=== PATIENT | male | born 1960 | race Caucasian/White ===

== ENCOUNTER → 2017-01-11 | Outpatient (REF) | payer OTHER ==
[~2017-01-11] MED LIST: ACET500C PO; ALLO10TA PO; DILT120C79 PO; KLOR1TAB77 PO; LASI40TA PO; LISI40TAB PO; MAGN400T2 PO; METO50TA2 PO; NORC10TA2 PO; PRAD150C PO; SIMV20TA2 PO; TORS20TA2 PO; ZICAGEL2 PO
[2017-01-11 17:40] LABS: ALBUMIN 4.1 GM/DL (3.2-5.2); ALBUMIN/GLOBULIN RATIO 1.28 (1.00-1.93); BILIRUBIN,TOTAL 0.9 MG/DL (0.2-1.0); CALCIUM LEVEL 8.8 MG/DL (8.5-10.1); CREATININE FOR GFR 1.61 MG/DL (0.70-1.30); GLOMERULAR FILTRATION RATE 47.5 (>56); TOTAL PROTEIN 7.3 GM/DL (6.4-8.2); URIC ACID 6.9 MG/DL (3.5-7.2)
== END ==
LOC: M SFHCCLAY 12:31
PROVIDERS: ATTEND Nurse Practitioner
DX: I10 Essential (primary) hypertension (principal)

== ENCOUNTER → 2017-06-23 | Outpatient (REF) | payer OTHER ==
[~2017-06-23] MED LIST changes: -METO50TA2 PO; +METO50TA7 PO; -NORC10TA2 PO; +NORC10TA21 PO
[2017-06-23 13:01] LABS: ALBUMIN 4.3 GM/DL (3.2-5.2); ALBUMIN/GLOBULIN RATIO 1.26 (1.00-1.93); BILIRUBIN,TOTAL 0.8 MG/DL (0.2-1.0); CALCIUM LEVEL 9.6 MG/DL (8.5-10.1); CREATININE FOR GFR 1.53 MG/DL (0.70-1.30); GLOMERULAR FILTRATION RATE 50.2 (>56); POTASSIUM SERUM 4.9 MEQ/L (3.5-5.1); TOTAL PROTEIN 7.7 GM/DL (6.4-8.2); URIC ACID 6.8 MG/DL (3.5-7.2)
== END ==
LOC: M SFHCCLAY 09:31
PROVIDERS: ATTEND Nurse Practitioner
DX: I10 Essential (primary) hypertension (principal); M10.9 Gout, unspecified; G47.30 Sleep apnea, unspecified

== ENCOUNTER → 2017-08-09 | Outpatient (REF) | payer OTHER ==
[2017-08-09 20:32] LABS: FOLATE 3.2 NG/ML (>5.4)
== END ==
LOC: M SFHCCLAY 11:46
PROVIDERS: ATTEND Family Medicine
DX: G62.9 Polyneuropathy, unspecified (principal)

== ENCOUNTER → 2017-08-09 | Outpatient (REF) | payer OTHER ==
[2017-08-09 19:40] LABS: VITAMIN B12 LEVEL 410 PG/ML
[2017-08-09 19:41] LABS: FOLATE 3.5 NG/ML
[2017-08-09 19:48] LABS: BASO # 0.1 10^3/uL (0.0-0.2); BASO % 0.8 % (0.0-1.0); EOS # 0.2 10^3/uL (0.0-0.50); EOS % 1.8 % (0.0-3.0); IMMATURE GRANULOCYTE % 0.6 % (0-0); LYMPH # 1.6 10^3/uL (1.5-4.5); MEAN CORPUSCULAR HEMOGLOBIN 34.3 pg (27.0-33.0); MEAN CORPUSCULAR HGB CONC 34.1 g/dl (32.0-36.5); MEAN CORPUSCULAR VOLUME 100.7 fl (80.0-96.0); MONO # 0.9 10^3/uL (0.0-0.8); MONO % 6.7 % (0.0-5.0); NEUTROPHILS # 9.8 10^3/uL (1.8-7.7); NEUTROPHILS % 77.1 % (36.0-66.0); PLATELET COUNT, AUTOMATED 219 10^3/uL (150-450); RED CELL DISTRIBUTION WIDTH 13.3 % (11.5-14.5); WHITE BLOOD COUNT 12.6 10^3/uL (4.0-10.0)
[2017-08-09 19:52] LABS: ALBUMIN/GLOBULIN RATIO 1.25 (1.00-1.93); ALKALINE PHOSPHATASE 59 U/L (45-117); ALT/SGPT 36 U/L (12-78); ANION GAP 8 MEQ/L (8-16); AST/SGOT 21 U/L (7-37); BILIRUBIN,TOTAL 1.3 MG/DL (0.2-1.0); BLOOD UREA NITROGEN 20 MG/DL (7-18); CALCIUM LEVEL 9.2 MG/DL (8.5-10.1); CARBON DIOXIDE LEVEL 30 MEQ/L (21-32); CHLORIDE LEVEL 102 MEQ/L (98-107); CREATININE FOR GFR 1.55 MG/DL (0.70-1.30); GLOMERULAR FILTRATION RATE 49.4 (>56); GLUCOSE, FASTING 159 MG/DL (70-105); POTASSIUM SERUM 3.7 MEQ/L (3.5-5.1); SODIUM LEVEL 140 MEQ/L (136-145); TOTAL PROTEIN 7.2 GM/DL (6.4-8.2)
[2017-08-09 20:13] LABS: ERYTHROCYTE SEDIMENTATION RATE 14 mm/hr (0-20)
[2017-08-11 15:24] LABS: ALBUMIN 4.26 GM/DL (3.29-5.55); ALBUMIN % 59.1 % (55.8-66.1); GAMMA GLOBULIN % 12.1 % (11.1-18.8)
[2017-08-12 14:16] LABS: SJOGREN'S ANTI SS-A <0.2 AI (0.0-0.9); SJOGREN'S ANTI SS-B <0.2 AI (0.0-0.9)
== END ==
LOC: M LABDRAWC 16:41
PROVIDERS: ATTEND Psychiatry & Neurology Neurology
DX: G62.9 Polyneuropathy, unspecified (principal)

== ENCOUNTER → 2018-01-06 | Outpatient (CLI) | payer OTHER | LOC: M PAIN 12:30 | DX: G89.29 Other chronic pain (principal); G62.9 Polyneuropathy, unspecified; I11.0 Hypertensive heart disease with heart failure; E78.5 Hyperlipidemia, unspecified; M10.9 Gout, unspecified; I48.91 Unspecified atrial fibrillation; G47.33 Obstructive sleep apnea (adult) (pediatric); G57.93 Unspecified mononeuropathy of bilateral lower limbs; I34.1 Nonrheumatic mitral (valve) prolapse; I50.9 Heart failure, unspecified; Z79.01 Long term (current) use of anticoagulants; Z79.899 Other long term (current) drug therapy; Z87.891 Personal history of nicotine dependence; Z88.8 Allergy status to other drugs, medicaments and biological substances | CPT/HCPCS: G0463 ==

== ENCOUNTER → 2018-01-27 | Outpatient (CLI) | payer OTHER | LOC: M PAIN 15:00 | DX: G62.9 Polyneuropathy, unspecified (principal); I10 Essential (primary) hypertension; E78.5 Hyperlipidemia, unspecified; I48.91 Unspecified atrial fibrillation; G47.33 Obstructive sleep apnea (adult) (pediatric); Z79.01 Long term (current) use of anticoagulants; Z79.891 Long term (current) use of opiate analgesic; Z79.899 Other long term (current) drug therapy; Z88.8 Allergy status to other drugs, medicaments and biological substances; Z87.891 Personal history of nicotine dependence | CPT/HCPCS: G0463 ==

== ENCOUNTER → 2018-03-13 | Outpatient (CLI) | payer OTHER | LOC: M PAIN 14:30 | DX: G62.9 Polyneuropathy, unspecified (principal); I10 Essential (primary) hypertension; E78.5 Hyperlipidemia, unspecified; M10.9 Gout, unspecified; I48.91 Unspecified atrial fibrillation; Z79.01 Long term (current) use of anticoagulants; Z79.891 Long term (current) use of opiate analgesic; Z79.899 Other long term (current) drug therapy; Z87.891 Personal history of nicotine dependence; Z88.8 Allergy status to other drugs, medicaments and biological substances | CPT/HCPCS: G0463 ==

== ENCOUNTER → 2018-04-24 | Outpatient (CLI) | payer OTHER | LOC: M PAIN 13:45 | DX: G62.9 Polyneuropathy, unspecified (principal); I10 Essential (primary) hypertension; E78.5 Hyperlipidemia, unspecified; I48.91 Unspecified atrial fibrillation; G47.33 Obstructive sleep apnea (adult) (pediatric); I34.0 Nonrheumatic mitral (valve) insufficiency; Z79.01 Long term (current) use of anticoagulants; Z79.891 Long term (current) use of opiate analgesic; Z79.899 Other long term (current) drug therapy; Z88.8 Allergy status to other drugs, medicaments and biological substances; Z87.39 Personal history of other diseases of the musculoskeletal system and connective tissue; Z86.79 Personal history of other diseases of the circulatory system; Z87.891 Personal history of nicotine dependence | CPT/HCPCS: G0463 ==

== ENCOUNTER → 2018-05-15 | Outpatient (REF) | payer OTHER ==
[2018-05-15 16:40] LABS: BASO # 0.1 10^3/uL (0.0-0.2); BASO % 1.2 % (0.0-1.0); EOS # 0.4 10^3/uL (0.0-0.50); EOS % 3.9 % (0.0-3.0); HEMATOCRIT 43.1 % (42.0-52.0); IMMATURE GRANULOCYTE % 0.9 % (0-3.0); LYMPH % 20.7 % (24.0-44.0); MEAN CORPUSCULAR HEMOGLOBIN 33.9 pg (27.0-33.0); MEAN CORPUSCULAR HGB CONC 34.8 g/dl (32.0-36.5); MEAN CORPUSCULAR VOLUME 97.3 fl (80.0-96.0); MONO % 9.8 % (0.0-5.0); NEUTROPHILS # 6.3 10^3/uL (1.8-7.7); NEUTROPHILS % 63.5 % (36.0-66.0); PLATELET COUNT, AUTOMATED 224 10^3/uL (150-450); RED BLOOD COUNT 4.43 10^6/uL (4.30-6.10); WHITE BLOOD COUNT 9.8 10^3/uL (4.0-10.0)
[2018-05-15 16:46] LABS: ESTIMATED AVERAGE GLUCOSE 126 MG/DL (60-110)
[2018-05-15 16:49] LABS: ALBUMIN 3.9 GM/DL (3.2-5.2); ALBUMIN/GLOBULIN RATIO 1.05 (1.00-1.93); ALKALINE PHOSPHATASE 63 U/L (45-117); ALT/SGPT 28 U/L (12-78); ANION GAP 8 MEQ/L (8-16); AST/SGOT 23 U/L (7-37); BILIRUBIN,TOTAL 1.7 MG/DL (0.2-1.0); BLOOD UREA NITROGEN 24 MG/DL (7-18); CALCIUM LEVEL 8.6 MG/DL (8.5-10.1); CARBON DIOXIDE LEVEL 32 MEQ/L (21-32); CHLORIDE LEVEL 101 MEQ/L (98-107); CREATININE FOR GFR 1.75 MG/DL (0.70-1.30); FREE T4 1.05 NG/DL (0.76-1.46); GLOMERULAR FILTRATION RATE 42.8 (>56); GLUCOSE, FASTING 116 MG/DL (70-100); POTASSIUM SERUM 3.7 MEQ/L (3.5-5.1); SODIUM LEVEL 141 MEQ/L (136-145); TOTAL PROTEIN 7.6 GM/DL (6.4-8.2)
[2018-05-15 16:50] LABS: FOLATE > 24.0 NG/ML (>5.4)
== END ==
LOC: M SFHCCLAY 11:27
DX: E53.8 Deficiency of other specified B group vitamins (principal); E78.5 Hyperlipidemia, unspecified; R73.9 Hyperglycemia, unspecified; I10 Essential (primary) hypertension; I48.91 Unspecified atrial fibrillation
CPT/HCPCS: 82746

== ENCOUNTER → 2018-06-28 | Outpatient (CLI) | payer OTHER | LOC: M PAIN 14:45 | DX: G62.9 Polyneuropathy, unspecified (principal); I10 Essential (primary) hypertension; I48.91 Unspecified atrial fibrillation; E78.5 Hyperlipidemia, unspecified; G47.33 Obstructive sleep apnea (adult) (pediatric); E66.01 Morbid (severe) obesity due to excess calories; Z68.41 Body mass index [BMI] 40.0-44.9, adult; Z79.01 Long term (current) use of anticoagulants; Z79.891 Long term (current) use of opiate analgesic; Z79.899 Other long term (current) drug therapy; Z88.8 Allergy status to other drugs, medicaments and biological substances; Z86.79 Personal history of other diseases of the circulatory system; Z87.39 Personal history of other diseases of the musculoskeletal system and connective tissue; Z87.891 Personal history of nicotine dependence | CPT/HCPCS: G0463 ==

== ENCOUNTER → 2018-08-28 | Outpatient (CLI) | payer OTHER | LOC: M PAIN 14:15 | DX: G62.9 Polyneuropathy, unspecified (principal); I10 Essential (primary) hypertension; E78.5 Hyperlipidemia, unspecified; I48.91 Unspecified atrial fibrillation; G47.33 Obstructive sleep apnea (adult) (pediatric); Z79.01 Long term (current) use of anticoagulants; E66.01 Morbid (severe) obesity due to excess calories; Z68.41 Body mass index [BMI] 40.0-44.9, adult; Z79.899 Other long term (current) drug therapy; Z79.891 Long term (current) use of opiate analgesic; Z88.8 Allergy status to other drugs, medicaments and biological substances; Z86.79 Personal history of other diseases of the circulatory system; Z87.39 Personal history of other diseases of the musculoskeletal system and connective tissue; Z87.891 Personal history of nicotine dependence | CPT/HCPCS: G0463 ==

== ENCOUNTER → 2018-12-11 | Outpatient (CLI) | payer OTHER ==
[~2018-12-11] MED LIST changes: -DILT120C79 PO; +DILT1CAP48 PO; -LASI40TA PO; +LASI40TA9 PO
--- NOTE | 2018-12-23 23:51 | ECWPNPC ---
PATIENT NAME: BUSHRA CAIRAS : 1960 GENDER: MALE VISIT DATE: 12/11/2018 DISCHARGE DATE: 12/11/18 1450 VISIT LOCKED DATE TIME: PHYSICIAN: MATI SMITH MD PHYSICIAN PAGER NO: [phone] RESOURCE: MATI SMITH MD REASON FOR APPOINTMENT 1. NEUROPATHY HISTORY OF PRESENT ILLNESS HISTORY OF PRESENT ILLNESS: PAIN THE PATIENT DESCRIBES THE PAIN... 58 YEAR OLD MALE PATIENT WITH A HISTORY OF CHRONIC LOW BACK AND LEG PAIN. THE PATIENT DESCRIBES THE PAIN BURNING, SORE, SHARP, STABBING, AND CONTINUOUS WITH A PAIN SCORE OF 5-9/10 DEPENDING ON PHYSICAL ACTIVITY. 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 THE PATIENT IS CURRENTLY USING TRAMADOL, LYRICA, AND HYDROCODONE TO AID IN PAIN RELIEF. THE PATIENT REPORTS HAVING A HEART ATTACK ON 10/18/2018 AND HIS CARDIAC CONDITION IS CURRENTLY BEING OPTIMIZED. PATIENT DENIES UNEXPLAINABLE WEIGHT LOSS, FEVER, CHILLS, NEW CHANGES ON HIS URINARY OR BOWEL CONTROL. FALL RISK SCREENING: SCREENING : NO FALLS IN THE PAST YEAR. CURRENT MEDICATIONS TAKING FOLIC ACID 1 MG TABLET 1 TABLET ORALLY ONCE A DAY TAKING ALLOPURINOL 300 MG TABLET 1 TABLET ORALLY DAILY TAKING METOPROLOL TARTRATE 100 MG TABLET 1 TABLET ORALLY BID TAKING TORSEMIDE 10 MG TABLET 1 TABLET ORALLY BID TAKING PRADAXA 150 MG 1 TABLET TWICE A DAY TAKING SLOW-MAG 400 TABLET DELAYED RELEASE 1 TABLET ORALLY DAILY, NOTES: CURRENTLY OUT OF TAKING NORTRIPTYLINE HCL 25 MG CAPSULE 1 CAPSULE ORALLY TWICE A DAY TAKING LYRICA 50 MG CAPSULE 1 CAPSULE ORALLY FOR PAIN TWICE A DAY TAKING DILTIAZEM HCL ER 240 MG CAPSULE EXTENDED RELEASE 24 HOUR 1 CAPSULE ON AN EMPTY STOMACH IN THE MORNING ORALLY ONCE A DAY TAKING AMIODARONE HCL 200 MG TABLET 1 TABLET ORALLY ONCE A DAY TAKING RANOLAZINE ER 500 MG TABLET EXTENDED RELEASE 12 HOUR 1 TABLET ORALLY TWICE A DAY TAKING SPIRONOLACTONE 25 MG TABLET 1 TABLET ORALLY TAKING NORCO 10-325 MG TABLET 1 TABLET NEEDED ORALLY EVERY 8 HOURS NEEDED FOR PAIN MDD3 TAKING TRAMADOL HCL 50 MG TABLET 1-2 TAB ORALLY EVERY 6 HRS PRN PAIN MDD=4 NOT-TAKING ROLLING WALKER 1 1 DIRECTED DX: G62.9 NOT-TAKING GABAPENTIN 300 MG CAPSULE 1 CAPSULE ORALLY FOR PAIN BEFORE BEDTIME NOT-TAKING GABAPENTIN 600 MG TABLET 1 CAPSULE ORALLY DAILY DISCONTINUED NORTRIPTYLINE HCL 25 MG CAPSULE 1 CAPSULE ORALLY TWICE A DAY, NOTES: DUPLICATE DISCONTINUED FOLIC ACID 1 MG TABLET 1 TABLET ORALLY ONCE A DAY, NOTES: DUPLICATE DISCONTINUED METOPROLOL SUCCINATE ER 100 MG TABLET EXTENDED RELEASE 24 HOUR 1 TABLET ORALLY ONCE A DAY, NOTES: DUPLICATE MEDICATION LIST REVIEWED AND RECONCILED WITH THE PATIENT PAST MEDICAL HISTORY HYPERTENSION HYPERLIPIDEMIA GOUT ATRIAL FIB MICH- USES BIPAP- FOLLOWS WITH PULMONARY NEUROPATHY BOTH FEET ENLARGED HEART MITRAL REGURGITATION CONGESTIVE HEART FAILURE ALLERGIES LISINOPRIL: LIGHTHEADEDNESS - SIDE EFFECTS CYMBALTA: NAUSEA/VOMITING - SIDE EFFECTS SURGICAL HISTORY 4TH METACARPAL RIGHT HAND SURGERY, A CHILD 1979 WISDOM TEETH EXTRACT CYST REMOVAL- LEFT SHOULDER 08/2016 CARDIOVERSION X 5 [id number] HEART [facility]ATH-[facility] 04/12/18 INSERTION OF BI-VENTRICULAR ICD @[facility]' 10/26/2018 FAMILY HISTORY FATHER: 69 YRS, DIVERTICULITIS, ANEURYSM MOTHER: 83 YRS, CARDIAC DISEASE, DIAGNOSED WITH HEART DISEASE 3DAUGHTER(S) . SOCIAL HISTORY GENERAL: TOBACCO USE ARE YOU A:FORMER SMOKER HOW LONG HAS IT BEEN SINCE YOU LAST SMOKED?> 10 YEARS VAPORNO E-CIGARETTENO LATEX QUESTIONNAIRE LATEX ALLERGY : HAVE YOU EVER DEVELOPED ANY TYPE OF REACTION AFTER HANDLING LATEX PRODUCTS SUCH RUBBER GLOVES, CONDOMS, DIAPHRAGMS, BALLOONS, SOCKS, OR UNDERWEAR?NO LATEX ALLERGY : HAVE YOU EVER DEVELOPED ANY TYPE OF REACTION DURING OR AFTER DENTAL APPOINTMENT, VAGINAL/RECTAL EXAMINATION, SURGICAL PROCEDURE, OR ANY OTHER EXPOSURE?NO LATEX RISK : HAVE YOU EVER HAD ANY DIFFICULTY BREATHING OR HIVES AFTER EATING OR HANDLING ANY FRUITS, OR VEGETABLES; SUCH KIWI, BANANAS, STONE FRUITS, OR CHESTNUTSNO LATEX RISK : DO YOU HAVE A PREVIOUS PERSONAL HISTORY OF MORE THAN NINE SURGERIES, SPINA BIFIDA, OR REPEATED CATHERTIZATIONS? NO LATEX RISK : ARE YOU FREQUENTLY EXPOSED TO LATEX PRODUCTS IN YOUR OCCUPATION?NO DATE ASKED : 12/11/2018 BMI CARE GOAL FOLLOW-UP ABOVE NORMAL BMI FOLLOW-UPDIETARY MANAGEMENT EDUCATION, GUIDANCE, AND COUNSELING ALCOHOL SCREENING DID YOU HAVE A DRINK CONTAINING ALCOHOL IN THE PAST YEAR?YES HOW OFTEN DID YOU HAVE SIX OR MORE DRINKS ON ONE OCCASION IN THE PAST YEAR?NEVER (0 POINTS) HOW MANY DRINKS DID YOU HAVE ON A TYPICAL DAY WHEN YOU WERE DRINKING IN THE PAST YEAR?1 OR 2 (0 POINTS) HOW OFTEN DID YOU HAVE A DRINK CONTAINING ALCOHOL IN THE PAST YEAR?TWO TO THREE TIMES PER WEEK (3 POINTS) POINTS3 INTERPRETATIONNEGATIVE RECREATIONAL DRUG USE DRUG USE?NO MARIJUANA IN PAST, NONE RECENTLY NO CAFFEINE CAFFEINE USE?NO SEXUAL HX HAD SEX IN THE LAST 12 MONTHS (VAGINAL, ORAL, OR ANAL)?NO HAVE YOU EVER HAD AN STD?NO HIV / HEP-C SCREENING HIV TEST OFFERED TO PATIENT:YES DATE OFFERED:09/11/2018 TEST ACCEPTED:NO HEP-C TEST OFFERED TO PATIENT:YES DATE OFFERED:09/11/2018 REASON:PATIENT DECLINED TEST ACCEPTED:NO REASON:PATIENT DECLINED BROCHURE PROVIDED TO PATIENTNO SIKH [id number] YAZIDISM LANGUAGE LANGUAGES SPOKEN:VINCENTIAN EDUCATION LEVEL OF EDUCATION:COLLEGE LEARNING BARRIERS / SPECIAL NEEDS CHANGE FROM LAST VISIT?NO 11/10/2018 BARRIERS TO LEARNING?NO HEARING IMPAIRED?NO VISION IMPAIRED?YES COGNITIVELY IMPAIRED?NO :CORRECTIVE LENSES READINESS TO LEARN?YES LEARNING PREFERENCES?NO LEARNING CAPABILITIES PRESENT?YES EMOTIONAL BARRIERS?NO SPECIAL DEVICES?YES :OTHER WALKING STICK ENTRY LEVEL BUYER NEEDED?NO NO DOMESTIC VIOLENCE DO YOU FEEL SAFE IN YOUR ENVIRONMENT?YES 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 DIET: LOW FAT, LOW CHOLESTEROL, LOW SODIUM. EXERCISE: NONE. MARITAL STATUS: .. OTHERS AT HOME: NONE. PAIN CLINIC PFS, CLERGY, PUBLIC HEALTH REFERRALS PFS REFERRAL NEEDED?NO CLERGY REFERRAL NEEDED?NO PUBLIC HEALTH REFERRAL NEEDED?NO WAS THE PROVIDER NOTIFIED OF ANY PERTINENT INFO?NO HAS THE PATIENT BEEN EDUCATED REGARDING HIS/HER PLAN OF CARE?YES HAS THE PATIENT BEEN EDUCATED REGARDING PAIN, THE RISK FOR PAIN, THE IMPORTANCE OF EFFECTIVE PAIN MANAGEMENT, AND THE PAIN ASSESSMENT PROCESS?YES ADVANCE DIRECTIVE ADVANCE DIRECTIVE DISCUSSED WITH PATIENT:YES PT STATES HE DOES NOT HAVE HCP AND DECLINES INFO AT THIS TIME 12/11/18 REVIEWED WITH PT 12/11/18 1320 BV. HOSPITALIZATION/MAJOR DIAGNOSTIC PROCEDURE MULTIPLE HOSPITALIZATIONS [facility] HEART ATTACK/PLACEMENT OF ICD 10/23/2018-10/30/2018 REVIEW OF SYSTEMS REVIEWED BY: PROVIDER: MATI SMITH MD . CONSTITUTIONAL: ANY CHANGE IN YOUR MEDICAL CONDITION? YES, PT HAD HEART ATTACK AT HOME ON 2017. WAS TAKEN TO [facility]. PACEMAKER/DEFIBRILLATOR WAS PUT IN. WAS DISCHARGED FROM [facility] ON . PT ALSO HAD CARDIAC ABLATION DONE 12/08/18 . CHILLS NO . FEVER NO . INFECTION: DO YOU HAVE NEW INFECTIONS? NO . DO YOU HAVE HISTORY OF MRSA? NO . MUSCULOSKELETAL: ANY NEW PATTERNS OF PAIN OR NUMBNESS? NO . GASTROENTEROLOGY: ANY NEW CHANGE IN BOWEL CONTROL? NO . GENITOURINARY: ANY NEW CHANGE IN BLADDER CONTROL? NO . IS THERE A CHANCE YOU COULD BE ? NO . HEMATOLOGY/LYMPH: DO YOU TAKE ANY BLOOD THINNERS? (FOR EXAMPLE- COUMADIN, PLAVIX, AGGRENOX, PLATEL, PRADAXA, OR XARELTO) YES, PRADAXA . WHEN WAS YOUR LAST DOSE? DATE: TIME: . NEUROLOGY: HAVE YOU FALLEN IN THE PAST 12 MONTHS? YES, PT HAS HAD A FEW FALLS IN THE PAST COUPLE MONTHS. LAST FALL WAS 2018 AND WAS TAKEN TO THE HOSPITAL AFTER THE FALL AND TREATED. . ANY NEW EXTREMITY NUMBNESS OR WEAKNESS? NO . CARDIOLOGY: DO YOU HAVE A PACEMAKER OR DEFIBRILLATOR? YES, PACEMAKER/DEFIBRILLATOR PUT IN IN 2018 . RESPIRATORY: HAVE YOU BEEN SICK IN THE PAST WEEK? NO . FEVER NO . FLU LIKE SYMPTOMS? NO . COUGH NO . INTEGUMENTARY: DO YOU HAVE ANY RASHES OR OPEN SORES? NO . ALLERGIC/IMMUNO: ARE YOU ALLERGIC TO IV DYE? NO . ANY NEW ALLERGIES? NO . PSYCHIATRIC: DO YOU HAVE THOUGHTS OF HURTING YOURSELF OR SOMEONE ELSE? NO . ARE YOU ABUSED, NEGLECTED, OR IN AN UNSAFE ENVIRONMENT? NO . ENDOCRINOLOGY: ARE YOU DIABETIC? NO . OTHER: DO YOU NEED ANY PRESCRIPTIONS? NO . IF YES, PLEASE LIST: ____ . ANY NEW PROBLEMS WITH YOUR MEDICATIONS? NO . WHEN DID YOU LAST EAT? ____ . WHEN DID YOU LAST DRINK? ____ . WHAT DID YOU LAST DRINK? ____ . NAME OF PERSON DRIVING YOU HOME? ____ . DO YOU HAVE ANY OTHER QUESTIONS OR CONCERNS NO . VITAL SIGNS WT 310 LBS, HT 72 IN, BMI 42.04 INDEX, BP 137/98 MM HG, HR 90 /MIN, RR 18 /MIN, TEMP 96.8 F, OXYGEN SAT % 98% O2 AT 3L, NA INITIALS AW 1252, REVIEWED BY: BV. EXAMINATION GENERAL EXAMINATION: PATIENT IS ALERT O X 3 AND COOPERATIVE. PATIENT IS USING OXYGEN. TENDERNESS IN THE LOW BACK AREA AND OVER BOTH FEET. MRI OF THE LUMBAR SPINE DONE ON 08/30/2017 SHOWS A DISC PROTRUSION AT MULTIPLE LEVELS. ASSESSMENTS INTERVERTEBRAL DISC DISORDER WITH RADICULOPATHY OF LUMBAR REGION - M51.16 (PRIMARY) NEUROPATHY - G62.9 TREATMENT INTERVERTEBRAL DISC DISORDER WITH RADICULOPATHY OF LUMBAR REGION CLINICAL NOTES: WE DISCUSSED SEVERAL ISSUES WITH MR. CARIAS'S PAIN MANAGEMENT CASE. THE PATIENT WILL CONTINUE WITH THE SAME MEDICATIONS AND I WILL INCREASE THE TRAMADOL TO 140 TABLETS PER MONTH. ISTOP _#[id number] WAS REVIEWED. I WILL PERFORM A PILL COUNTING AND A URINE TOXICOLOGY TODAY. THE PATIENT WILL FOLLOW UP IN 2 MONTHS. INSTRUCTIONS WERE GIVEN, QUESTIONS WERE ANSWERED, PATIENT REPORTS UNDERSTANDING AND AGREES WITH THE PLAN. I, NAHID BHATT, DOCUMENTED THE ABOVE INFORMATION ACTING A SCRIBE FOR DR. SMITH. I HAVE REVIEWED THE ABOVE DOCUMENT, WRITTEN BY NAHID BHATT SCRIBKun AND I VERIFY THAT IT IS ACCURATE. . OTHERS REFILL LYRICA CAPSULE, 50 MG, 1 CAPSULE, ORALLY FOR PAIN, TWICE A DAY, 30 DAYS, 60 CAPSULE, REFILLS 0 REFILL NORCO TABLET, 10-325 MG, 1 TABLET NEEDED, ORALLY, EVERY 8 HOURS NEEDED FOR PAIN MDD3, 30 DAY(S), 90, REFILLS 0 REFILL TRAMADOL HCL TABLET, 50 MG, 1-2 TAB, ORALLY, EVERY 6 HRS PRN PAIN MDD=5, 30 DAYS, 140, REFILLS 0 PROCEDURE CODES FA211 ESTABILISHED PATIENT [facility] FACILITY CHARGE G8427 CURRENT MEDS W/DOSAGES DOCUMENTED G8730 PAIN ASSESS POS TOOL F/U PLAN DOC DISPOSITION & COMMUNICATION FOLLOW UP 2 MONTHS (REASON: LOW BACK & NEUROPATHY) ELECTRONICALLY SIGNED BY MATI SMTIH MD, MD ON 12/22/2018 AT 12:38 PM EDT DISCLAIMER : THIS IS A VISIT SUMMARY EXTRACTED FROM THE [email or web address] CHART. IT IS NOT A COPY OF THE [email or web address] PROGRESS NOTE. MTDD
== END ==
LOC: M PAIN 12:45
PROVIDERS: ATTEND Anesthesiology
DX: M51.16 Intervertebral disc disorders with radiculopathy, lumbar region (principal); G62.9 Polyneuropathy, unspecified; I48.91 Unspecified atrial fibrillation; I10 Essential (primary) hypertension; E78.5 Hyperlipidemia, unspecified; G47.33 Obstructive sleep apnea (adult) (pediatric); E66.01 Morbid (severe) obesity due to excess calories; Z68.41 Body mass index [BMI] 40.0-44.9, adult; Z79.01 Long term (current) use of anticoagulants; Z79.891 Long term (current) use of opiate analgesic; Z79.899 Other long term (current) drug therapy; Z91.81 History of falling; Z95.0 Presence of cardiac pacemaker; Z88.8 Allergy status to other drugs, medicaments and biological substances; Z87.39 Personal history of other diseases of the musculoskeletal system and connective tissue; Z86.79 Personal history of other diseases of the circulatory system; Z87.891 Personal history of nicotine dependence

== ENCOUNTER → 2019-03-02 | Outpatient (REF) | payer OTHER ==
[~2019-03-02] MED LIST changes: +DILT120C78 PO; -DILT1CAP48 PO; +LISI40TA52 PO; -LISI40TAB PO; -NORC10TA21 PO; +NORC1TAB5 PO; -PRAD150C PO; +PRAD150C6 PO
[2019-03-02 17:30] LABS: BASO # 0.1 10^3/uL (0.0-0.2); BASO % 1.1 % (0.0-1.0); EOS # 0.4 10^3/uL (0.0-0.50); EOS % 4.6 % (0.0-3.0); HEMATOCRIT 44.7 % (42.0-52.0); HEMOGLOBIN 15.6 g/dl (13.5-17.5); LYMPH # 2.4 10^3/uL (1.5-4.5); LYMPH % 26.2 % (24.0-44.0); MEAN CORPUSCULAR HEMOGLOBIN 33.7 pg (27.0-33.0); MEAN CORPUSCULAR HGB CONC 34.9 g/dl (32.0-36.5); MEAN CORPUSCULAR VOLUME 96.5 fl (80.0-96.0); MONO # 0.7 10^3/uL (0.0-0.8); MONO % 7.9 % (0.0-5.0); NEUTROPHILS # 5.3 10^3/uL (1.8-7.7); NEUTROPHILS % 59.6 % (36.0-66.0); PLATELET COUNT, AUTOMATED 231 10^3/uL (150-450); RED BLOOD COUNT 4.63 10^6/uL (4.30-6.10)
[2019-03-02 17:47] LABS: ALBUMIN 3.9 GM/DL (3.2-5.2); BILIRUBIN,TOTAL 0.6 MG/DL (0.2-1.0); CALCIUM LEVEL 8.9 MG/DL (8.5-10.1); CREATININE FOR GFR 1.87 MG/DL (0.70-1.30); FOLATE 20.9 NG/ML (>5.4); FREE T4 0.92 NG/DL (0.76-1.46); GLOMERULAR FILTRATION RATE 39.5 (>56); MAGNESIUM LEVEL 1.9 MG/DL (1.8-2.4); POTASSIUM SERUM 4.4 MEQ/L (3.5-5.1); THYROID STIMULATING HORMONE 4.33 uIU/ML (0.358-3.740); TOTAL PROTEIN 7.9 GM/DL (6.4-8.2)
== END ==
LOC: M SFHCCLAY 12:58
PROVIDERS: ATTEND Family Medicine
DX: Z51.81 Encounter for therapeutic drug level monitoring (principal); Z79.01 Long term (current) use of anticoagulants; I47.2 Ventricular tachycardia; E53.8 Deficiency of other specified B group vitamins; I48.91 Unspecified atrial fibrillation

== ENCOUNTER → 2019-03-02 | Outpatient (REF) | payer OTHER ==
[2019-03-02 17:42] LABS: CHOLESTEROL LEVEL 226 MG/DL (<200); CHOLESTEROL RISK RATIO 5.947 (<5); HDL CHOLESTEROL 38 MG/DL (>40); NON-HDL-C 188 MG/DL; NT-PRO BNP 989 PG/ML (<125); TRIGLYCERIDES LEVEL 409 MG/DL (<150)
== END ==
LOC: M LABDRAWC 16:44
PROVIDERS: ATTEND Internal Medicine Cardiovascular Disease
DX: I50.9 Heart failure, unspecified (principal)

== ENCOUNTER → 2019-03-19 | Outpatient (CLI) | payer OTHER ==
--- NOTE | 2019-03-28 00:29 | ECWPNPC ---
PATIENT NAME: BUSHRA CARIAS : 1960 GENDER: MALE VISIT DATE: 03/19/2019 DISCHARGE DATE: 03/19/199 VISIT LOCKED DATE TIME: PHYSICIAN: MATI SMITH MD PHYSICIAN PAGER NO: [phone] RESOURCE: MATI SMITH MD REASON FOR APPOINTMENT 1. DISCUSS MEDICATION-LOW BACK & NEUROPATHY HISTORY OF PRESENT ILLNESS HISTORY OF PRESENT ILLNESS: PAIN THE PATIENT DESCRIBES THE PAIN... 59 YEAR OLD MALE PATIENT WITH A HISTORY OF CHRONIC NEUROPATHY AND LOW BACK PAIN. THE PATIENT DESCRIBES THE PAIN BURNING, SHARP, STABBING, SHOOTING, AND CONTINUOUS WITH A PAIN SCORE OF 6-9/10 DEPENDING ON PHYSICAL ACTIVITY. THE PATIENT SAYS THAT HE HAS DIFFICULTY DOING DAILY ACTIVITIES SUCH COOKING AND CLEANING DUE TO THIS PAIN. THE PATIENT IS CURRENTLY USING TRAMADOL, LYRICA, AND NORCO TO AID IN PAIN RELIEF. PATIENT DENIES UNEXPLAINABLE WEIGHT LOSS, FEVER, CHILLS, NEW CHANGES ON HIS URINARY OR BOWEL CONTROL. FALL RISK SCREENING: SCREENING :NO FALLS REPORTED IN THE LAST YEAR CURRENT MEDICATIONS TAKING FOLIC ACID 1 MG TABLET 1 TABLET ORALLY ONCE A DAY TAKING ALLOPURINOL 300 MG TABLET 1 TABLET ORALLY DAILY TAKING METOPROLOL TARTRATE 100 MG TABLET 1 TABLET ORALLY BID TAKING TORSEMIDE 10 MG TABLET 1 TABLET ORALLY BID TAKING PRADAXA 150 MG 1 TABLET TWICE A DAY TAKING DILTIAZEM HCL ER 240 MG CAPSULE EXTENDED RELEASE 24 HOUR 1 CAPSULE ON AN EMPTY STOMACH IN THE MORNING ORALLY ONCE A DAY TAKING AMIODARONE HCL 200 MG TABLET 1 TABLET ORALLY ONCE A DAY TAKING RANOLAZINE ER 500 MG TABLET EXTENDED RELEASE 12 HOUR 1 TABLET ORALLY TWICE A DAY TAKING SPIRONOLACTONE 25 MG TABLET 1 TABLET ORALLY DAILY TAKING NORTRIPTYLINE HCL 25 MG CAPSULE 1 CAPSULE ORALLY TWICE A DAY TAKING LYRICA 50 MG CAPSULE 1 CAPSULE ORALLY FOR PAIN TWICE A DAY TAKING NORCO 10-325 MG TABLET 1 TABLET NEEDED ORALLY EVERY 8 HRS MDD=3 TAKING TRAMADOL HCL 50 MG TABLET 1 TAB ORALLY EVERY 6 HRS PRN PAIN MDD=4 TAKING ROLLING WALKER 1 1 DIRECTED DX: G62.9 NOT-TAKING SLOW-MAG 400 TABLET DELAYED RELEASE 1 TABLET ORALLY DAILY NOT-TAKING GABAPENTIN 300 MG CAPSULE 1 CAPSULE ORALLY FOR PAIN BEFORE BEDTIME NOT-TAKING GABAPENTIN 600 MG TABLET 1 CAPSULE ORALLY DAILY MEDICATION LIST REVIEWED AND RECONCILED WITH THE PATIENT PAST MEDICAL HISTORY HYPERTENSION HYPERLIPIDEMIA GOUT ATRIAL FIB MICH- USES BIPAP- FOLLOWS WITH PULMONARY NEUROPATHY BOTH FEET ENLARGED HEART MITRAL REGURGITATION CONGESTIVE HEART FAILURE NM 09/2018 CARDIAC ABLASION 12/08/18 ALLERGIES LISINOPRIL: LIGHTHEADEDNESS - SIDE EFFECTS CYMBALTA: NAUSEA/VOMITING - SIDE EFFECTS SURGICAL HISTORY 4TH METACARPAL RIGHT HAND SURGERY, A CHILD 1979 WISDOM TEETH EXTRACT CYST REMOVAL- LEFT SHOULDER 08/2016 CARDIOVERSION X 5 [id number] HEART CATH-[facility] 04/12/18 INSERTION OF BI-VENTRICULAR ICD @[facility] 10/27/18 CARDIAC ABLASION 11/10/18 FAMILY HISTORY FATHER: 69 YRS, DIVERTICULITIS, ANEURYSM MOTHER: 83 YRS, CARDIAC DISEASE, DIAGNOSED WITH HEART DISEASE 3DAUGHTER(S) . SOCIAL HISTORY GENERAL: TOBACCO USE ARE YOU A:FORMER SMOKER HOW LONG HAS IT BEEN SINCE YOU LAST SMOKED?> 10 YEARS VAPORNO E-CIGARETTENO HIV / HEP-C SCREENING HIV TEST OFFERED TO PATIENT:YES DATE OFFERED:09/11/2018 TEST ACCEPTED:NO HEP-C TEST OFFERED TO PATIENT:YES DATE OFFERED:09/11/2018 REASON:PATIENT DECLINED TEST ACCEPTED:NO REASON:PATIENT DECLINED BROCHURE PROVIDED TO PATIENTNO OTHERS AT HOME: NONE. EDUCATION LEVEL OF EDUCATION:COLLEGE DIET: LOW FAT, LOW CHOLESTEROL, LOW SODIUM. LANGUAGE LANGUAGES SPOKEN:HEBREW NO DOMESTIC VIOLENCE DO YOU FEEL SAFE IN YOUR ENVIRONMENT?YES BMI CARE GOAL FOLLOW-UP ABOVE NORMAL BMI FOLLOW-UPDIETARY MANAGEMENT EDUCATION, GUIDANCE, AND COUNSELING RECREATIONAL DRUG USE DRUG USE?NO MARIJUANA IN PAST, NONE RECENTLY EXERCISE: NONE. 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 N/A HAS THE PATIENT BEEN EDUCATED REGARDING HIS/HER PLAN OF CARE?YES HAS THE PATIENT BEEN EDUCATED REGARDING PAIN, THE RISK FOR PAIN, THE IMPORTANCE OF EFFECTIVE PAIN MANAGEMENT, AND THE PAIN ASSESSMENT PROCESS?YES LATEX QUESTIONNAIRE LATEX ALLERGY : HAVE YOU EVER DEVELOPED ANY TYPE OF REACTION AFTER HANDLING LATEX PRODUCTS SUCH RUBBER GLOVES, CONDOMS, DIAPHRAGMS, BALLOONS, SOCKS, OR UNDERWEAR?NO LATEX ALLERGY : HAVE YOU EVER DEVELOPED ANY TYPE OF REACTION DURING OR AFTER DENTAL APPOINTMENT, VAGINAL/RECTAL EXAMINATION, SURGICAL PROCEDURE, OR ANY OTHER EXPOSURE?NO LATEX RISK : HAVE YOU EVER HAD ANY DIFFICULTY BREATHING OR HIVES AFTER EATING OR HANDLING ANY FRUITS, OR VEGETABLES; SUCH KIWI, BANANAS, STONE FRUITS, OR CHESTNUTSNO LATEX RISK : DO YOU HAVE A PREVIOUS PERSONAL HISTORY OF MORE THAN NINE SURGERIES, SPINA BIFIDA, OR REPEATED CATHERTIZATIONS? NO LATEX RISK : ARE YOU FREQUENTLY EXPOSED TO LATEX PRODUCTS IN YOUR OCCUPATION?NO DATE ASKED : 03/19/2019 NO CAFFEINE CAFFEINE USE?NO ADVANCE DIRECTIVE ADVANCE DIRECTIVE DISCUSSED WITH PATIENT:YES 03/21/19 PT STATES HE DOES NOT HAVE ANY ADVANCE DIRECTIVES AND HE DECLINES INFORMATION ON HCP AT THIS TIME. AD DRUZE [id number] YAZDANISM MARITAL STATUS: .. 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 SEXUAL HX HAD SEX IN THE LAST 12 MONTHS (VAGINAL, ORAL, OR ANAL)?NO HAVE YOU EVER HAD AN STD?NO REVIEWED WITH PT 12/11/18 1320 BV. HOSPITALIZATION/MAJOR DIAGNOSTIC PROCEDURE MULTIPLE HOSPITALIZATIONS FOR HIS HEART [facility] ATTACK/PLACEMENT OF ICD 10/23/2018-10/30/2018 REVIEW OF SYSTEMS REVIEWED BY: PROVIDER: MATI SMITH MD . CONSTITUTIONAL: ANY CHANGE IN YOUR MEDICAL CONDITION? NO . CHILLS NO . FEVER NO . INFECTION: DO YOU HAVE NEW INFECTIONS? NO . DO YOU HAVE HISTORY OF MRSA? NO . MUSCULOSKELETAL: ANY NEW PATTERNS OF PAIN OR NUMBNESS? YES, INCREASE IN PAIN DUE TO HAVING TO GET TO HOUSE BY BOAT AND THEN CARRYING SUPPLIES FROM BOAT TO HOUSE . GASTROENTEROLOGY: ANY NEW CHANGE IN BOWEL CONTROL? NO . GENITOURINARY: ANY NEW CHANGE IN BLADDER CONTROL? NO . IS THERE A CHANCE YOU COULD BE ? NO . HEMATOLOGY/LYMPH: DO YOU TAKE ANY BLOOD THINNERS? (FOR EXAMPLE- COUMADIN, PLAVIX, AGGRENOX, PLATEL, PRADAXA, OR XARELTO) YES PRADAXA . WHEN WAS YOUR LAST DOSE? DATE: TIME:03/19/19 10:30 A.M. . NEUROLOGY: HAVE YOU FALLEN IN THE PAST 12 MONTHS? YES, SEVERAL TIMES. 2-3 TIMES IN SEP. HE JUST PASSED OUT AND HE ALSO FELL X2 DUE TO NM . ANY NEW EXTREMITY NUMBNESS OR WEAKNESS? YES, HANDS AND FINGER NUMBNESS AND STABBING PAIN THAT IS WORSE ALL. AT NIGHT-STARTED LAST 3 MONTHS. EXACERBATED PAIN IN LOWER BACK OVER THE LAST 3 MONTHS . CARDIOLOGY: DO YOU HAVE A PACEMAKER OR DEFIBRILLATOR? YES, ICD (PACEMAKER AND DEFIB) . RESPIRATORY: HAVE YOU BEEN SICK IN THE PAST WEEK? NO . FEVER NO . FLU LIKE SYMPTOMS? NO . COUGH NO . INTEGUMENTARY: DO YOU HAVE ANY RASHES OR OPEN SORES? NO . ALLERGIC/IMMUNO: ARE YOU ALLERGIC TO IV DYE? NO . ANY NEW ALLERGIES? NO . PSYCHIATRIC: DO YOU HAVE THOUGHTS OF HURTING YOURSELF OR SOMEONE ELSE? NO . ARE YOU ABUSED, NEGLECTED, OR IN AN UNSAFE ENVIRONMENT? NO . ENDOCRINOLOGY: ARE YOU DIABETIC? NO . OTHER: DO YOU NEED ANY PRESCRIPTIONS? YES . IF YES, PLEASE LIST: HYDROCODONE/ACETAMINOPHEN, TRAMADOL . ANY NEW PROBLEMS WITH YOUR MEDICATIONS? NO . WHEN DID YOU LAST EAT? ____ . WHEN DID YOU LAST DRINK? ____ . WHAT DID YOU LAST DRINK? ____ . NAME OF PERSON DRIVING YOU HOME? ____ . DO YOU HAVE ANY OTHER QUESTIONS OR CONCERNS YES - PAIN IS MUCH INCREASED DUE TO SUMMER ACTIVITIES AND DUTIES. THE CURRENT PAIN MEDS ARE NOT EFFECTIVE. . VITAL SIGNS WT 329.8 LBS, HT 72 IN, BMI 44.72 INDEX, BP 140/88 MM HG, HR 88 /MIN, RR 20 /MIN, TEMP 97.9 F, OXYGEN SAT % 98%, NA INITIALS SC 14:53, REVIEWED BY: SHERRON. EXAMINATION GENERAL EXAMINATION: PATIENT IS ALERT O X 3 AND COOPERATIVE. PRESENCE OF TRIGGER POINTS AND BANDS OF TISSUE WITH RESTRICTION OF MOVEMENT OF THE BACK. ASSESSMENTS MYALGIA, OTHER SITE - M79.18 (PRIMARY) NEUROPATHY - G62.9 TREATMENT MYALGIA, OTHER SITE CLINICAL NOTES: WE DISCUSSED SEVERAL ISSUES WITH MR. CARIAS'S PAIN MANAGEMENT CASE. DUE TO THE TRIGGER POINTS, BANDS OF TISSUE, AND RESTRICTION OF MOVEMENT, I WOULD LIKE TO MOVE FORWARD WITH A TRIGGER POINT INJECTION AT THIS TIME. WE DISCUSSED THE BENEFITS, RISKS, AND ALTERNATIVES OF THE INJECTION AND THE PATIENT WOULD LIKE TO PROCEED. I WOULD LIKE TO GET A CLEARANCE FROM THE PATIENT'S PRIMARY CARE TO HOLD PRADAXA FOR FUTURE INJECTIONS. I WILL INCREASE THE PATIENT'S NORCO TO 4 TABLETS PER DAY FOR 10 DAYS OUT OF THE MONTH AND I WILL INCREASE THE LYRICA TO 75MG TABLETS. ISTOP _#[id number] WAS REVIEWED. THE PATIENT WILL FOLLOW UP IN 1 MONTH. INSTRUCTIONS WERE GIVEN, QUESTIONS WERE ANSWERED, PATIENT REPORTS UNDERSTANDING AND AGREES WITH THE PLAN. I, NAHID BHATT, DOCUMENTED THE ABOVE INFORMATION ACTING A SCRIBE FOR DR. SMITH. I HAVE REVIEWED THE ABOVE DOCUMENT, WRITTEN BY NAHID ARANAIBKun AND I VERIFY THAT IT IS ACCURATE. . NEUROPATHY REFILL LYRICA CAPSULE, 75 MG, 1 CAPSULE, ORALLY, TWICE A DAY, 30 DAYS, 60 CAPSULE, REFILLS 0 REFILL NORCO TABLET, 10-325 MG, 1 TABLET NEEDED, ORALLY, EVERY 6 HRS MDD=4, 30 DAYS, 100, REFILLS 0 REFILL TRAMADOL HCL TABLET, 50 MG, 1 TAB, ORALLY, EVERY 6 HRS PRN PAIN MDD=4, 30 DAYS, 120, REFILLS 0 OTHERS NOTES: OPTIONS: TRIGGER POINT INJECTION MATERIAL WAS PRINTED. PROCEDURE CODES FA211 ESTABILISHED PATIENT [facility] CHARGE G8427 CURRENT MEDS W/DOSAGES DOCUMENTED G8730 PAIN ASSESS POS TOOL F/U PLAN DOC DISPOSITION & COMMUNICATION ELECTRONICALLY SIGNED BY MATI SMITH MD, MD ON 03/27/2019 AT 03:46 PM EDT DISCLAIMER : THIS IS A VISIT SUMMARY EXTRACTED FROM THE [employer] CHART. IT IS NOT A COPY OF THE [employer] PROGRESS NOTE. MTDD
== END ==
LOC: M PAIN 15:15
PROVIDERS: ATTEND Anesthesiology
DX: M79.18 Myalgia, other site (principal); G62.9 Polyneuropathy, unspecified; I11.0 Hypertensive heart disease with heart failure; E78.5 Hyperlipidemia, unspecified; M10.9 Gout, unspecified; I48.91 Unspecified atrial fibrillation; G47.33 Obstructive sleep apnea (adult) (pediatric); I50.9 Heart failure, unspecified; I25.2 Old myocardial infarction; I34.0 Nonrheumatic mitral (valve) insufficiency; G57.93 Unspecified mononeuropathy of bilateral lower limbs; Z79.01 Long term (current) use of anticoagulants; Z79.891 Long term (current) use of opiate analgesic; Z79.899 Other long term (current) drug therapy; Z87.891 Personal history of nicotine dependence; Z88.8 Allergy status to other drugs, medicaments and biological substances

== ENCOUNTER → 2019-03-26 | Outpatient (CLI) | payer OTHER ==
[~2019-03-26] MED LIST changes: +BUPIVACAINE HCL 0.25% 10 ML VIAL As Ordered ONE; +BUPIVACAINE HCL 0.25% 30 ML VIAL As Ordered ONE; +TRIAMCINOLONE ACETONIDE SUSP 40 MG/ML VIAL (J3301) As Ordered ONE; +diazePAM 5 MG TAB As Ordered ONE; +oxyCODONE 5MG TAB As Ordered ONE
--- NOTE | 2019-04-06 00:11 | ECWPNPC ---
PATIENT NAME: BUSHRA CARIAS : 1960 GENDER: MALE VISIT DATE: 03/26/2019 DISCHARGE DATE: 03/26/19 1642 VISIT LOCKED DATE TIME: PHYSICIAN: MATI SMITH MD PHYSICIAN PAGER NO: [phone] RESOURCE: MATI SMITH MD REASON FOR APPOINTMENT 1. LOW BACK TPI HISTORY OF PRESENT ILLNESS HISTORY OF PRESENT ILLNESS: PAIN THE PATIENT DESCRIBES THE PAIN... FALL RISK SCREENING: SCREENING :NO FALLS REPORTED IN THE LAST YEAR CURRENT MEDICATIONS TAKING FOLIC ACID 1 MG TABLET 1 TABLET ORALLY ONCE A DAY, NOTES: 03-26-19799 TAKING ALLOPURINOL 300 MG TABLET 1 TABLET ORALLY DAILY, NOTES: 03-26-19799 TAKING METOPROLOL TARTRATE 100 MG TABLET 1 TABLET ORALLY BID, NOTES: 03-26-19799 TAKING TORSEMIDE 10 MG TABLET 1 TABLET ORALLY BID, NOTES: 03-26-19799 TAKING PRADAXA 150 MG 1 TABLET TWICE A DAY, NOTES: 03-26-19799 TAKING NORCO 7.5-325 MG TABLET 1-2 TABLET NEEDED ORALLY EVERY 6 HRS MDD=6, NOTES: 03-26-19 51693 TAKING NORTRIPTYLINE HCL 25 MG CAPSULE 1 CAPSULE ORALLY TWICE A DAY, NOTES: 03-26-19799 TAKING LYRICA 50 MG CAPSULE 1 CAPSULE ORALLY FOR PAIN TWICE A DAY, NOTES: 03-26-19799 TAKING TRAMADOL HCL 50 MG TABLET 1-2 TAB ORALLY EVERY 6 HRS PRN PAIN MDD=4, NOTES: YESTERDAY TAKING DILTIAZEM HCL ER 240 MG CAPSULE EXTENDED RELEASE 24 HOUR 1 CAPSULE ON AN EMPTY STOMACH IN THE MORNING ORALLY ONCE A DAY, NOTES: 03-26-18 08 TAKING AMIODARONE HCL 200 MG TABLET 1 TABLET ORALLY ONCE A DAY, NOTES: 03-26-19799 TAKING RANOLAZINE ER 500 MG TABLET EXTENDED RELEASE 12 HOUR 1 TABLET ORALLY TWICE A DAY, NOTES: 03-26-19799 TAKING SPIRONOLACTONE 25 MG TABLET 1 TABLET ORALLY , NOTES: 03-26-19799 TAKING METOPROLOL SUCCINATE ER 200 MG TABLET EXTENDED RELEASE 24 HOUR 1/2 TABLET ORALLY TWICE DAILY, NOTES: 03-26-19 07 TAKING ROLLING WALKER 1 1 DIRECTED DX: G62.9 NOT-TAKING SLOW-MAG 400 TABLET DELAYED RELEASE 1 TABLET ORALLY DAILY NOT-TAKING NORTRIPTYLINE HCL 25 MG CAPSULE 1 CAPSULE ORALLY TWICE A DAY NOT-TAKING GABAPENTIN 300 MG CAPSULE 1 CAPSULE ORALLY FOR PAIN BEFORE BEDTIME NOT-TAKING GABAPENTIN 600 MG TABLET 1 CAPSULE ORALLY DAILY MEDICATION LIST REVIEWED AND RECONCILED WITH THE PATIENT PAST MEDICAL HISTORY HYPERTENSION HYPERLIPIDEMIA GOUT ATRIAL FIB MICH- USES BIPAP- FOLLOWS WITH PULMONARY NEUROPATHY BOTH FEET ENLARGED HEART MITRAL REGURGITATION CONGESTIVE HEART FAILURE [place] 09/2018 CARDIAC ABLASION 12/08/18 ALLERGIES LISINOPRIL: LIGHTHEADEDNESS - SIDE EFFECTS CYMBALTA: NAUSEA/VOMITING - SIDE EFFECTS SURGICAL HISTORY 4TH METACARPAL RIGHT HAND SURGERY, A CHILD 1979 WISDOM TEETH EXTRACT CYST REMOVAL- LEFT SHOULDER 08/2016 CARDIOVERSION X 5 [id number] HEART CATH-[facility] 04/12/18 INSERTION OF BI-VENTRICULAR ICD @[facility] 10/27/18 CARDIAC ABLASION 11/10/18 FAMILY HISTORY FATHER: 69 YRS, DIVERTICULITIS, ANEURYSM MOTHER: 83 YRS, CARDIAC DISEASE, DIAGNOSED WITH HEART DISEASE 3DAUGHTER(S) . SOCIAL HISTORY GENERAL: TOBACCO USE ARE YOU A:FORMER SMOKER HOW LONG HAS IT BEEN SINCE YOU LAST SMOKED?> 10 YEARS VAPORNO E-CIGARETTENO HIV / HEP-C SCREENING HIV TEST OFFERED TO PATIENT:YES DATE OFFERED:03/21/2019 TEST ACCEPTED:NO HEP-C TEST OFFERED TO PATIENT:YES DATE OFFERED:03/21/2019 REASON:PATIENT DECLINED TEST ACCEPTED:NO REASON:PATIENT DECLINED BROCHURE PROVIDED TO PATIENTNO OTHERS AT HOME: NONE. EDUCATION LEVEL OF EDUCATION:COLLEGE DIET: LOW FAT, LOW CHOLESTEROL, LOW SODIUM. LANGUAGE LANGUAGES SPOKEN:URDU NO DOMESTIC VIOLENCE DO YOU FEEL SAFE IN YOUR ENVIRONMENT?YES BMI CARE GOAL FOLLOW-UP ABOVE NORMAL BMI FOLLOW-UPDIETARY MANAGEMENT EDUCATION, GUIDANCE, AND COUNSELING RECREATIONAL DRUG USE DRUG USE?NO MARIJUANA IN PAST, NONE RECENTLY EXERCISE: NONE. LEARNING BARRIERS / SPECIAL NEEDS CHANGE FROM LAST VISIT?NO 03/19/19 BARRIERS TO LEARNING?NO HEARING IMPAIRED?NO VISION IMPAIRED?YES COGNITIVELY IMPAIRED?NO :CORRECTIVE LENSES READINESS TO LEARN?YES LEARNING PREFERENCES?NO LEARNING CAPABILITIES PRESENT?YES EMOTIONAL BARRIERS?NO SPECIAL DEVICES?YES :OTHER WALKING STICK, 4 WHEEL WALKER AT HOME COMMUNICATIONS PLANNER NEEDED?NO PAIN CLINIC PFS, CLERGY, PUBLIC HEALTH REFERRALS PFS REFERRAL NEEDED?NO CLERGY REFERRAL NEEDED?NO PUBLIC HEALTH REFERRAL NEEDED?NO WAS THE PROVIDER NOTIFIED OF ANY PERTINENT INFO? N/A HAS THE PATIENT BEEN EDUCATED REGARDING HIS/HER PLAN OF CARE?YES HAS THE PATIENT BEEN EDUCATED REGARDING PAIN, THE RISK FOR PAIN, THE IMPORTANCE OF EFFECTIVE PAIN MANAGEMENT, AND THE PAIN ASSESSMENT PROCESS?YES LATEX QUESTIONNAIRE LATEX ALLERGY : HAVE YOU EVER DEVELOPED ANY TYPE OF REACTION AFTER HANDLING LATEX PRODUCTS SUCH RUBBER GLOVES, CONDOMS, DIAPHRAGMS, BALLOONS, SOCKS, OR UNDERWEAR?NO LATEX ALLERGY : HAVE YOU EVER DEVELOPED ANY TYPE OF REACTION DURING OR AFTER DENTAL APPOINTMENT, VAGINAL/RECTAL EXAMINATION, SURGICAL PROCEDURE, OR ANY OTHER EXPOSURE?NO DATE ASKED : 03/19/2019 LATEX RISK : HAVE YOU EVER HAD ANY DIFFICULTY BREATHING OR HIVES AFTER EATING OR HANDLING ANY FRUITS, OR VEGETABLES; SUCH KIWI, BANANAS, STONE FRUITS, OR CHESTNUTSNO LATEX RISK : DO YOU HAVE A PREVIOUS PERSONAL HISTORY OF MORE THAN NINE SURGERIES, SPINA BIFIDA, OR REPEATED CATHERTIZATIONS? NO LATEX RISK : ARE YOU FREQUENTLY EXPOSED TO LATEX PRODUCTS IN YOUR OCCUPATION?NO NO CAFFEINE CAFFEINE USE?NO ADVANCE DIRECTIVE ADVANCE DIRECTIVE DISCUSSED WITH PATIENT:YES 03/21/19 PT STATES HE DOES NOT HAVE ANY ADVANCE DIRECTIVES AND HE DECLINES INFORMATION ON HCP AT THIS TIME. AD EPISCOPALIAN [id number] LATTER DAY MARITAL STATUS: .. 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 SEXUAL HX HAD SEX IN THE LAST 12 MONTHS (VAGINAL, ORAL, OR ANAL)?NO HAVE YOU EVER HAD AN STD?NO REVIEWED WITH PT 12/11/18 1320 BV. HOSPITALIZATION/MAJOR DIAGNOSTIC PROCEDURE MULTIPLE HOSPITALIZATIONS FOR HIS HEART [facility] ATTACK/PLACEMENT OF ICD 10/23/2018-10/30/2018 REVIEW OF SYSTEMS REVIEWED BY: PROVIDER: . CONSTITUTIONAL: ANY CHANGE IN YOUR MEDICAL CONDITION? NO . CHILLS NO . FEVER NO . INFECTION: DO YOU HAVE NEW INFECTIONS? NO . DO YOU HAVE HISTORY OF MRSA? NO . MUSCULOSKELETAL: ANY NEW PATTERNS OF PAIN OR NUMBNESS? YES BOTH FINGERS HAVE INCREASE IN [place] . GASTROENTEROLOGY: ANY NEW CHANGE IN BOWEL CONTROL? NO . GENITOURINARY: ANY NEW CHANGE IN BLADDER CONTROL? NO . IS THERE A CHANCE YOU COULD BE ? NO . HEMATOLOGY/LYMPH: DO YOU TAKE ANY BLOOD THINNERS? (FOR EXAMPLE- COUMADIN, PLAVIX, AGGRENOX, PLATEL, PRADAXA, OR XARELTO) YES PERDZXA . WHEN WAS YOUR LAST DOSE? DATE: TIME: . NEUROLOGY: ANY NEW EXTREMITY NUMBNESS OR WEAKNESS? NO . CARDIOLOGY: DO YOU HAVE A PACEMAKER OR DEFIBRILLATOR? DEFIBULATOR/PACER PLACED IN OCTOBER . RESPIRATORY: HAVE YOU BEEN SICK IN THE PAST WEEK? NO . FEVER NO . FLU LIKE SYMPTOMS? NO . COUGH NO . INTEGUMENTARY: DO YOU HAVE ANY RASHES OR OPEN SORES? NO . ALLERGIC/IMMUNO: ARE YOU ALLERGIC TO IV DYE? NO . ANY NEW ALLERGIES? NO . PSYCHIATRIC: DO YOU HAVE THOUGHTS OF HURTING YOURSELF OR SOMEONE ELSE? NO . ARE YOU ABUSED, NEGLECTED, OR IN AN UNSAFE ENVIRONMENT? NO . ENDOCRINOLOGY: ARE YOU DIABETIC? NO . OTHER: DO YOU NEED ANY PRESCRIPTIONS? NO . IF YES, PLEASE LIST: ____ . ANY NEW PROBLEMS WITH YOUR MEDICATIONS? NO . WHEN DID YOU LAST EAT? ____YESTERDAY 8 PM . WHEN DID YOU LAST DRINK? ____TODAY 11 AM . WHAT DID YOU LAST DRINK? ____WATER . NAME OF PERSON DRIVING YOU HOME? ____DANII MARIA TERESA -- . DO YOU HAVE ANY OTHER QUESTIONS OR CONCERNS NO . VITAL SIGNS WT 329.6 LBS, HT 72 IN, BMI 44.70 INDEX, BP 168/90 MM HG, HR 95 /MIN, RR 20 /MIN, TEMP 98.8 F, OXYGEN SAT % 97%, NA INITIALS SC 14:48, REVIEWED BY: KG. ASSESSMENTS MYALGIA, OTHER SITE - M79.18 (PRIMARY) PROCEDURES PN TRIGGER POINT INJECTION WITH STEROIDS PRE PROCEDURE DIAGNOSIS 1. MYALGIA 2. PAIN AT BILATERAL LOW BACK AREA. POST PROCEDURE DIAGNOSIS 1. MYALGIA 2. PAIN AT BILATERAL LOW BACK AREA. PROCEDURE TRIGGER POINT INJECTION AT RIGHT AND LEFT LOW BACK AREA. SURGEON DR. MATI SMITH NETWORK SECURITY ARCHITECT NONE ANESTHESIA LOCAL PRE PROCEDURE NOTE THE PATIENT HAS A HISTORY OF CHRONIC PAIN AT THE RIGHT AND LEFT LOWER BACK AREA. I EVALUATED THE PATIENT AND REVIEWED THE CHART. THERE IS EVIDENCE OF BANDS OF TISSUE WITH RESTRICTION OF MOVEMENT AND PRESENCE OF TRIGGER POINT AT THE AFFECTED AREA. I WENT OVER THE RISKS, ALTERNATIVES, AND BENEFITS ASSOCIATED WITH THIS PROCEDURE. THE PATIENT WOULD LIKE TO PROCEED AND GIVE CONSENT TO PERFORMED THE PROCEDURE. THE PATIENT DENIES UNEXPLAINABLE WEIGHT LOSS, FEVER, CHILLS, OR NEW CHANGES IN URINARY OR BOWEL CONTROL DESCRIPTION OF PROCEDURE THE PATIENT WAS BROUGHT TO THE PROCEDURE ROOM AND PLACED IN THE SITTING POSITION. THE AREA WAS CLEANED WITH ALCOHOL. THE PROCEDURE WAS DONE USING ASEPTIC STERILE TECHNIQUE. I CHECKED LATERALITY AND THE LEVEL WHERE THE PROCEDURE WAS GOING TO BE PERFORMED WITH THE PATIENT AND THE SUPPORTING STAFF AT THE MOMENT OF THE TIME OUT IN THE PROCEDURE ROOM. USING A 25-GAUGE NEEDLE, TRIGGER POINTS WERE INJECTED AT THE RIGHT AND LEFT LOWER BACK AREA WITH A TOTAL OF 40 ML OF BUPIVACAINE 0.25% AND KENALOG 40 MG. THERE WAS NO EVIDENCE OF BLOOD, PARESTHESIA OR CEREBROSPINAL FLUID DURING THE PROCEDURE. THE PATIENT WAS SENT TO THE RECOVERY ROOM. THE PATIENT WAS MOVING THE EXTREMITIES AND DOING WELL. THERE WAS NO COMPLICATION DURING THE PROCEDURE POST PROCEDURE NOTE THE PATIENT WILL BE SEEN IN A FOLLOW UP IN THE NEXT FEW WEEKS. INSTRUCTIONS WERE GIVEN, QUESTIONS WERE ANSWERED, AND THE PATIENT EXPRESSED UNDERSTANDING AND AGREES WITH THE PLAN. I, DARRIN LUNA, DOCUMENTED THE ABOVE INFORMATION ACTING A SCRIBE FOR DR. SMITH. I HAVE REVIEWED THE ABOVE DOCUMENT, WRITTEN BY DARRIN LUNA SCRIBKun AND I VERIFY THAT IT IS ACCURATE. PROCEDURE CODES 15792 INJ TRIGGER POINT / [employer] [facility] [employer] DISPOSITION & COMMUNICATION FOLLOW UP 3 WEEKS ELECTRONICALLY SIGNED BY MATI SMITH MD, MD ON 04/05/2019 AT 01:43 PM EDT DISCLAIMER : THIS IS A VISIT SUMMARY EXTRACTED FROM THE Consulted CHART. IT IS NOT A COPY OF THE Consulted PROGRESS NOTE. ALISHA
== END ==
LOC: M PAIN 15:00
PROVIDERS: ATTEND Anesthesiology
DX: M79.18 Myalgia, other site (principal); I11.0 Hypertensive heart disease with heart failure; E78.5 Hyperlipidemia, unspecified; M10.9 Gout, unspecified; I48.91 Unspecified atrial fibrillation; G47.33 Obstructive sleep apnea (adult) (pediatric); I34.0 Nonrheumatic mitral (valve) insufficiency; I50.9 Heart failure, unspecified; I25.2 Old myocardial infarction; G57.93 Unspecified mononeuropathy of bilateral lower limbs; Z87.891 Personal history of nicotine dependence; Z79.01 Long term (current) use of anticoagulants; Z79.891 Long term (current) use of opiate analgesic; Z79.899 Other long term (current) drug therapy; Z88.8 Allergy status to other drugs, medicaments and biological substances
CPT/HCPCS: 20552; J3301

== ENCOUNTER → 2019-05-17 | Outpatient (CLI) | payer OTHER ==
[~2019-05-17] MED LIST changes: -BUPIVACAINE HCL 0.25% 10 ML VIAL As Ordered ONE; -BUPIVACAINE HCL 0.25% 30 ML VIAL As Ordered ONE; -SIMV20TA2 PO; +SIMV20TA22 PO; -TRIAMCINOLONE ACETONIDE SUSP 40 MG/ML VIAL (J3301) As Ordered ONE; -diazePAM 5 MG TAB As Ordered ONE; -oxyCODONE 5MG TAB As Ordered ONE
--- NOTE | 2019-05-22 23:39 | ECWPNPC ---
PATIENT NAME: BUSHRA CARIAS : 1960 GENDER: MALE VISIT DATE: 05/17/2019 DISCHARGE DATE: 05/17/19 1501 VISIT LOCKED DATE TIME: PHYSICIAN: DANII CARIAS PHYSICIAN PAGER NO: [phone] RESOURCE: DANII CARIAS REASON FOR APPOINTMENT 1. POST TPI HISTORY OF PRESENT ILLNESS HISTORY OF PRESENT ILLNESS: PAIN THE PATIENT DESCRIBES THE PAIN... 59 YEAR OLD MALE IN FOR POST TPI FOLLOW UP. HE FEELS THE PROCEDURE WORKED FOR ABOUT 4 DAYS. HE RATES HIS PAIN AT A 7/10 CURRENTLY AND DESCRIBES IT SHARP, BURNING, AND STABBING. FALL RISK SCREENING: SCREENING :NO FALLS REPORTED IN THE LAST YEAR CURRENT MEDICATIONS TAKING ALLOPURINOL 300 MG TABLET 1 TABLET ORALLY DAILY TAKING TORSEMIDE 10 MG TABLET 1 TABLET ORALLY BID TAKING PRADAXA 150 MG 1 TABLET TWICE A DAY TAKING DILTIAZEM HCL ER 240 MG CAPSULE EXTENDED RELEASE 24 HOUR 1 CAPSULE ON AN EMPTY STOMACH IN THE MORNING ORALLY ONCE A DAY TAKING AMIODARONE HCL 200 MG TABLET 1 TABLET ORALLY ONCE A DAY TAKING RANOLAZINE ER 500 MG TABLET EXTENDED RELEASE 12 HOUR 1 TABLET ORALLY TWICE A DAY TAKING SPIRONOLACTONE 25 MG TABLET 1 TABLET ORALLY TAKING METOPROLOL SUCCINATE ER 200 MG TABLET EXTENDED RELEASE 24 HOUR 1/2 TABLET ORALLY TWICE DAILY TAKING ROLLING WALKER 1 1 DIRECTED DX: G62.9 TAKING FOLIC ACID 1 MG TABLET 1 TABLET ORALLY ONCE A DAY TAKING NORTRIPTYLINE HCL 25 MG CAPSULE 1 CAPSULE ORALLY TWICE A DAY TAKING NORCO 10-325 MG TABLET 1 TABLET NEEDED ORALLY EVERY 6 HRS MDD=4 TAKING LYRICA 75 MG CAPSULE 1 CAPSULE ORALLY TWICE A DAY TAKING TRAMADOL HCL 50 MG TABLET 1-2 TAB ORALLY EVERY 6 HRS PRN PAIN MDD=4 NOT-TAKING METOPROLOL TARTRATE 100 MG TABLET 1 TABLET ORALLY BID NOT-TAKING SLOW-MAG 400 TABLET DELAYED RELEASE 1 TABLET ORALLY DAILY NOT-TAKING GABAPENTIN 300 MG CAPSULE 1 CAPSULE ORALLY FOR PAIN BEFORE BEDTIME NOT-TAKING GABAPENTIN 600 MG TABLET 1 CAPSULE ORALLY DAILY MEDICATION LIST REVIEWED AND RECONCILED WITH THE PATIENT PAST MEDICAL HISTORY HYPERTENSION HYPERLIPIDEMIA GOUT ATRIAL FIB MICH- USES BIPAP- FOLLOWS WITH PULMONARY NEUROPATHY BOTH FEET ENLARGED HEART MITRAL REGURGITATION CONGESTIVE HEART FAILURE [place] 09/2018 CARDIAC ABLASION 12/08/18 PACEMAKER/DEBRIBFRILATOR 10/26/18 ALLERGIES LISINOPRIL: LIGHTHEADEDNESS - SIDE EFFECTS CYMBALTA: NAUSEA/VOMITING - SIDE EFFECTS SURGICAL HISTORY 4TH METACARPAL RIGHT HAND SURGERY, A CHILD 1979 WISDOM TEETH EXTRACT CYST REMOVAL- LEFT SHOULDER 08/2016 CARDIOVERSION X 5 [id number] [facility]ART [facility]ATH-[facility] 04/12/18 INSERTION OF BI-VENTRICULAR ICD @[facility] (PACER/DEFIBRILLATOR) 10/27/18 CARDIAC ABLASION 11/10/18 FAMILY HISTORY FATHER: 69 YRS, DIVERTICULITIS, ANEURYSM MOTHER: 83 YRS, CARDIAC DISEASE, DIAGNOSED WITH HEART DISEASE 3DAUGHTER(S) . SOCIAL HISTORY GENERAL: TOBACCO USE ARE YOU A:FORMER SMOKER HOW LONG HAS IT BEEN SINCE YOU LAST SMOKED?> 10 YEARS VAPORNO E-CIGARETTENO HIV / HEP-C SCREENING HIV TEST OFFERED TO PATIENT:YES DATE OFFERED:03/21/2019 TEST ACCEPTED:NO HEP-C TEST OFFERED TO PATIENT:YES DATE OFFERED:03/21/2019 REASON:PATIENT DECLINED TEST ACCEPTED:NO REASON:PATIENT DECLINED BROCHURE PROVIDED TO PATIENTNO OTHERS AT HOME: NONE. EDUCATION LEVEL OF EDUCATION:COLLEGE DIET: LOW FAT, LOW CHOLESTEROL, LOW SODIUM. LANGUAGE LANGUAGES SPOKEN:BARBADIAN NO DOMESTIC VIOLENCE DO YOU FEEL SAFE IN YOUR ENVIRONMENT?YES BMI CARE GOAL FOLLOW-UP ABOVE NORMAL BMI FOLLOW-UPDIETARY MANAGEMENT EDUCATION, GUIDANCE, AND COUNSELING RECREATIONAL DRUG USE DRUG USE?NO MARIJUANA IN PAST, NONE RECENTLY EXERCISE: NONE. LEARNING BARRIERS / SPECIAL NEEDS CHANGE FROM LAST VISIT?NO 03/19/19 BARRIERS TO LEARNING?NO HEARING IMPAIRED?NO VISION IMPAIRED?YES COGNITIVELY IMPAIRED?NO :CORRECTIVE LENSES READINESS TO LEARN?YES LEARNING PREFERENCES?NO LEARNING CAPABILITIES PRESENT?YES EMOTIONAL BARRIERS?NO SPECIAL DEVICES?YES :OTHER WALKING STICK, 4 WHEEL WALKER AT HOME FREQUENCY CHECKER NEEDED?NO PAIN CLINIC PFS, CLERGY, PUBLIC HEALTH REFERRALS PFS REFERRAL NEEDED?NO CLERGY REFERRAL NEEDED?NO PUBLIC HEALTH REFERRAL NEEDED?NO WAS THE PROVIDER NOTIFIED OF ANY PERTINENT INFO? N/A HAS THE PATIENT BEEN EDUCATED REGARDING HIS/HER PLAN OF CARE?YES HAS THE PATIENT BEEN EDUCATED REGARDING PAIN, THE RISK FOR PAIN, THE IMPORTANCE OF EFFECTIVE PAIN MANAGEMENT, AND THE PAIN ASSESSMENT PROCESS?YES LATEX QUESTIONNAIRE LATEX ALLERGY : HAVE YOU EVER DEVELOPED ANY TYPE OF REACTION AFTER HANDLING LATEX PRODUCTS SUCH RUBBER GLOVES, CONDOMS, DIAPHRAGMS, BALLOONS, SOCKS, OR UNDERWEAR?NO LATEX ALLERGY : HAVE YOU EVER DEVELOPED ANY TYPE OF REACTION DURING OR AFTER DENTAL APPOINTMENT, VAGINAL/RECTAL EXAMINATION, SURGICAL PROCEDURE, OR ANY OTHER EXPOSURE?NO DATE ASKED : 03/19/2019 LATEX RISK : HAVE YOU EVER HAD ANY DIFFICULTY BREATHING OR HIVES AFTER EATING OR HANDLING ANY FRUITS, OR VEGETABLES; SUCH KIWI, BANANAS, STONE FRUITS, OR CHESTNUTSNO LATEX RISK : DO YOU HAVE A PREVIOUS PERSONAL HISTORY OF MORE THAN NINE SURGERIES, SPINA BIFIDA, OR REPEATED CATHERIZATIONS? NO LATEX RISK : ARE YOU FREQUENTLY EXPOSED TO LATEX PRODUCTS IN YOUR OCCUPATION?NO NO CAFFEINE CAFFEINE USE?NO ADVANCE DIRECTIVE ADVANCE DIRECTIVE DISCUSSED WITH PATIENT:YES 03/21/19 PT STATES HE DOES NOT HAVE ANY ADVANCE DIRECTIVES AND HE DECLINES INFORMATION ON HCP AT THIS TIME. AD RESTORATIONIST [id number] TEMPLE MARITAL STATUS: .. 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 SEXUAL HX HAD SEX IN THE LAST 12 MONTHS (VAGINAL, ORAL, OR ANAL)?NO HAVE YOU EVER HAD AN STD?NO REVIEWED WITH PT 12/11/18 1320 BVREVIEWED WITH PATIENT 05/17/19 1419 NLJ. HOSPITALIZATION/MAJOR DIAGNOSTIC PROCEDURE MULTIPLE HOSPITALIZATIONS FOR HIS HEART [facility] ATTACK/PLACEMENT OF ICD 10/23/2018-10/30/2018 REVIEW OF SYSTEMS REVIEWED BY: PROVIDER: DARCIE DOLAN . CONSTITUTIONAL: ANY CHANGE IN YOUR MEDICAL CONDITION? NO . CHILLS NO . FEVER NO . INFECTION: DO YOU HAVE NEW INFECTIONS? NO . DO YOU HAVE HISTORY OF MRSA? NO . MUSCULOSKELETAL: ANY NEW PATTERNS OF PAIN OR NUMBNESS? YES- BILATERAL FEET AND LEGS FROM NEUROPATHY WELL BIALTERAL HANDS, STATES TPI IN LOWER BACK WORKED ABOUT 4 DAYS ONLY, STATES HIS BAD IS AT LEAST BACK TO PRE PROCEDURE LEVEL AN IS GETTING WORSE OVER TIME . GASTROENTEROLOGY: ANY NEW CHANGE IN BOWEL CONTROL? NO . GENITOURINARY: ANY NEW CHANGE IN BLADDER CONTROL? NO . IS THERE A CHANCE YOU COULD BE ? NO . HEMATOLOGY/LYMPH: DO YOU TAKE ANY BLOOD THINNERS? (FOR EXAMPLE- COUMADIN, PLAVIX, AGGRENOX, PLATEL, PRADAXA, OR XARELTO) YES- PRADAXA . WHEN WAS YOUR LAST DOSE? DATE: 05/17/19TIME: 1000 AM . NEUROLOGY: HAVE YOU FALLEN IN THE PAST 12 MONTHS? NO . ANY NEW EXTREMITY NUMBNESS OR WEAKNESS? YES- HANDS AND FEET, RELATE TO NEUROPATHY NOT BACK (SEES DR. NUÑEZ) . CARDIOLOGY: DO YOU HAVE A PACEMAKER OR DEFIBRILLATOR? NO . RESPIRATORY: HAVE YOU BEEN SICK IN THE PAST WEEK? NO . FEVER NO . FLU LIKE SYMPTOMS? NO . COUGH NO . INTEGUMENTARY: DO YOU HAVE ANY RASHES OR OPEN SORES? NO . ALLERGIC/IMMUNO: ARE YOU ALLERGIC TO IV DYE? NO . ANY NEW ALLERGIES? NO . PSYCHIATRIC: DO YOU HAVE THOUGHTS OF HURTING YOURSELF OR SOMEONE ELSE? NO . ARE YOU ABUSED, NEGLECTED, OR IN AN UNSAFE ENVIRONMENT? NO . ENDOCRINOLOGY: ARE YOU DIABETIC? NO . OTHER: DO YOU NEED ANY PRESCRIPTIONS? NO . IF YES, PLEASE LIST: ____ . ANY NEW PROBLEMS WITH YOUR MEDICATIONS? NO . WHEN DID YOU LAST EAT? ____ . WHEN DID YOU LAST DRINK? ____ . WHAT DID YOU LAST DRINK? ____ . NAME OF PERSON DRIVING YOU HOME? ____ . DO YOU HAVE ANY OTHER QUESTIONS OR CONCERNS YES- LYRICA, PATIENT STATES HE NEEDS ACTUAL LYRICA AND NOT THE GENERIC, WOULD LIKE TO TRY MEDICAL MARIJUANA- STATES HE HAS TALKED TO DR. SMITH PREVIOUSLY ABOUT IT . VITAL SIGNS WT 335.4 LBS, HT 72 IN, BMI 45.48 INDEX, BP 142/79 MM HG, HR 91 /MIN, RR 20 /MIN, TEMP 96.3 F, OXYGEN SAT % 95%, SAFE IN ENV? (Y/N) YES, NA INITIALS SC 14:19, REVIEWED BY: WINSTON. EXAMINATION GENERAL EXAMINATION: GENERALNO ACUTE DISTRESS, WELL NOURISHED AND HYDRATED. PSYCHAPPROPRIATE MOOD AND AFFECT . LUNGS:CLEAR TO AUSCULTATION BILATERALLY, NO WHEEZES, RHONCHI, RALES. HEART:NO MURMURS, REGULAR RATE AND RHYTHM. ASSESSMENTS INTERVERTEBRAL DISC DISORDER WITH RADICULOPATHY OF LUMBAR REGION - M51.16 (PRIMARY) TREATMENT INTERVERTEBRAL DISC DISORDER WITH RADICULOPATHY OF LUMBAR REGION CLINICAL NOTES: 59 YEAR OLD MALE IN FOR POST TPI FOLLOW UP. WE DISCUSSED REPEAT TPI WHICH WAS DECLINED AT THIS TIME. WE ALSO DISCUSSED THE POSSIBILITY OF INCREASING HIS LYRICA AND THE PATIENT WAS INFORMED THIS SUPPORT SERVICES REP WOULD DISCUSS THIS WITH DR. SMITH PRIOR TO INCREASING DOSAGE. GIVEN PRESENTING SYMPTOMS AND RESULTS OF PHYSICAL EXAMINATION RECOMMENDED FOLLOW UP IN 2 MONTHS AND POTENTIAL INCREASE IN LYRICA. , PATIENT HAS EXPRESSED UNDERSTANDING OF AND WAS IN AGREEMENT WITH TREATMENT PLAN. GIVEN TIME TO ASK QUESTIONS AND EXPRESS CONCERNS. , ISTOP REGISTRY REVIEWED AND DEMONSTRATES COMPLLIANCE. (REF #[id number] ) BRINGS IN MEDICATIONS WHICH IS APPROPRIATE FOR WHAT WAS DISPENSED. RECENT URINE TOXICOLOGY REVIEWED. NO UNAUTHORIZED MEDICATIONS. NO ILLICIT SUBSTANCES AND PRESCRIBED MEDICATIONS WERE PRESENT. PROCEDURE CODES FA211 ESTABILISHED PATIENT [facility] FACILITY CHARGE DISPOSITION & COMMUNICATION FOLLOW UP 4 WEEKS (REASON: MED INCREASE) ELECTRONICALLY SIGNED BY RYLEE OROURKE ON 05/22/2019 AT 09:29 AM EDT DISCLAIMER : THIS IS A VISIT SUMMARY EXTRACTED FROM THE [employer] CHART. IT IS NOT A COPY OF THE [employer] PROGRESS NOTE. ALISHA
== END ==
LOC: M PAIN 14:15
PROVIDERS: ATTEND Family Medicine
DX: M51.16 Intervertebral disc disorders with radiculopathy, lumbar region (principal); I10 Essential (primary) hypertension; E78.00 Pure hypercholesterolemia, unspecified; G47.33 Obstructive sleep apnea (adult) (pediatric); G62.9 Polyneuropathy, unspecified; I25.2 Old myocardial infarction; Z95.0 Presence of cardiac pacemaker; Z87.891 Personal history of nicotine dependence; Z88.8 Allergy status to other drugs, medicaments and biological substances; Z79.01 Long term (current) use of anticoagulants; E66.01 Morbid (severe) obesity due to excess calories; Z68.42 Body mass index [BMI] 45.0-49.9, adult; Z79.891 Long term (current) use of opiate analgesic; Z79.899 Other long term (current) drug therapy

== ENCOUNTER → 2019-06-13 | Outpatient (CLI) | payer OTHER ==
--- NOTE | 2019-06-15 01:24 | ECWPNPC ---
PATIENT NAME: BUSHRA CARIAS : 1960 GENDER: MALE VISIT DATE: 06/13/2019 DISCHARGE DATE: 06/13/19 1444 VISIT LOCKED DATE TIME: PHYSICIAN: DANII CARIAS PHYSICIAN PAGER NO: [phone] RESOURCE: DANII CARIAS REASON FOR APPOINTMENT 1. MED INCREASE HISTORY OF PRESENT ILLNESS HISTORY OF PRESENT ILLNESS: PAIN THE PATIENT DESCRIBES THE PAIN... 59-YEAR-OLD MALE IN FOR CHRONIC PAIN FOLLOW-UP. AT LAST VISIT HIS LYRICA WAS INCREASED AND HE REPORTS TODAY THAT IT WAS INEFFECTIVE. HE RATES HIS PAIN CURRENTLY AT A 7-8 OUT OF 10 AND DESCRIBES IT SHARP, STABBING, AND SHOOTING. HE DOES ADMIT TO NEW NEUROPATHIC PAIN IN HIS HANDS AND HE FURTHER STATES HE HAS AN UPCOMING APPOINTMENT WITH NEUROLOGY HE IS SEEN BY THEM FOR THIS. FALL RISK SCREENING: SCREENING :NO FALLS REPORTED IN THE LAST YEAR CURRENT MEDICATIONS TAKING ALLOPURINOL 300 MG TABLET 1 TABLET ORALLY DAILY TAKING TORSEMIDE 10 MG TABLET 1 TABLET ORALLY BID TAKING PRADAXA 150 MG 1 TABLET TWICE A DAY TAKING DILTIAZEM HCL ER 240 MG CAPSULE EXTENDED RELEASE 24 HOUR 1 CAPSULE ON AN EMPTY STOMACH IN THE MORNING ORALLY ONCE A DAY TAKING RANOLAZINE ER 500 MG TABLET EXTENDED RELEASE 12 HOUR 1 TABLET ORALLY TWICE A DAY TAKING SPIRONOLACTONE 25 MG TABLET 1 TABLET ORALLY TAKING METOPROLOL SUCCINATE ER 200 MG TABLET EXTENDED RELEASE 24 HOUR 1/2 TABLET ORALLY TWICE DAILY TAKING ROLLING WALKER 1 1 DIRECTED DX: G62.9 TAKING FOLIC ACID 1 MG TABLET 1 TABLET ORALLY ONCE A DAY TAKING NORTRIPTYLINE HCL 25 MG CAPSULE 1 CAPSULE ORALLY TWICE A DAY TAKING LYRICA 100 MG CAPSULE 1 CAPSULE ORALLY TWICE A DAY TAKING NORCO 10-325 MG TABLET 1 TABLET NEEDED ORALLY EVERY 6 HRS MDD=4 TAKING TRAMADOL HCL 50 MG TABLET 1-2 TAB ORALLY EVERY 6 HRS PRN PAIN MDD=4 NOT-TAKING AMIODARONE HCL 200 MG TABLET 1 TABLET ORALLY ONCE A DAY NOT-TAKING METOPROLOL TARTRATE 100 MG TABLET 1 TABLET ORALLY BID NOT-TAKING SLOW-MAG 400 TABLET DELAYED RELEASE 1 TABLET ORALLY DAILY NOT-TAKING GABAPENTIN 300 MG CAPSULE 1 CAPSULE ORALLY FOR PAIN BEFORE BEDTIME NOT-TAKING GABAPENTIN 600 MG TABLET 1 CAPSULE ORALLY DAILY MEDICATION LIST REVIEWED AND RECONCILED WITH THE PATIENT PAST MEDICAL HISTORY HYPERTENSION HYPERLIPIDEMIA GOUT ATRIAL FIB MICH- USES BIPAP- FOLLOWS WITH PULMONARY NEUROPATHY BOTH FEET ENLARGED HEART MITRAL REGURGITATION CONGESTIVE HEART FAILURE [place] 09/2018 CARDIAC ABLASION 12/08/18 PACEMAKER/DEBRIBFRILATOR 10/26/18 ALLERGIES LISINOPRIL: LIGHTHEADEDNESS - SIDE EFFECTS CYMBALTA: NAUSEA/VOMITING - SIDE EFFECTS SURGICAL HISTORY 4TH METACARPAL RIGHT HAND SURGERY, A CHILD 1979 WISDOM TEETH EXTRACT CYST REMOVAL- LEFT SHOULDER 08/2016 CARDIOVERSION X 5 [id number] HEART CATH-[facility] 04/12/18 INSERTION OF BI-VENTRICULAR ICD @[facility] (PACER/DEFIBRILLATOR) 10/27/18 CARDIAC ABLASION 11/10/18 FAMILY HISTORY FATHER: 69 YRS, DIVERTICULITIS, ANEURYSM MOTHER: 83 YRS, CARDIAC DISEASE, DIAGNOSED WITH UNSPECIFIED HEART DISEASE 3DAUGHTER(S) . SOCIAL HISTORY GENERAL: TOBACCO USE ARE YOU A:FORMER SMOKER HOW LONG HAS IT BEEN SINCE YOU LAST SMOKED?> 10 YEARS VAPORNO E-CIGARETTENO HIV / HEP-C SCREENING HIV TEST OFFERED TO PATIENT:YES DATE OFFERED:03/21/2019 TEST ACCEPTED:NO HEP-C TEST OFFERED TO PATIENT:YES DATE OFFERED:03/21/2019 REASON:PATIENT DECLINED TEST ACCEPTED:NO REASON:PATIENT DECLINED BROCHURE PROVIDED TO PATIENTNO OTHERS AT HOME: NONE. EDUCATION LEVEL OF EDUCATION:COLLEGE DIET: LOW FAT, LOW CHOLESTEROL, LOW SODIUM. LANGUAGE LANGUAGES SPOKEN:ARABIC NO DOMESTIC VIOLENCE DO YOU FEEL SAFE IN YOUR ENVIRONMENT?YES BMI CARE GOAL FOLLOW-UP ABOVE NORMAL BMI FOLLOW-UPDIETARY MANAGEMENT EDUCATION, GUIDANCE, AND COUNSELING RECREATIONAL DRUG USE DRUG USE?NO MARIJUANA IN PAST, NONE RECENTLY EXERCISE: NONE. LEARNING BARRIERS / SPECIAL NEEDS CHANGE FROM LAST VISIT?NO 03/19/19 BARRIERS TO LEARNING?NO HEARING IMPAIRED?NO VISION IMPAIRED?YES COGNITIVELY IMPAIRED?NO :CORRECTIVE LENSES READINESS TO LEARN?YES LEARNING PREFERENCES?NO LEARNING CAPABILITIES PRESENT?YES EMOTIONAL BARRIERS?NO SPECIAL DEVICES?YES :OTHER WALKING STICK, 4 WHEEL WALKER AT HOME RETIREMENT MANAGER NEEDED?NO PAIN CLINIC PFS, CLERGY, PUBLIC HEALTH REFERRALS PFS REFERRAL NEEDED?NO CLERGY REFERRAL NEEDED?NO PUBLIC HEALTH REFERRAL NEEDED?NO WAS THE PROVIDER NOTIFIED OF ANY PERTINENT INFO? N/A HAS THE PATIENT BEEN EDUCATED REGARDING HIS/HER PLAN OF CARE?YES HAS THE PATIENT BEEN EDUCATED REGARDING PAIN, THE RISK FOR PAIN, THE IMPORTANCE OF EFFECTIVE PAIN MANAGEMENT, AND THE PAIN ASSESSMENT PROCESS?YES LATEX QUESTIONNAIRE LATEX ALLERGY : HAVE YOU EVER DEVELOPED ANY TYPE OF REACTION AFTER HANDLING LATEX PRODUCTS SUCH RUBBER GLOVES, CONDOMS, DIAPHRAGMS, BALLOONS, SOCKS, OR UNDERWEAR?NO LATEX ALLERGY : HAVE YOU EVER DEVELOPED ANY TYPE OF REACTION DURING OR AFTER DENTAL APPOINTMENT, VAGINAL/RECTAL EXAMINATION, SURGICAL PROCEDURE, OR ANY OTHER EXPOSURE?NO DATE ASKED : 03/19/2019 LATEX RISK : HAVE YOU EVER HAD ANY DIFFICULTY BREATHING OR HIVES AFTER EATING OR HANDLING ANY FRUITS, OR VEGETABLES; SUCH KIWI, BANANAS, STONE FRUITS, OR CHESTNUTSNO LATEX RISK : DO YOU HAVE A PREVIOUS PERSONAL HISTORY OF MORE THAN NINE SURGERIES, SPINA BIFIDA, OR REPEATED CATHERIZATIONS? NO LATEX RISK : ARE YOU FREQUENTLY EXPOSED TO LATEX PRODUCTS IN YOUR OCCUPATION?NO NO CAFFEINE CAFFEINE USE?NO ADVANCE DIRECTIVE ADVANCE DIRECTIVE DISCUSSED WITH PATIENT:YES PT STATES HE DOES NOT HAVE ANY ADVANCE DIRECTIVES AND HE DECLINES INFORMATION ON HCP AT THIS TIME. ORTHODOX [id number] SCIENTOLOGY MARITAL STATUS: .. 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 SEXUAL HX HAD SEX IN THE LAST 12 MONTHS (VAGINAL, ORAL, OR ANAL)?NO HAVE YOU EVER HAD AN STD?NO REVIEWED WITH PT 12/11/18 1320 BVREVIEWED WITH PATIENT 05/17/19 1419 NLJ. HOSPITALIZATION/MAJOR DIAGNOSTIC PROCEDURE MULTIPLE HOSPITALIZATIONS FOR HIS HEART [facility] ATTACK/PLACEMENT OF ICD 10/23/2018-10/30/2018 REVIEW OF SYSTEMS REVIEWED BY: PROVIDER: DARCIE DOLAN . CONSTITUTIONAL: ANY CHANGE IN YOUR MEDICAL CONDITION? NO . CHILLS NO . FEVER NO . INFECTION: DO YOU HAVE NEW INFECTIONS? NO . DO YOU HAVE HISTORY OF MRSA? NO . MUSCULOSKELETAL: ANY NEW PATTERNS OF PAIN OR NUMBNESS? YES, HANDS AND FEET MORE NUMB . GASTROENTEROLOGY: ANY NEW CHANGE IN BOWEL CONTROL? NO . GENITOURINARY: ANY NEW CHANGE IN BLADDER CONTROL? NO . IS THERE A CHANCE YOU COULD BE ? NO . HEMATOLOGY/LYMPH: DO YOU TAKE ANY BLOOD THINNERS? (FOR EXAMPLE- COUMADIN, PLAVIX, AGGRENOX, PLATEL, PRADAXA, OR XARELTO) YES, PRADAXA . WHEN WAS YOUR LAST DOSE? DATE: TIME: . NEUROLOGY: HAVE YOU FALLEN IN THE PAST 12 MONTHS? YES, PRIOR TO LAST VIST . ANY NEW EXTREMITY NUMBNESS OR WEAKNESS? YES, NUMBNESS TO HANDS AND FEET . CARDIOLOGY: DO YOU HAVE A PACEMAKER OR DEFIBRILLATOR? YES, ICD . RESPIRATORY: HAVE YOU BEEN SICK IN THE PAST WEEK? NO . FEVER NO . FLU LIKE SYMPTOMS? NO . COUGH NO . INTEGUMENTARY: DO YOU HAVE ANY RASHES OR OPEN SORES? NO . ALLERGIC/IMMUNO: ARE YOU ALLERGIC TO IV DYE? NO . ANY NEW ALLERGIES? NO . PSYCHIATRIC: DO YOU HAVE THOUGHTS OF HURTING YOURSELF OR SOMEONE ELSE? NO . ARE YOU ABUSED, NEGLECTED, OR IN AN UNSAFE ENVIRONMENT? NO . ENDOCRINOLOGY: ARE YOU DIABETIC? NO . OTHER: DO YOU NEED ANY PRESCRIPTIONS? YES, TRAMADOL WAS FILLED TODAY? . IF YES, PLEASE LIST: ____ . ANY NEW PROBLEMS WITH YOUR MEDICATIONS? YES, PT SUSPECTS WEIGHT GAIN W INCREASE OF LYRICA . WHEN DID YOU LAST EAT? ____ . WHEN DID YOU LAST DRINK? ____ . WHAT DID YOU LAST DRINK? ____ . NAME OF PERSON DRIVING YOU HOME? ____ . DO YOU HAVE ANY OTHER QUESTIONS OR CONCERNS NO . VITAL SIGNS WT 340.0 LBS, HT 72 IN, BMI 46.11 INDEX, BP 127/79 MM HG, HR 88 /MIN, RR 20 /MIN, TEMP 96.0 F, OXYGEN SAT % 95%, NA INITIALS AW 1344, REVIEWED BY: EM. EXAMINATION GENERAL EXAMINATION: GENERALNO ACUTE DISTRESS, WELL NOURISHED AND HYDRATED. PSYCHAPPROPRIATE MOOD AND AFFECT . LUNGS:CLEAR TO AUSCULTATION BILATERALLY, NO WHEEZES, RHONCHI, RALES. HEART:NO MURMURS, REGULAR RATE AND RHYTHM. BACK:POINT TENDER LOW BACK BILATERALLY , SURROUNDING SKIN SHOWS NO ERYTHEMA, ECCHYMOSIS, INCREASED WARMTH, AND/OR SKIN ERUPTIONS NOTED. . ASSESSMENTS MYALGIA, OTHER SITE - M79.18 (PRIMARY) NEUROPATHY - G62.9 TREATMENT MYALGIA, OTHER SITE NOTES: BILATERAL TPI OF THE LOW BACK. CLINICAL NOTES: 58-YEAR-OLD MALE IN FOR CHRONIC PAIN FOLLOW-UP. GIVEN PRESENTING SYMPTOMS AND RESULTS OF PHYSICAL EXAMINATION RECOMMENDED INCREASING LYRICA AND TPI OF THE LOW BACK BILATERALLY. PATIENT HAS EXPRESSED UNDERSTANDING OF AND WAS IN AGREEMENT WITH TREATMENT PLAN. GIVEN TIME TO ASK QUESTIONS AND EXPRESS CONCERNS., ISTOP REGISTRY REVIEWED AND DEMONSTRATES COMPLLIANCE. (REF # [id number] ) BRINGS IN MEDICATIONS WHICH IS APPROPRIATE FOR WHAT WAS DISPENSED. RECENT URINE TOXICOLOGY REVIEWED. NO UNAUTHORIZED MEDICATIONS. NO ILLICIT SUBSTANCES AND PRESCRIBED MEDICATIONS WERE PRESENT. NEUROPATHY INCREASE LYRICA CAPSULE, 150 MG, 1 CAPSULE, ORALLY, TWICE A DAY, 30 DAYS, 60 REFILL TRAMADOL HCL TABLET, 50 MG, 1-2 TAB, ORALLY, EVERY 6 HRS PRN PAIN MDD=4, 30 DAYS, 120 PROCEDURE CODES FA211 ESTABILISHED PATIENT [facility] CHARGE DISPOSITION & COMMUNICATION FOLLOW UP POSTPROCEDURE (REASON: BILATERAL TPI OF THE LOW BACK) ELECTRONICALLY SIGNED BY RYLEE OROURKE ON 06/14/2019 AT 01:10 PM EDT DISCLAIMER : THIS IS A VISIT SUMMARY EXTRACTED FROM THE [employer] CHART. IT IS NOT A COPY OF THE [employer] PROGRESS NOTE. ALISHA
== END ==
LOC: M PAIN 13:45
PROVIDERS: ATTEND Family Medicine
DX: M79.18 Myalgia, other site (principal); G62.9 Polyneuropathy, unspecified; I10 Essential (primary) hypertension; E78.5 Hyperlipidemia, unspecified; G47.33 Obstructive sleep apnea (adult) (pediatric); I25.2 Old myocardial infarction; Z95.0 Presence of cardiac pacemaker; Z87.891 Personal history of nicotine dependence; Z88.8 Allergy status to other drugs, medicaments and biological substances; Z79.01 Long term (current) use of anticoagulants; E66.01 Morbid (severe) obesity due to excess calories; Z68.42 Body mass index [BMI] 45.0-49.9, adult; Z79.891 Long term (current) use of opiate analgesic; Z79.899 Other long term (current) drug therapy

== ENCOUNTER → 2019-07-18 | Outpatient (CLI) | payer OTHER ==
[~2019-07-18] MED LIST changes: +SIMV20TA2 PO; -SIMV20TA22 PO
== END ==
LOC: M PAIN 13:45
PROVIDERS: ATTEND Anesthesiology
DX: M79.18 Myalgia, other site (principal); Z53.8 Procedure and treatment not carried out for other reasons

== ENCOUNTER → 2019-07-25 | Outpatient (REF) | payer OTHER | LOC: M SFHCCLAY 14:41 | PROVIDERS: ATTEND Family Medicine | DX: Z53.9 Procedure and treatment not carried out, unspecified reason (principal) ==

== ENCOUNTER → 2019-08-20 | Outpatient (CLI) | payer MEDICARE, OTHER ==
[~2019-08-20] MED LIST changes: +BUPIVACAINE HCL 0.25% 10 ML VIAL As Ordered ONE; +BUPIVACAINE HCL 0.25% 30 ML VIAL As Ordered ONE; -SIMV20TA2 PO; +SIMV20TA22 PO; +TRIAMCINOLONE ACETONIDE SUSP 40 MG/ML VIAL (J3301) As Ordered ONE; +diazePAM 5 MG TAB As Ordered ONE; +oxyCODONE 5MG TAB As Ordered ONE
--- NOTE | 2019-09-05 03:52 | ECWPNPC ---
PATIENT NAME: BUSHRA CARIAS : 1960 GENDER: MALE VISIT DATE: 08/20/2019 DISCHARGE DATE: 08/20/19 1444 VISIT LOCKED DATE TIME: PHYSICIAN: MATI SMITH MD PHYSICIAN PAGER NO: [phone] RESOURCE: MATI SMITH MD REASON FOR APPOINTMENT 1. BILATERAL TPI OF THE LOW BACK HISTORY OF PRESENT ILLNESS HISTORY OF PRESENT ILLNESS: PAIN THE PATIENT DESCRIBES THE PAIN... FALL RISK SCREENING: SCREENING :NO FALLS REPORTED IN THE LAST YEAR CURRENT MEDICATIONS TAKING FOLIC ACID 1 MG TABLET 1 TABLET ORALLY ONCE A DAY, NOTES: 08/20/19 AM TAKING AMIODARONE HCL 200 MG TABLET 1 TABLET ORALLY ONCE A DAY, NOTES: 08/20/19 AM TAKING RANOLAZINE ER 500 MG TABLET EXTENDED RELEASE 12 HOUR 1 TABLET ORALLY TWICE A DAY, NOTES: 08/20/19 AM TAKING SPIRONOLACTONE 25 MG TABLET 1 TABLET ORALLY , NOTES: 08/20/19 AM TAKING ALLOPURINOL 300 MG TABLET 1 TABLET ORALLY DAILY, NOTES: 08/20/19 AM TAKING METOPROLOL SUCCINATE ER 200 MG TABLET EXTENDED RELEASE 24 HOUR 1/2 TABLET ORALLY TWICE DAILY, NOTES: 08/20/19 AM TAKING ROLLING WALKER 1 1 DIRECTED DX: G62.9 TAKING SLOW-MAG 400 TABLET DELAYED RELEASE 1 TABLET ORALLY DAILY, NOTES: NONR LATELY TAKING LYRICA 100 MG CAPSULE 1 CAPSULE ORALLY TWICE A DAY, NOTES: 08/20/19 AM TAKING DILTIAZEM HCL ER 240 MG CAPSULE EXTENDED RELEASE 24 HOUR 1 CAPSULE ON AN EMPTY STOMACH IN THE MORNING ORALLY ONCE A DAY, NOTES: 08/20/19 AM TAKING METOPROLOL TARTRATE 100 MG TABLET 1 TABLET ORALLY BID, NOTES: 08/20/19 AM TAKING TORSEMIDE 10 MG TABLET 4 TABLET ORALLY DAILY, NOTES: 08/20/19 AM TAKING PRADAXA 150 MG 1 TABLET TWICE A DAY, NOTES: 08/20/19 AM TAKING NORTRIPTYLINE HCL 25 MG CAPSULE 1 CAPSULE ORALLY TWICE A DAY, NOTES: 08/20/19 AM TAKING NORCO 10-325 MG TABLET 1-2 TABLET NEEDED ORALLY EVERY 6 HRS MDD=6, NOTES: 08/19/19 TAKING TRAMADOL HCL 50 MG TABLET 1-2 TAB ORALLY EVERY 6 HRS PRN PAIN MDD=4, NOTES: 08/19/19 NOT-TAKING GABAPENTIN 300 MG CAPSULE 1 CAPSULE ORALLY FOR PAIN BEFORE BEDTIME NOT-TAKING GABAPENTIN 600 MG TABLET 1 CAPSULE ORALLY DAILY DISCONTINUED FOLIC ACID 1 MG TABLET 1 TABLET ORALLY ONCE A DAY MEDICATION LIST REVIEWED AND RECONCILED WITH THE PATIENT PAST MEDICAL HISTORY HYPERTENSION HYPERLIPIDEMIA GOUT ATRIAL FIB MICH- USES BIPAP- FOLLOWS WITH PULMONARY NEUROPATHY BOTH FEET ENLARGED HEART MITRAL REGURGITATION CONGESTIVE HEART FAILURE [place] 09/2018 CARDIAC ABLASION 12/08/18 PACEMAKER/DEBRIBFRILATOR 10/26/18 ALLERGIES LISINOPRIL: LIGHTHEADEDNESS - SIDE EFFECTS CYMBALTA: NAUSEA/VOMITING - SIDE EFFECTS SURGICAL HISTORY 4TH METACARPAL RIGHT HAND SURGERY, A CHILD 1979 WISDOM TEETH EXTRACT CYST REMOVAL- LEFT SHOULDER 08/2016 CARDIOVERSION X 5 [id number] HEART CATH-[facility] 04/12/18 INSERTION OF BI-VENTRICULAR ICD @[facility] (PACER/DEFIBRILLATOR) 10/27/18 CARDIAC ABLASION 11/10/18 TRIGGER POINT INJECTIONS IN BACK 02/2019 FAMILY HISTORY FATHER: 69 YRS, DIVERTICULITIS, ANEURYSM MOTHER: 83 YRS, CARDIAC DISEASE, DIAGNOSED WITH UNSPECIFIED HEART DISEASE 3DAUGHTER(S) . SOCIAL HISTORY GENERAL: TOBACCO USE ARE YOU A:FORMER SMOKER HOW LONG HAS IT BEEN SINCE YOU LAST SMOKED?> 10 YEARS VAPORNO E-CIGARETTENO HIV / HEP-C SCREENING HIV TEST OFFERED TO PATIENT:YES DATE OFFERED:07/25/2019 TEST ACCEPTED:NO HEP-C TEST OFFERED TO PATIENT:YES DATE OFFERED:07/25/2019 REASON:PATIENT DECLINED TEST ACCEPTED:NO REASON:PATIENT DECLINED BROCHURE PROVIDED TO PATIENTNO OTHERS AT HOME: NONE. EDUCATION LEVEL OF EDUCATION:COLLEGE DIET: LOW FAT, LOW CHOLESTEROL, LOW SODIUM. LANGUAGE LANGUAGES SPOKEN:WOLOF NO DOMESTIC VIOLENCE DO YOU FEEL SAFE IN YOUR ENVIRONMENT?YES BMI CARE GOAL FOLLOW-UP ABOVE NORMAL BMI FOLLOW-UPDIETARY MANAGEMENT EDUCATION, GUIDANCE, AND COUNSELING RECREATIONAL DRUG USE DRUG USE?NO MARIJUANA IN PAST, NONE RECENTLY EXERCISE: NONE. LEARNING BARRIERS / SPECIAL NEEDS CHANGE FROM LAST VISIT?NO 07/25/19 BARRIERS TO LEARNING?NO HEARING IMPAIRED?NO VISION IMPAIRED?YES COGNITIVELY IMPAIRED?NO :CORRECTIVE LENSES READINESS TO LEARN?YES LEARNING PREFERENCES?NO LEARNING CAPABILITIES PRESENT?YES EMOTIONAL BARRIERS?NO SPECIAL DEVICES?YES -O2 :OTHER WALKING STICK, 4 WHEEL WALKER AT HOME NURSE CHEMICAL DEPENDENCY NEEDED?NO PAIN CLINIC PFS, CLERGY, PUBLIC HEALTH REFERRALS PFS REFERRAL NEEDED?NO CLERGY REFERRAL NEEDED?NO PUBLIC HEALTH REFERRAL NEEDED?NO WAS THE PROVIDER NOTIFIED OF ANY PERTINENT INFO? N/A HAS THE PATIENT BEEN EDUCATED REGARDING HIS/HER PLAN OF CARE?YES HAS THE PATIENT BEEN EDUCATED REGARDING PAIN, THE RISK FOR PAIN, THE IMPORTANCE OF EFFECTIVE PAIN MANAGEMENT, AND THE PAIN ASSESSMENT PROCESS?YES LATEX QUESTIONNAIRE LATEX ALLERGY : HAVE YOU EVER DEVELOPED ANY TYPE OF REACTION AFTER HANDLING LATEX PRODUCTS SUCH RUBBER GLOVES, CONDOMS, DIAPHRAGMS, BALLOONS, SOCKS, OR UNDERWEAR?NO LATEX ALLERGY : HAVE YOU EVER DEVELOPED ANY TYPE OF REACTION DURING OR AFTER DENTAL APPOINTMENT, VAGINAL/RECTAL EXAMINATION, SURGICAL PROCEDURE, OR ANY OTHER EXPOSURE?NO DATE ASKED : 03/19/2019 LATEX RISK : HAVE YOU EVER HAD ANY DIFFICULTY BREATHING OR HIVES AFTER EATING OR HANDLING ANY FRUITS, OR VEGETABLES; SUCH KIWI, BANANAS, STONE FRUITS, OR CHESTNUTSNO LATEX RISK : DO YOU HAVE A PREVIOUS PERSONAL HISTORY OF MORE THAN NINE SURGERIES, SPINA BIFIDA, OR REPEATED CATHERIZATIONS? NO LATEX RISK : ARE YOU FREQUENTLY EXPOSED TO LATEX PRODUCTS IN YOUR OCCUPATION?NO NO CAFFEINE CAFFEINE USE?NO ADVANCE DIRECTIVE ADVANCE DIRECTIVE DISCUSSED WITH PATIENT:YES PT STATES HE DOES NOT HAVE ANY ADVANCE DIRECTIVES AND HE DECLINES INFORMATION ON HCP AT THIS TIME. RASTAFARIAN [id number] PROTESTANT MARITAL STATUS: .. 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 SEXUAL HX HAD SEX IN THE LAST 12 MONTHS (VAGINAL, ORAL, OR ANAL)?NO HAVE YOU EVER HAD AN STD?NO REVIEWED WITH PT 12/11/18 1320 BVREVIEWED WITH PATIENT 05/17/19 1419 [place]. HOSPITALIZATION/MAJOR DIAGNOSTIC PROCEDURE MULTIPLE HOSPITALIZATIONS FOR HIS HEART [facility] ATTACK/PLACEMENT OF ICD 10/23/2018-10/30/2018 REVIEW OF SYSTEMS REVIEWED BY: PROVIDER: . CONSTITUTIONAL: ANY CHANGE IN YOUR MEDICAL CONDITION? NO . CHILLS NO . FEVER NO . INFECTION: DO YOU HAVE NEW INFECTIONS? NO . DO YOU HAVE HISTORY OF MRSA? NO . MUSCULOSKELETAL: ANY NEW PATTERNS OF PAIN OR NUMBNESS? YES, FINGERS NUMB AND WEAK . GASTROENTEROLOGY: ANY NEW CHANGE IN BOWEL CONTROL? NO . GENITOURINARY: ANY NEW CHANGE IN BLADDER CONTROL? NO . IS THERE A CHANCE YOU COULD BE ? NO . HEMATOLOGY/LYMPH: DO YOU TAKE ANY BLOOD THINNERS? (FOR EXAMPLE- COUMADIN, PLAVIX, AGGRENOX, PLATEL, PRADAXA, OR XARELTO) YES, PRADAXA . WHEN WAS YOUR LAST DOSE? DATE: TIME: . NEUROLOGY: HAVE YOU FALLEN IN THE PAST 12 MONTHS? YES, PRIOR TO LAST VISIT . ANY NEW EXTREMITY NUMBNESS OR WEAKNESS? YES, FINGERS NUMB AND WEAK . CARDIOLOGY: DO YOU HAVE A PACEMAKER OR DEFIBRILLATOR? YES . RESPIRATORY: HAVE YOU BEEN SICK IN THE PAST WEEK? NO . FEVER NO . FLU LIKE SYMPTOMS? NO . COUGH NO . INTEGUMENTARY: DO YOU HAVE ANY RASHES OR OPEN SORES? NO . ALLERGIC/IMMUNO: ARE YOU ALLERGIC TO IV DYE? NO . ANY NEW ALLERGIES? NO . PSYCHIATRIC: DO YOU HAVE THOUGHTS OF HURTING YOURSELF OR SOMEONE ELSE? NO . ARE YOU ABUSED, NEGLECTED, OR IN AN UNSAFE ENVIRONMENT? NO . ENDOCRINOLOGY: ARE YOU DIABETIC? NO . OTHER: DO YOU NEED ANY PRESCRIPTIONS? NO . IF YES, PLEASE LIST: ____ . ANY NEW PROBLEMS WITH YOUR MEDICATIONS? NO . WHEN DID YOU LAST EAT? 08/19/19 1900 . WHEN DID YOU LAST DRINK? 08/20/19 1000 . WHAT DID YOU LAST DRINK? JUICE . NAME OF PERSON DRIVING YOU HOME? NAKIA . DO YOU HAVE ANY OTHER QUESTIONS OR CONCERNS NO . VITAL SIGNS WT 333.0 LBS, HT 72 IN, BMI 45.16 INDEX, BP 142/84 MM HG, HR 86 /MIN, RR 20 /MIN, TEMP 95.5 F, OXYGEN SAT % 95%, NA INITIALS AW 1257, REVIEWED BY: [place]. ASSESSMENTS MYALGIA, OTHER SITE - M79.18 (PRIMARY) PROCEDURES PN TRIGGER POINT INJECTION WITH STEROIDS PRE PROCEDURE DIAGNOSIS 1. MYALGIA 2. PAIN AT BILATERAL LOW BACK AREA. POST PROCEDURE DIAGNOSIS 1. MYALGIA 2. PAIN AT BILATERAL LOW BACK AREA. PROCEDURE TRIGGER POINT INJECTION AT RIGHT AND LEFT LOW BACK AREA. SURGEON DR. MATI SMITH FOOD OPERATIONS MANAGER NONE ANESTHESIA LOCAL PRE PROCEDURE NOTE THE PATIENT HAS A HISTORY OF CHRONIC PAIN AT THE RIGHT AND LEFT LOW BACK AREA. I EVALUATED THE PATIENT AND REVIEWED THE CHART. THERE IS EVIDENCE OF BANDS OF TISSUE WITH RESTRICTION OF MOVEMENT AND PRESENCE OF TRIGGER POINT AT THE AFFECTED AREA. I WENT OVER THE RISKS, ALTERNATIVES, AND BENEFITS ASSOCIATED WITH THIS PROCEDURE. THE PATIENT WOULD LIKE TO PROCEED AND GIVES CONSENT TO PERFORM THE PROCEDURE. THE PATIENT DENIES UNEXPLAINABLE WEIGHT LOSS, FEVER, CHILLS, OR NEW CHANGES IN URINARY OR BOWEL CONTROL DESCRIPTION OF PROCEDURE THE PATIENT WAS BROUGHT TO THE PROCEDURE ROOM AND PLACED IN THE SITTING POSITION. THE AREA WAS CLEANED WITH ALCOHOL. THE PROCEDURE WAS DONE USING ASEPTIC STERILE TECHNIQUE. I CHECKED LATERALITY AND THE LEVEL WHERE THE PROCEDURE WAS GOING TO BE PERFORMED WITH THE PATIENT AND THE SUPPORTING STAFF AT THE MOMENT OF THE TIME OUT IN THE PROCEDURE ROOM. USING A 25-GAUGE NEEDLE, TRIGGER POINTS WERE INJECTED AT THE RIGHT AND LEFT LOW BACK AREA WITH A TOTAL OF 40 ML OF BUPIVACAINE 0.25% AND KENALOG 40 MG. THERE WAS NO EVIDENCE OF BLOOD, PARESTHESIA OR CEREBROSPINAL FLUID DURING THE PROCEDURE. THE PATIENT WAS SENT TO THE RECOVERY ROOM. THE PATIENT WAS MOVING THE EXTREMITIES AND DOING WELL. THERE WAS NO COMPLICATION DURING THE PROCEDURE POST PROCEDURE NOTE THE PATIENT WILL BE SEEN IN A FOLLOW UP IN THE NEXT FEW WEEKS. I AM LOOKING FOR LONG LASTING PAIN RELIEF WITH THIS INJECTION FOR THE PATIENT. DEPENDING ON THE TRIGGER POINT INJECTION RESULTS, I MAY CONSIDER PERFORMING A SACROILIAC JOINT BLOCK WITH IV SEDATION IN THE FUTURE. INSTRUCTIONS WERE GIVEN, QUESTIONS WERE ANSWERED, AND THE PATIENT EXPRESSED UNDERSTANDING AND AGREES WITH THE PLAN. I, DARRIN LUNA, DOCUMENTED THE ABOVE INFORMATION ACTING A SCRIBE FOR DR. SMITH. I HAVE REVIEWED THE ABOVE DOCUMENT, WRITTEN BY DARRIN ARANAIBKun AND I VERIFY THAT IT IS ACCURATE. PROCEDURE CODES 76388 INJ TRIGGER POINT / MUSCL DISPOSITION & COMMUNICATION FOLLOW UP 3 WEEKS ELECTRONICALLY SIGNED BY MATI SMITH MD, MD ON 09/04/2019 AT 07:52 PM EST DISCLAIMER : THIS IS A VISIT SUMMARY EXTRACTED FROM THE [employer] CHART. IT IS NOT A COPY OF THE [employer] PROGRESS NOTE. ALISHA
== END ==
LOC: M PAIN 13:15
PROVIDERS: ATTEND Anesthesiology
DX: M79.18 Myalgia, other site (principal); I10 Essential (primary) hypertension; E78.5 Hyperlipidemia, unspecified; G47.33 Obstructive sleep apnea (adult) (pediatric); I25.2 Old myocardial infarction; Z95.0 Presence of cardiac pacemaker; Z87.891 Personal history of nicotine dependence; Z88.8 Allergy status to other drugs, medicaments and biological substances; E66.01 Morbid (severe) obesity due to excess calories; Z68.42 Body mass index [BMI] 45.0-49.9, adult; Z79.01 Long term (current) use of anticoagulants; Z79.891 Long term (current) use of opiate analgesic; Z79.899 Other long term (current) drug therapy
CPT/HCPCS: 20552; J3301

== ENCOUNTER → 2019-09-03 | Outpatient (CLI) | payer MEDICARE, MEDICAID ==
[~2019-09-03] MED LIST changes: -BUPIVACAINE HCL 0.25% 10 ML VIAL As Ordered ONE; -BUPIVACAINE HCL 0.25% 30 ML VIAL As Ordered ONE; -TRIAMCINOLONE ACETONIDE SUSP 40 MG/ML VIAL (J3301) As Ordered ONE; -diazePAM 5 MG TAB As Ordered ONE; -oxyCODONE 5MG TAB As Ordered ONE
--- NOTE | 2019-09-06 03:17 | ECWPNPC ---
PATIENT NAME: BUSHRA CARIAS : 1960 GENDER: MALE VISIT DATE: 09/03/2019 DISCHARGE DATE: 09/03/19 1430 VISIT LOCKED DATE TIME: PHYSICIAN: DANII CARIAS PHYSICIAN PAGER NO: [phone] RESOURCE: DANII CARIAS REASON FOR APPOINTMENT 1. POST TPI LOW BACK HISTORY OF PRESENT ILLNESS GENERAL: 59-YEAR-OLD MALE WHO IS IN FOR POST TRIGGER POINT INJECTIONS. HE FEELS THE PROCEDURE WAS NOT HELPFUL HE RATES HIS PAIN CURRENTLY 6-7 OUT OF 10 AND DESCRIBES IT SHARP, BURNING, STABBING, AND SHOOTING. HISTORY OF PRESENT ILLNESS: PAIN THE PATIENT DESCRIBES THE PAIN... FALL RISK SCREENING: SCREENING :NO FALLS REPORTED IN THE LAST YEAR CURRENT MEDICATIONS TAKING FOLIC ACID 1 MG TABLET 1 TABLET ORALLY ONCE A DAY TAKING AMIODARONE HCL 200 MG TABLET 1 TABLET ORALLY ONCE A DAY TAKING RANOLAZINE ER 500 MG TABLET EXTENDED RELEASE 12 HOUR 1 TABLET ORALLY TWICE A DAY TAKING SPIRONOLACTONE 25 MG TABLET 1 TABLET ORALLY TAKING ALLOPURINOL 300 MG TABLET 1 TABLET ORALLY DAILY TAKING METOPROLOL SUCCINATE ER 200 MG TABLET EXTENDED RELEASE 24 HOUR 1/2 TABLET ORALLY TWICE DAILY TAKING ROLLING WALKER 1 1 DIRECTED DX: G62.9 TAKING LYRICA 100 MG CAPSULE 1 CAPSULE ORALLY DAILY, NOTES: 08/20/19 AM TAKING DILTIAZEM HCL ER 240 MG CAPSULE EXTENDED RELEASE 24 HOUR 1 CAPSULE ON AN EMPTY STOMACH IN THE MORNING ORALLY ONCE A DAY, NOTES: 08/20/19 AM TAKING TORSEMIDE 10 MG TABLET 4 TABLET ORALLY DAILY, NOTES: 08/20/19 AM TAKING PRADAXA 150 MG 1 TABLET TWICE A DAY, NOTES: 08/20/19 AM TAKING NORTRIPTYLINE HCL 25 MG CAPSULE 1 CAPSULE ORALLY TWICE A DAY, NOTES: 08/20/19 AM TAKING NORCO 10-325 MG TABLET 1-2 TABLET NEEDED ORALLY EVERY 6 HRS MDD=6, NOTES: 08/19/19 TAKING TRAMADOL HCL 50 MG TABLET 1-2 TAB ORALLY EVERY 6 HRS PRN PAIN MDD=4, NOTES: 08/19/19 TAKING METOLAZONE 2.5 MG TABLET ORALLY EVERY OTHE RDAY NOT-TAKING SLOW-MAG 400 TABLET DELAYED RELEASE 1 TABLET ORALLY DAILY, NOTES: NONR LATELY NOT-TAKING METOPROLOL TARTRATE 100 MG TABLET 1 TABLET ORALLY BID, NOTES: 08/20/19 AM UNKNOWN GABAPENTIN 300 MG CAPSULE 1 CAPSULE ORALLY FOR PAIN BEFORE BEDTIME UNKNOWN GABAPENTIN 600 MG TABLET 1 CAPSULE ORALLY DAILY MEDICATION LIST REVIEWED AND RECONCILED WITH THE PATIENT PAST MEDICAL HISTORY HYPERTENSION HYPERLIPIDEMIA GOUT ATRIAL FIB MICH- USES BIPAP- FOLLOWS WITH PULMONARY NEUROPATHY BOTH FEET ENLARGED HEART MITRAL REGURGITATION CONGESTIVE HEART FAILURE UT 09/2018 CARDIAC ABLASION 12/08/18 PACEMAKER/DEBRIBFRILATOR 10/26/18 ALLERGIES LISINOPRIL: LIGHTHEADEDNESS - SIDE EFFECTS CYMBALTA: NAUSEA/VOMITING - SIDE EFFECTS SURGICAL HISTORY 4TH METACARPAL RIGHT HAND SURGERY, A CHILD 1980 WISDOM TEETH EXTRACT CYST REMOVAL- LEFT SHOULDER 08/2016 CARDIOVERSION X 5 [id number] HEART CATH-[facility] 04/12/18 INSERTION OF BI-VENTRICULAR ICD @[facility] (PACER/DEFIBRILLATOR) 10/27/18 CARDIAC ABLASION 11/10/18 TRIGGER POINT INJECTIONS IN BACK 02/2019 FAMILY HISTORY FATHER: 69 YRS, DIVERTICULITIS, ANEURYSM MOTHER: 83 YRS, CARDIAC DISEASE, DIAGNOSED WITH UNSPECIFIED HEART DISEASE 3DAUGHTER(S) . SOCIAL HISTORY GENERAL: TOBACCO USE ARE YOU A:FORMER SMOKER HOW LONG HAS IT BEEN SINCE YOU LAST SMOKED?> 10 YEARS VAPORNO E-CIGARETTENO HIV / HEP-C SCREENING HIV TEST OFFERED TO PATIENT:YES DATE OFFERED:07/25/2019 TEST ACCEPTED:NO HEP-C TEST OFFERED TO PATIENT:YES DATE OFFERED:07/25/2019 REASON:PATIENT DECLINED TEST ACCEPTED:NO REASON:PATIENT DECLINED BROCHURE PROVIDED TO PATIENTNO OTHERS AT HOME: NONE. EDUCATION LEVEL OF EDUCATION:COLLEGE DIET: LOW FAT, LOW CHOLESTEROL, LOW SODIUM. LANGUAGE LANGUAGES SPOKEN:KYRGYZ NO DOMESTIC VIOLENCE DO YOU FEEL SAFE IN YOUR ENVIRONMENT?YES BMI CARE GOAL FOLLOW-UP ABOVE NORMAL BMI FOLLOW-UPDIETARY MANAGEMENT EDUCATION, GUIDANCE, AND COUNSELING RECREATIONAL DRUG USE DRUG USE?NO MARIJUANA IN PAST, NONE RECENTLY EXERCISE: NONE. 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 N/A HAS THE PATIENT BEEN EDUCATED REGARDING HIS/HER PLAN OF CARE?YES HAS THE PATIENT BEEN EDUCATED REGARDING PAIN, THE RISK FOR PAIN, THE IMPORTANCE OF EFFECTIVE PAIN MANAGEMENT, AND THE PAIN ASSESSMENT PROCESS?YES LATEX QUESTIONNAIRE LATEX ALLERGY : HAVE YOU EVER DEVELOPED ANY TYPE OF REACTION AFTER HANDLING LATEX PRODUCTS SUCH RUBBER GLOVES, CONDOMS, DIAPHRAGMS, BALLOONS, SOCKS, OR UNDERWEAR?NO LATEX ALLERGY : HAVE YOU EVER DEVELOPED ANY TYPE OF REACTION DURING OR AFTER DENTAL APPOINTMENT, VAGINAL/RECTAL EXAMINATION, SURGICAL PROCEDURE, OR ANY OTHER EXPOSURE?NO DATE ASKED : 03/19/2019 LATEX RISK : HAVE YOU EVER HAD ANY DIFFICULTY BREATHING OR HIVES AFTER EATING OR HANDLING ANY FRUITS, OR VEGETABLES; SUCH KIWI, BANANAS, STONE FRUITS, OR CHESTNUTSNO LATEX RISK : DO YOU HAVE A PREVIOUS PERSONAL HISTORY OF MORE THAN NINE SURGERIES, SPINA BIFIDA, OR REPEATED CATHERIZATIONS? NO LATEX RISK : ARE YOU FREQUENTLY EXPOSED TO LATEX PRODUCTS IN YOUR OCCUPATION?NO NO CAFFEINE CAFFEINE USE?NO ADVANCE DIRECTIVE ADVANCE DIRECTIVE DISCUSSED WITH PATIENT:YES PT STATES HE DOES NOT HAVE ANY ADVANCE DIRECTIVES AND HE DECLINES INFORMATION ON HCP AT THIS TIME. ASKED AGAIN RELIGIOUS [id number] BUDDHISM MARITAL STATUS: .. 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 SEXUAL HX HAD SEX IN THE LAST 12 MONTHS (VAGINAL, ORAL, OR ANAL)?NO HAVE YOU EVER HAD AN STD?NO REVIEWED WITH PT 12/11/18 1320 BVREVIEWED WITH PATIENT 05/17/19 1419 NLJ. HOSPITALIZATION/MAJOR DIAGNOSTIC PROCEDURE MULTIPLE HOSPITALIZATIONS FOR HIS HEART [facility] ATTACK/PLACEMENT OF ICD 10/23/2018-10/30/2018 REVIEW OF SYSTEMS REVIEWED BY: PROVIDER: DARCIE DOLAN . CONSTITUTIONAL: ANY CHANGE IN YOUR MEDICAL CONDITION? NO, NO . CHILLS NO, NO . FEVER NO, NO . INFECTION: DO YOU HAVE NEW INFECTIONS? NO, NO . DO YOU HAVE HISTORY OF MRSA? NO, NO . MUSCULOSKELETAL: ANY NEW PATTERNS OF PAIN OR NUMBNESS? NO, NO . GASTROENTEROLOGY: ANY NEW CHANGE IN BOWEL CONTROL? NO, NO . GENITOURINARY: ANY NEW CHANGE IN BLADDER CONTROL? NO, NO . IS THERE A CHANCE YOU COULD BE ? NO, NO . HEMATOLOGY/LYMPH: DO YOU TAKE ANY BLOOD THINNERS? (FOR EXAMPLE- COUMADIN, PLAVIX, AGGRENOX, PLATEL, PRADAXA, OR XARELTO) NO, NO . WHEN WAS YOUR LAST DOSE? DATE: TIME: , DATE: TIME: . NEUROLOGY: HAVE YOU FALLEN IN THE PAST 12 MONTHS? NO, NO . ANY NEW EXTREMITY NUMBNESS OR WEAKNESS? NO, NO . CARDIOLOGY: DO YOU HAVE A PACEMAKER OR DEFIBRILLATOR? NO, NO . RESPIRATORY: HAVE YOU BEEN SICK IN THE PAST WEEK? NO, NO . FEVER NO, NO . FLU LIKE SYMPTOMS? NO, NO . COUGH NO, NO . INTEGUMENTARY: DO YOU HAVE ANY RASHES OR OPEN SORES? NO, NO . ALLERGIC/IMMUNO: ARE YOU ALLERGIC TO IV DYE? NO, NO . ANY NEW ALLERGIES? NO, NO . PSYCHIATRIC: DO YOU HAVE THOUGHTS OF HURTING YOURSELF OR SOMEONE ELSE? NO, NO . ARE YOU ABUSED, NEGLECTED, OR IN AN UNSAFE ENVIRONMENT? NO, NO . ENDOCRINOLOGY: ARE YOU DIABETIC? NO, NO . OTHER: DO YOU NEED ANY PRESCRIPTIONS? NO, NO . IF YES, PLEASE LIST: ____, ____ . ANY NEW PROBLEMS WITH YOUR MEDICATIONS? NO, NO . WHEN DID YOU LAST EAT? ____, ____ . WHEN DID YOU LAST DRINK? ____, ____ . WHAT DID YOU LAST DRINK? ____, ____ . NAME OF PERSON DRIVING YOU HOME? ____, ____ . DO YOU HAVE ANY OTHER QUESTIONS OR CONCERNS NO, NO . VITAL SIGNS WT 326.2 LBS, HT 72 IN, BMI 44.24 INDEX, BP 140/80 MM HG, HR 104 /MIN, RR 20 /MIN, TEMP 96.8 F, OXYGEN SAT % 94%, SAFE IN ENV? (Y/N) Y, NA INITIALS AW 1314, REVIEWED BY: KG. EXAMINATION GENERAL EXAMINATION: GENERALNO ACUTE DISTRESS, WELL NOURISHED AND HYDRATED. PSYCHAPPROPRIATE MOOD AND AFFECT . LUNGS:CLEAR TO AUSCULTATION BILATERALLY, NO WHEEZES, RHONCHI, RALES. HEART:NO MURMURS, REGULAR RATE AND RHYTHM. BACK: BILATERAL SI JOINT TENDERNESS POSITIVE JONES'S TEST RIGHT SIDE. ASSESSMENTS SACROILIITIS - M46.1 (PRIMARY) TREATMENT SACROILIITIS NOTES: BILATERAL SIJ WITH IV SEDATION. CLINICAL NOTES: 59-YEAR-OLD MALE IN FOR POST TPI FOLLOW-UP. GIVEN PRESENTING SYMPTOMS, RESULTS OF PHYSICAL EXAMINATION, AND RECOMMENDATION OF DR. SMITH RECOMMEND BILATERAL SIJ'S WITH POSTPROCEDURAL FOLLOW-UP. PATIENT HAS EXPRESSED UNDERSTANDING OF AND WAS IN AGREEMENT WITH TREATMENT PLAN. GIVEN TIME TO ASK QUESTIONS AND EXPRESS CONCERNS., ISTOP REGISTRY REVIEWED AND DEMONSTRATES COMPLLIANCE. (REF #[id number] ) BRINGS IN MEDICATIONS WHICH IS APPROPRIATE FOR WHAT WAS DISPENSED. RECENT URINE TOXICOLOGY REVIEWED. NO UNAUTHORIZED MEDICATIONS. NO ILLICIT SUBSTANCES AND PRESCRIBED MEDICATIONS WERE PRESENT. PROCEDURE CODES FA211 ESTABILISHED PATIENT [facility] CHARGE DISPOSITION & COMMUNICATION FOLLOW UP POSTPROCEDURE (REASON: BILATERAL SIJ WITH IV SEDATION) ELECTRONICALLY SIGNED BY RYLEE OROURKE ON 09/05/2019 AT 09:33 AM EST DISCLAIMER : THIS IS A VISIT SUMMARY EXTRACTED FROM THE [employer] CHART. IT IS NOT A COPY OF THE [employer] PROGRESS NOTE. ALISHA
== END ==
LOC: M PAIN 13:15
PROVIDERS: ATTEND Family Medicine
DX: M46.1 Sacroiliitis, not elsewhere classified (principal); I10 Essential (primary) hypertension; E78.5 Hyperlipidemia, unspecified; G47.33 Obstructive sleep apnea (adult) (pediatric); I25.2 Old myocardial infarction; Z95.0 Presence of cardiac pacemaker; Z87.891 Personal history of nicotine dependence; Z88.8 Allergy status to other drugs, medicaments and biological substances; E66.01 Morbid (severe) obesity due to excess calories; Z68.41 Body mass index [BMI] 40.0-44.9, adult; Z79.891 Long term (current) use of opiate analgesic; Z79.899 Other long term (current) drug therapy

== ENCOUNTER → 2019-09-11 | Outpatient (REF) | payer MEDICARE, MEDICAID | LOC: M SFHCCLAY 15:11 | PROVIDERS: ATTEND Family Medicine | DX: J02.9 Acute pharyngitis, unspecified (principal) ==

== ENCOUNTER → 2019-09-27 | Outpatient (REF) | payer MEDICARE, MEDICAID ==
[2019-09-28 11:57] LABS: FOLATE > 24.0 NG/ML (>5.4); TOTAL 25(OH) VITAMIN D 11.3 NG/ML (30.0-100.0)
== END ==
LOC: M SFHCCLAY 14:01
PROVIDERS: ATTEND Family Medicine
DX: I11.0 Hypertensive heart disease with heart failure (principal); Z79.899 Other long term (current) drug therapy

== ENCOUNTER → 2019-09-27 | Outpatient (REF) | payer MEDICARE, MEDICAID ==
[2019-09-28 12:20] LABS: CALCIUM LEVEL 9.8 MG/DL (8.5-10.1); CREATININE FOR GFR 1.83 MG/DL (0.70-1.30); GLOMERULAR FILTRATION RATE 40.5 (>56); POTASSIUM SERUM 3.8 MEQ/L (3.5-5.1)
== END ==
LOC: M LABDRAWC 11:15
PROVIDERS: ATTEND Internal Medicine Cardiovascular Disease
DX: R06.02 Shortness of breath (principal); I50.9 Heart failure, unspecified

== ENCOUNTER → 2019-10-05 | Outpatient (CLI) | payer MEDICARE, MEDICAID ==
--- NOTE | 2019-10-18 04:00 | ECWPNPC ---
PATIENT NAME: BUSHRA CARIAS : 1960 GENDER: MALE VISIT DATE: 10/05/2019 DISCHARGE DATE: 10/05/19 1634 VISIT LOCKED DATE TIME: PHYSICIAN: MATI SMITH MD PHYSICIAN PAGER NO: [phone] RESOURCE: MATI SMITH MD REASON FOR APPOINTMENT 1. PRE SEDATE HISTORY OF PRESENT ILLNESS HISTORY OF PRESENT ILLNESS: PAIN THE PATIENT DESCRIBES THE PAIN... 59 YEAR OLD MALE PATIENT WITH A HISTORY OF CHRONIC LOW BACK PAIN. THE PATIENT DESCRIBES THE PAIN SHARP, STABBING, SHOOTING, DAILY, AND CONTINUOUS WITH A PAIN SCORE OF 6-10/10 DEPENDING ON PHYSICAL ACTIVITY. THE PATIENT STATES HIS PAIN BEGINS IN HIS LOW BACK AND RADIATES DOWN HIS RIGHT LEG. THE PATIENT SAYS HE HAS BEEN SUFFERING FROM HIS PAIN FOR MANY YEARS AND IS AFFECTING HIS ABILITY TO PERFORM HIS DAILY ACTIVITIES SUCH WORKING OUTSIDE, CLEANING HIS HOUSE, AND SLEEPING. PATIENT DENIES UNEXPLAINABLE WEIGHT LOSS, FEVER, CHILLS, NEW CHANGES ON HIS URINARY OR BOWEL CONTROL. FALL RISK SCREENING: SCREENING :NO FALLS REPORTED IN THE LAST YEAR CURRENT MEDICATIONS TAKING METOPROLOL SUCCINATE ER 200 MG TABLET EXTENDED RELEASE 24 HOUR 1/2 TABLET ORALLY TWICE DAILY TAKING NORTRIPTYLINE HCL 25 MG CAPSULE 1 CAPSULE ORALLY TWICE A DAY, NOTES: 08/20/19 AM TAKING METOLAZONE 2.5 MG TABLET ORALLY EVERY OTHE RDAY TAKING ALLOPURINOL 300 MG TABLET 1 TABLET ORALLY DAILY TAKING DILTIAZEM HCL ER 240 MG CAPSULE EXTENDED RELEASE 24 HOUR 1 CAPSULE ON AN EMPTY STOMACH IN THE MORNING ORALLY ONCE A DAY TAKING TORSEMIDE 10 MG TABLET 4 TABLET ORALLY DAILY TAKING PRADAXA 150 MG 1 TABLET TWICE A DAY TAKING RANOLAZINE ER 500 MG TABLET EXTENDED RELEASE 12 HOUR 1 TABLET ORALLY TWICE A DAY TAKING SPIRONOLACTONE 25 MG TABLET 1 TABLET ORALLY DAILY TAKING MAGNESIUM 1 TABLET ORALLY DAILY OTC TAKING NORCO 10-325 MG TABLET 1-2 TABLET NEEDED ORALLY EVERY 6 HRS MDD=4 TAKING TRAMADOL HCL 50 MG TABLET 1-2 TAB ORALLY EVERY 6 HRS PRN PAIN MDD=4 TAKING LYRICA 100 MG CAPSULE 1 CAPSULE ORALLY DAILY TAKING NORTRIPTYLINE HCL 25 MG CAPSULE 1 CAPSULE ORALLY TWICE A DAY TAKING FOLIC ACID 1 MG TABLET 1 TABLET ORALLY ONCE A DAY NOT-TAKING CEFDINIR 300 MG CAPSULE 1 CAP ORALLY BID NOT-TAKING BENZONATATE 200 MG CAPSULE 1 CAPSULE ORALLY THREE TIMES A DAY NOT-TAKING ROLLING WALKER 1 1 DIRECTED DX: G62.9 MEDICATION LIST REVIEWED AND RECONCILED WITH THE PATIENT PAST MEDICAL HISTORY HYPERTENSION HYPERLIPIDEMIA GOUT ATRIAL FIB MICH- USES BIPAP- FOLLOWS WITH PULMONARY NEUROPATHY BOTH FEET ENLARGED HEART MITRAL REGURGITATION CONGESTIVE HEART FAILURE ME 09/2018 CARDIAC ABLATION 12/08/18 PACEMAKER/DEBRIBFRILATOR 10/26/18 ALLERGIES LISINOPRIL: LIGHTHEADEDNESS - SIDE EFFECTS CYMBALTA: NAUSEA/VOMITING - SIDE EFFECTS - ONSET DATE 09/07/2019 SURGICAL HISTORY 4TH METACARPAL RIGHT HAND SURGERY, A CHILD 1979 WISDOM TEETH EXTRACT CYST REMOVAL- LEFT SHOULDER 08/2016 CARDIOVERSION X 5 [id number] HEART CATH-[facility] 04/12/18 INSERTION OF BI-VENTRICULAR ICD @[facility] (PACER/DEFIBRILLATOR) 10/27/18 CARDIAC ABLATION 11/10/18 TRIGGER POINT INJECTIONS IN BACK 02/2019 FAMILY HISTORY FATHER: 69 YRS, DIVERTICULITIS, ANEURYSM MOTHER: 83 YRS, CARDIAC DISEASE, DIAGNOSED WITH UNSPECIFIED HEART DISEASE 3DAUGHTER(S) . SOCIAL HISTORY GENERAL: TOBACCO USE ARE YOU A:FORMER SMOKER 09/11/2019 HOW LONG HAS IT BEEN SINCE YOU LAST SMOKED?> 10 YEARS QUIT 2003 VAPORNO E-CIGARETTENO HIV / HEP-C SCREENING HIV TEST OFFERED TO PATIENT:YES DATE OFFERED:07/25/2019 TEST ACCEPTED:NO HEP-C TEST OFFERED TO PATIENT:YES DATE OFFERED:07/25/2019 REASON:PATIENT DECLINED TEST ACCEPTED:NO REASON:PATIENT DECLINED BROCHURE PROVIDED TO PATIENTNO OTHERS AT HOME: NONE. EDUCATION LEVEL OF EDUCATION:COLLEGE DIET: LOW FAT, LOW CHOLESTEROL, LOW SODIUM. LANGUAGE LANGUAGES SPOKEN:ARMENIAN NO DOMESTIC VIOLENCE DO YOU FEEL SAFE IN YOUR ENVIRONMENT?YES BMI CARE GOAL FOLLOW-UP ABOVE NORMAL BMI FOLLOW-UPDIETARY MANAGEMENT EDUCATION, GUIDANCE, AND COUNSELING RECREATIONAL DRUG USE DRUG USE?NO MARIJUANA IN PAST, NONE RECENTLY EXERCISE: NONE. 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 N/A HAS THE PATIENT BEEN EDUCATED REGARDING HIS/HER PLAN OF CARE?YES HAS THE PATIENT BEEN EDUCATED REGARDING PAIN, THE RISK FOR PAIN, THE IMPORTANCE OF EFFECTIVE PAIN MANAGEMENT, AND THE PAIN ASSESSMENT PROCESS?YES LATEX QUESTIONNAIRE LATEX ALLERGY : HAVE YOU EVER DEVELOPED ANY TYPE OF REACTION AFTER HANDLING LATEX PRODUCTS SUCH RUBBER GLOVES, CONDOMS, DIAPHRAGMS, BALLOONS, SOCKS, OR UNDERWEAR?NO LATEX ALLERGY : HAVE YOU EVER DEVELOPED ANY TYPE OF REACTION DURING OR AFTER DENTAL APPOINTMENT, VAGINAL/RECTAL EXAMINATION, SURGICAL PROCEDURE, OR ANY OTHER EXPOSURE?NO DATE ASKED : 09/11/2019 LATEX RISK : HAVE YOU EVER HAD ANY DIFFICULTY BREATHING OR HIVES AFTER EATING OR HANDLING ANY FRUITS, OR VEGETABLES; SUCH KIWI, BANANAS, STONE FRUITS, OR CHESTNUTSNO LATEX RISK : DO YOU HAVE A PREVIOUS PERSONAL HISTORY OF MORE THAN NINE SURGERIES, SPINA BIFIDA, OR REPEATED CATHERIZATIONS? NO LATEX RISK : ARE YOU FREQUENTLY EXPOSED TO LATEX PRODUCTS IN YOUR OCCUPATION?NO NO CAFFEINE CAFFEINE USE?NO ADVANCE DIRECTIVE ADVANCE DIRECTIVE DISCUSSED WITH PATIENT:YES 10/05/19 PT STATES HE DOES NOT HAVE ANY ADVANCE DIRECTIVES AND HE DECLINES INFORMATION ON HCP AT THIS TIME. BV MU-ISM [id number] SCIENTOLOGY MARITAL STATUS: .. 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 SEXUAL HX HAD SEX IN THE LAST 12 MONTHS (VAGINAL, ORAL, OR ANAL)?YES WITHWOMEN ONLY USE PROTECTION?NO HAVE YOU EVER HAD AN STD?NO REVIEWED WITH PT 12/11/18 1320 BVREVIEWED WITH PATIENT 05/17/19 1419 NLJREVIEWED WITH PATIENT 10/05/19 1455 BV. HOSPITALIZATION/MAJOR DIAGNOSTIC PROCEDURE MULTIPLE HOSPITALIZATIONS FOR HIS HEART [facility] ATTACK/PLACEMENT OF ICD 10/23/2018-10/30/2018 REVIEW OF SYSTEMS REVIEWED BY: PROVIDER: . CONSTITUTIONAL: ANY CHANGE IN YOUR MEDICAL CONDITION? PT STATES IS IN THE PROCESS OF SEEING ORTHO REGARDING RIGHT HIP REPLACEMENT . CHILLS NO . FEVER NO . INFECTION: DO YOU HAVE NEW INFECTIONS? NO . DO YOU HAVE HISTORY OF MRSA? NO . MUSCULOSKELETAL: ANY NEW PATTERNS OF PAIN OR NUMBNESS? YES, PT REPORTS INCREASING NEUROPATHY PAIN. STATES HE WAKES UP IN SEVERE PAIN AT NIGHT. . GASTROENTEROLOGY: ANY NEW CHANGE IN BOWEL CONTROL? NO . GENITOURINARY: ANY NEW CHANGE IN BLADDER CONTROL? NO . IS THERE A CHANCE YOU COULD BE ? NO . HEMATOLOGY/LYMPH: DO YOU TAKE ANY BLOOD THINNERS? (FOR EXAMPLE- COUMADIN, PLAVIX, AGGRENOX, PLATEL, PRADAXA, OR XARELTO) PRADAXA . WHEN WAS YOUR LAST DOSE? DATE: TIME: . NEUROLOGY: HAVE YOU FALLEN IN THE PAST 12 MONTHS? YES, PT REPORTS NEAR FALL IN AUGUST 2019. STATES HE CAUGHT HIMSELF AND DENIES ANY OTHER FALLS SINCE THEN. . ANY NEW EXTREMITY NUMBNESS OR WEAKNESS? YES . CARDIOLOGY: DO YOU HAVE A PACEMAKER OR DEFIBRILLATOR? YES, PACEMAKER/DEFIBRILLATOR . RESPIRATORY: HAVE YOU BEEN SICK IN THE PAST WEEK? YES, PT HAD A SINUS INFECTION A FEW WEEKS AGO. WAS TREATED WITH ANTIBIOTICS AND IS FEELING BETTER . FEVER NO . FLU LIKE SYMPTOMS? NO . COUGH NO . INTEGUMENTARY: DO YOU HAVE ANY RASHES OR OPEN SORES? NO . ALLERGIC/IMMUNO: ARE YOU ALLERGIC TO IV DYE? NO . ANY NEW ALLERGIES? NO . PSYCHIATRIC: DO YOU HAVE THOUGHTS OF HURTING YOURSELF OR SOMEONE ELSE? NO . ARE YOU ABUSED, NEGLECTED, OR IN AN UNSAFE ENVIRONMENT? NO . ENDOCRINOLOGY: ARE YOU DIABETIC? NO . OTHER: DO YOU NEED ANY PRESCRIPTIONS? NO . IF YES, PLEASE LIST: ____ . ANY NEW PROBLEMS WITH YOUR MEDICATIONS? NO . WHEN DID YOU LAST EAT? ____ . WHEN DID YOU LAST DRINK? ____ . WHAT DID YOU LAST DRINK? ____ . NAME OF PERSON DRIVING YOU HOME? ____ . DO YOU HAVE ANY OTHER QUESTIONS OR CONCERNS NO . VITAL SIGNS WT 331.4 LBS, HT 72 IN, BMI 44.94 INDEX, BP 137/83 MM HG, HR 92 /MIN, RR 20 /MIN, TEMP 96.8 F, OXYGEN SAT % 96%, NA INITIALS SC 14:59, REVIEWED BY: ANICETO. EXAMINATION GENERAL EXAMINATION: PATIENT IS ALERT O X 3 AND COOPERATIVE. LUNGS CLEAR, TO AUSCULTATION. HEART: NO MURMURS OR GALLOPS; FACIAL CRANIAL NERVES ARE GROSSLY NORMAL. GOOD SYMMETRY OF FACIAL MUSCLE MOVEMENT. NORMAL VISUAL [place]. ANTALGIC WALK. PATIENT IS HOLDING A CANE IN HIS RIGHT HAND. RIGHT LEG IS WEAKER AT EXTENSION AND FLEXION. TENDERNESS IN THE LOW BACK OVER THE BILATERAL SACROILIAC JOINTS. FABERE TEST IS POSITIVE FOR BILATERAL SACROILIAC JOINT DYSFUNCTION. MRI OF THE LUMBAR SPINE DONE ON 08/30/2017 SHOWS DISC PROTRUSION AND FACET ARTHROPATHY CHANGES AT MULTIPLE LEVELS. ASSESSMENTS SACROILIITIS, NOT ELSEWHERE CLASSIFIED - M46.1 (PRIMARY) LOW BACK PAIN - M54.5 OTHER CHRONIC PAIN - G89.29 TREATMENT SACROILIITIS, NOT ELSEWHERE CLASSIFIED CLINICAL NOTES: WE DISCUSSED SEVERAL ISSUES WITH MR. CARIAS'S PAIN MANAGEMENT CASE. DUE TO THE SACROILIAC JOINT DYSFUNCTION, I WOULD LIKE TO MOVE FORWARD WITH A BILATERAL SACROILIAC JOINT BLOCK AT THIS TIME. THE PATIENT WOULD LIKE TO MOVE FORWARD WITH IV SEDATION DUE TO DISCOMFORT, PAIN, AND ANXIETY ASSOCIATED WITH THE PROCEDURE. WE DISCUSSED THE BENEFITS, RISKS, AND ALTERNATIVES OF THE INJECTION AND THE PATIENT WOULD LIKE TO PROCEED. THE PATIENT WILL FOLLOW UP IN SEVERAL WEEKS AFTER HIS PROCEDURE TO SEE HOW IT IS HELPING WITH HIS PAIN. THE PATIENT WILL CONTINUE WITH PRADAXA 150 MG DUE TO PAST HISTORY OF AFIB. THE PATIENT WILL STOP ALLOPURINOL 300 MG SEVEN DAYS BEFORE THE INJECTION. THE PATIENT WILL KEEP FLUIDS TO LESS THAN 200 CC BEFORE THE PROCEDURE. INSTRUCTIONS WERE GIVEN, QUESTIONS WERE ANSWERED, PATIENT REPORTS UNDERSTANDING AND AGREES WITH THE PLAN. I, DARRIN LUNA, DOCUMENTED THE ABOVE INFORMATION ACTING A SCRIBE FOR DR. SMITH. I HAVE REVIEWED THE ABOVE DOCUMENT, WRITTEN BY DARRIN SNELL AND I VERIFY THAT IT IS ACCURATE.. PREVENTIVE MEDICINE PAIN CLINIC TEACHING: PROCEDURE TEACHING PT GIVEN WRITTEN AND VERBAL EDUCATION ON SACROILIAC JOINT INJECTIONS. PT ALSO GIVEN WRITTEN AND VERBAL PRE PROCEDURE INSTRUCTIONS. PT VERBALIZES UNDERSTANDING OF ALL EDUCATION AND INSTRUCTIONS. SANDY GAO 10/05/2019 4:27:07 PM > . PROCEDURE CODES FA211 ESTABILISHED PATIENT [facility] FACILITY CHARGE G8427 CURRENT MEDS W/DOSAGES DOCUMENTED G8730 PAIN ASSESS POS TOOL F/U PLAN DOC DISPOSITION & COMMUNICATION FOLLOW UP REASON: SIJ BLOCK W/ IV SEDATE, (ALREADY SCHEDULED) ELECTRONICALLY SIGNED BY MATI SMITH MD, MD ON 10/17/2019 AT 03:48 PM EST DISCLAIMER : THIS IS A VISIT SUMMARY EXTRACTED FROM THE [employer] CHART. IT IS NOT A COPY OF THE [employer] PROGRESS NOTE. ALISHA
== END ==
LOC: M PAIN 14:30
PROVIDERS: ATTEND Anesthesiology
DX: M46.1 Sacroiliitis, not elsewhere classified (principal); M54.5 Low back pain; G89.29 Other chronic pain; I10 Essential (primary) hypertension; E78.5 Hyperlipidemia, unspecified; G47.33 Obstructive sleep apnea (adult) (pediatric); I25.2 Old myocardial infarction; Z95.0 Presence of cardiac pacemaker; Z87.891 Personal history of nicotine dependence; Z88.8 Allergy status to other drugs, medicaments and biological substances; E66.01 Morbid (severe) obesity due to excess calories; Z68.41 Body mass index [BMI] 40.0-44.9, adult; Z79.01 Long term (current) use of anticoagulants; Z79.891 Long term (current) use of opiate analgesic; Z79.899 Other long term (current) drug therapy

== ENCOUNTER → 2019-10-23 | Outpatient (CLI) | payer MEDICARE, MEDICAID ==
[~2019-10-23] MED LIST changes: +BUPIVACAINE HCL 0.25% 30 ML VIAL As Ordered ONE; +ISOVUE-M 300 61% 15ML VIAL (Q9967) As Ordered ONE; +LIDOCAINE 1% SDV INJ 30 ML VIAL As Ordered ONE; +MIDAZOLAM INJ 2 MG/2 ML VIAL (J2250) As Ordered ONE; +TRIAMCINOLONE ACETONIDE SUSP 40 MG/ML VIAL (J3301) As Ordered ONE; +fentaNYL 100 MCG/2 ML INJECTION (J3010) As Ordered ONE
--- NOTE | 2019-10-23 18:22 | REP ---
C-ARM VIEWS SACROILIAC JOINTS: CLINICAL HISTORY: Pain. Four C-ARM views of the bilateral sacroiliac joints are performed during injections by Dr. Baird. Needle is seen overlying each sacroiliac joint. Fluoroscopy time was 1 minute and 2 seconds. Electronically Signed by Jordin Irwin MD 10/24/2019 10:30 P
--- NOTE | 2019-11-02 03:34 | ECWPNPC ---
PATIENT NAME: BUSHRA CARIAS : 1960 GENDER: MALE VISIT DATE: 10/23/2019 DISCHARGE DATE: 10/23/19 1451 VISIT LOCKED DATE TIME: PHYSICIAN: MATI SMITH MD PHYSICIAN PAGER NO: [phone] RESOURCE: MATI SMITH MD REASON FOR APPOINTMENT 1. SIJ IV SEDATION; KEEP IV FLUIDS LESS THAN 200 CC HISTORY OF PRESENT ILLNESS HISTORY OF PRESENT ILLNESS: PAIN THE PATIENT DESCRIBES THE PAIN... FALL RISK SCREENING: SCREENING :NO FALLS REPORTED IN THE LAST YEAR CURRENT MEDICATIONS TAKING METOPROLOL SUCCINATE ER 200 MG TABLET EXTENDED RELEASE 24 HOUR 1/2 TABLET ORALLY TWICE DAILY, NOTES: 10/23/2019 08 TAKING NORTRIPTYLINE HCL 25 MG CAPSULE 1 CAPSULE ORALLY TWICE A DAY, NOTES: 10/23/2019 08 TAKING METOLAZONE 2.5 MG TABLET ORALLY EVERY OTHE RDAY, NOTES: 10/22/2019 08 TAKING ALLOPURINOL 300 MG TABLET 1 TABLET ORALLY DAILY, NOTES: 10/19/2019 TAKING DILTIAZEM HCL ER 240 MG CAPSULE EXTENDED RELEASE 24 HOUR 1 CAPSULE ON AN EMPTY STOMACH IN THE MORNING ORALLY ONCE A DAY, NOTES: 10/23/2019 08 TAKING TORSEMIDE 10 MG TABLET 4 TABLET ORALLY DAILY, NOTES: 10/23/2019 08 TAKING PRADAXA 150 MG 1 TABLET TWICE A DAY, NOTES: 10/23/2019 08 TAKING RANOLAZINE ER 500 MG TABLET EXTENDED RELEASE 12 HOUR 1 TABLET ORALLY TWICE A DAY, NOTES: 10/23/2019 08 TAKING SPIRONOLACTONE 25 MG TABLET 1 TABLET ORALLY DAILY, NOTES: 10/23/2019 08 TAKING MAGNESIUM 1 TABLET ORALLY DAILY OTC, NOTES: 10/22/2019 08 TAKING FOLIC ACID 1 MG TABLET 1 TABLET ORALLY ONCE A DAY, NOTES: 10/23/2019799 TAKING NORCO 10-325 MG TABLET 1-2 TABLET NEEDED ORALLY EVERY 6 HRS MDD=4, NOTES: 10/22/20192029 TAKING TRAMADOL HCL 50 MG TABLET 1-2 TAB ORALLY EVERY 6 HRS PRN PAIN MDD=4, NOTES: COUPLE OF DAYS TAKING LYRICA 100 MG CAPSULE 1 CAPSULE ORALLY DAILY, NOTES: 10/23/2019 08 NOT-TAKING NORTRIPTYLINE HCL 25 MG CAPSULE 1 CAPSULE ORALLY TWICE A DAY, NOTES: DUP[LICATE NOT-TAKING CEFDINIR 300 MG CAPSULE 1 CAP ORALLY BID NOT-TAKING BENZONATATE 200 MG CAPSULE 1 CAPSULE ORALLY THREE TIMES A DAY NOT-TAKING ROLLING WALKER 1 1 DIRECTED DX: G62.9 MEDICATION LIST REVIEWED AND RECONCILED WITH THE PATIENT PAST MEDICAL HISTORY HYPERTENSION HYPERLIPIDEMIA GOUT ATRIAL FIB MICH- USES BIPAP- FOLLOWS WITH PULMONARY NEUROPATHY BOTH FEET ENLARGED HEART MITRAL REGURGITATION CONGESTIVE HEART FAILURE CT 09/2018 CARDIAC ABLATION 12/08/18 PACEMAKER/DEBRIBFRILATOR 10/26/18 ALLERGIES LISINOPRIL: LIGHTHEADEDNESS - SIDE EFFECTS CYMBALTA: NAUSEA/VOMITING - SIDE EFFECTS - ONSET DATE 09/07/2019 SURGICAL HISTORY 4TH METACARPAL RIGHT HAND SURGERY, A CHILD 1979 WISDOM TEETH EXTRACT CYST REMOVAL- LEFT SHOULDER 08/2016 CARDIOVERSION X 5 [id number] HEART CATH-[facility] 04/12/18 INSERTION OF BI-VENTRICULAR ICD @[facility]' (PACER/DEFIBRILLATOR) 10/27/18 CARDIAC ABLATION 11/10/18 TRIGGER POINT INJECTIONS IN BACK 02/2019 FAMILY HISTORY FATHER: 69 YRS, DIVERTICULITIS, ANEURYSM MOTHER: 83 YRS, CARDIAC DISEASE, DIAGNOSED WITH UNSPECIFIED HEART DISEASE 3DAUGHTER(S) . SOCIAL HISTORY GENERAL: TOBACCO USE ARE YOU A:FORMER SMOKER 09/11/2019 HOW LONG HAS IT BEEN SINCE YOU LAST SMOKED?> 10 YEARS QUIT 2003 VAPORNO E-CIGARETTENO HIV / HEP-C SCREENING HIV TEST OFFERED TO PATIENT:YES DATE OFFERED:07/25/2019 TEST ACCEPTED:NO HEP-C TEST OFFERED TO PATIENT:YES DATE OFFERED:07/25/2019 REASON:PATIENT DECLINED TEST ACCEPTED:NO REASON:PATIENT DECLINED BROCHURE PROVIDED TO PATIENTNO OTHERS AT HOME: NONE. EDUCATION LEVEL OF EDUCATION:COLLEGE DIET: LOW FAT, LOW CHOLESTEROL, LOW SODIUM. LANGUAGE LANGUAGES SPOKEN:FRENCH NO DOMESTIC VIOLENCE DO YOU FEEL SAFE IN YOUR ENVIRONMENT?YES BMI CARE GOAL FOLLOW-UP ABOVE NORMAL BMI FOLLOW-UPDIETARY MANAGEMENT EDUCATION, GUIDANCE, AND COUNSELING RECREATIONAL DRUG USE DRUG USE?NO MARIJUANA IN PAST, NONE RECENTLY EXERCISE: NONE. 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 N/A HAS THE PATIENT BEEN EDUCATED REGARDING HIS/HER PLAN OF CARE?YES HAS THE PATIENT BEEN EDUCATED REGARDING PAIN, THE RISK FOR PAIN, THE IMPORTANCE OF EFFECTIVE PAIN MANAGEMENT, AND THE PAIN ASSESSMENT PROCESS?YES LATEX QUESTIONNAIRE LATEX ALLERGY : HAVE YOU EVER DEVELOPED ANY TYPE OF REACTION AFTER HANDLING LATEX PRODUCTS SUCH RUBBER GLOVES, CONDOMS, DIAPHRAGMS, BALLOONS, SOCKS, OR UNDERWEAR?NO LATEX ALLERGY : HAVE YOU EVER DEVELOPED ANY TYPE OF REACTION DURING OR AFTER DENTAL APPOINTMENT, VAGINAL/RECTAL EXAMINATION, SURGICAL PROCEDURE, OR ANY OTHER EXPOSURE?NO DATE ASKED : 09/11/2019 LATEX RISK : HAVE YOU EVER HAD ANY DIFFICULTY BREATHING OR HIVES AFTER EATING OR HANDLING ANY FRUITS, OR VEGETABLES; SUCH KIWI, BANANAS, STONE FRUITS, OR CHESTNUTSNO LATEX RISK : DO YOU HAVE A PREVIOUS PERSONAL HISTORY OF MORE THAN NINE SURGERIES, SPINA BIFIDA, OR REPEATED CATHERIZATIONS? NO LATEX RISK : ARE YOU FREQUENTLY EXPOSED TO LATEX PRODUCTS IN YOUR OCCUPATION?NO NO CAFFEINE CAFFEINE USE?NO ADVANCE DIRECTIVE ADVANCE DIRECTIVE DISCUSSED WITH PATIENT:YES 10/05/19 PT STATES HE DOES NOT HAVE ANY ADVANCE DIRECTIVES AND HE DECLINES INFORMATION ON HCP AT THIS TIME. BV ANABAPTISM [id number] ANABAPTISM MARITAL STATUS: .. 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 SEXUAL HX HAD SEX IN THE LAST 12 MONTHS (VAGINAL, ORAL, OR ANAL)?YES WITHWOMEN ONLY USE PROTECTION?NO HAVE YOU EVER HAD AN STD?NO REVIEWED WITH PT 12/11/18 1320 BVREVIEWED WITH PATIENT 05/17/19 1419 NLJREVIEWED WITH PATIENT 10/05/19 1455 BV. HOSPITALIZATION/MAJOR DIAGNOSTIC PROCEDURE MULTIPLE HOSPITALIZATIONS FOR HIS HEART [facility] ATTACK/PLACEMENT OF ICD 10/23/2018-10/30/2018 REVIEW OF SYSTEMS REVIEWED BY: PROVIDER: . CONSTITUTIONAL: ANY CHANGE IN YOUR MEDICAL CONDITION? NO . CHILLS NO . FEVER NO . INFECTION: DO YOU HAVE NEW INFECTIONS? NO . DO YOU HAVE HISTORY OF MRSA? NO . MUSCULOSKELETAL: ANY NEW PATTERNS OF PAIN OR NUMBNESS? NO . GASTROENTEROLOGY: ANY NEW CHANGE IN BOWEL CONTROL? NO . GENITOURINARY: ANY NEW CHANGE IN BLADDER CONTROL? NO . IS THERE A CHANCE YOU COULD BE ? NO . HEMATOLOGY/LYMPH: DO YOU TAKE ANY BLOOD THINNERS? (FOR EXAMPLE- COUMADIN, PLAVIX, AGGRENOX, PLATEL, PRADAXA, OR XARELTO) NO . WHEN WAS YOUR LAST DOSE? DATE: TIME: . NEUROLOGY: HAVE YOU FALLEN IN THE PAST 12 MONTHS? NO . ANY NEW EXTREMITY NUMBNESS OR WEAKNESS? NO . CARDIOLOGY: DO YOU HAVE A PACEMAKER OR DEFIBRILLATOR? NO . RESPIRATORY: HAVE YOU BEEN SICK IN THE PAST WEEK? NO . FEVER NO . FLU LIKE SYMPTOMS? NO . COUGH NO . INTEGUMENTARY: DO YOU HAVE ANY RASHES OR OPEN SORES? NO . ALLERGIC/IMMUNO: ARE YOU ALLERGIC TO IV DYE? NO . ANY NEW ALLERGIES? NO . PSYCHIATRIC: DO YOU HAVE THOUGHTS OF HURTING YOURSELF OR SOMEONE ELSE? NO . ARE YOU ABUSED, NEGLECTED, OR IN AN UNSAFE ENVIRONMENT? NO . ENDOCRINOLOGY: ARE YOU DIABETIC? NO . OTHER: DO YOU NEED ANY PRESCRIPTIONS? NO . IF YES, PLEASE LIST: ____ . ANY NEW PROBLEMS WITH YOUR MEDICATIONS? NO . WHEN DID YOU LAST EAT? 10/22/2019 1900 . WHEN DID YOU LAST DRINK? 10/23/2019 0800 . WHAT DID YOU LAST DRINK? WATER . NAME OF PERSON DRIVING YOU HOME? JULIAN . DO YOU HAVE ANY OTHER QUESTIONS OR CONCERNS NO . VITAL SIGNS WT 330 LBS, HT 72 IN, BMI 44.75 INDEX, BP 142/86 MM HG, HR 87 /MIN, RR 18 /MIN, TEMP 96.9 F, OXYGEN SAT % 96%, SAFE IN ENV? (Y/N) YES, NA INITIALS [id number], REVIEWED BY: WINSTON. 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 I EVALUATED THE PATIENT AND REVIEWED THE CHART. I WENT OVER THE RISKS, ALTERNATIVES, AND BENEFITS ASSOCIATED WITH THIS PROCEDURE. THE PATIENT WOULD LIKE TO PROCEED AND GAVE CONSENT TO PERFORM THE PROCEDURE. THE PATIENT WOULD LIKE TO MOVE FORWARD WITH IV SEDATION DUE TO DISCOMFORT, PAIN, AND ANXIETY ASSOCIATED WITH THE PROCEDURE. THE PATIENT DENIES UNEXPLAINABLE WEIGHT LOSS, FEVER, CHILLS, OR NEW CHANGES IN URINARY OR BOWEL CONTROL DESCRIPTION OF PROCEDURE THE PATIENT WAS BROUGHT TO THE PROCEDURE ROOM AND PLACED IN THE RIGHT LATERAL DECUBITUS POSITION. THE LUMBOSACRAL AREA WAS CLEANED WITH CHLORAPREP SOLUTION AND DRAPED ASEPTICALLY. THE PROCEDURE WAS DONE UNDER STERILE CONDITIONS. I CHECKED LATERALITY AND THE LEVEL WHERE THE PROCEDURE WAS GOING TO BE PERFORMED WITH THE PATIENT AND THE SUPPORTING STAFF AT THE MOMENT OF THE TIME OUT IN THE PROCEDURE ROOM. UNDER FLUOROSCOPIC GUIDANCE, TARGET POINT WAS SELECTED AT THE LOWER BORDER OF THE RIGHT AND LEFT SACROILIAC JOINT. TARGET POINT WAS SELECTED AFTER MEDIAL ROTATION AND TILT OF THE MAGNIFIER OF THE C-ARM. LIDOCAINE WAS USED TO NUMB THE SKIN AND SUBCUTANEOUS TISSUE BELOW IT. A SPINAL NEEDLE, 22-GAUGE, WAS ADVANCED UNDER FLUOROSCOPIC GUIDANCE AND FOLLOWING PATIENT FEEDBACK UNTIL THE TARGET AREA WAS TOUCHED. THE POSITION OF THE NEEDLE WAS VERIFIED WITH AP AND LATERAL VIEWS. AFTER PROPER POSITION OF THE NEEDLE WAS ACHIEVED, ISOVUE M DYE 30%, 0.25 ML, WAS INJECTED SHOWING SPREAD OF THE DYE. THEN, A SOLUTION OF 30 MG OF KENALOG WAS INJECTED IN RIGHT AND LEFT JOINT WITH 3 ML OF BUPIVACAINE 0.125%. THERE WAS NO EVIDENCE OF BLOOD, PARESTHESIA OR CEREBROSPINAL FLUID DURING THE PROCEDURE. THE PATIENT WAS SENT TO THE RECOVERY ROOM. THE PATIENT WAS MOVING THE EXTREMITIES AND DOING WELL. THERE WAS NO COMPLICATION DURING THE PROCEDURE. PATIENT RECEIVED FENTANYL 100 MCG IV DIVIDED DOSES. FACE TO FACE TIME WAS 25 MINUTES. FLUOROSCOPY TIME WAS 62 SECONDS POST PROCEDURE NOTE THE PATIENT WILL BE SEEN IN A FOLLOW UP IN THE NEXT FEW WEEKS. I AM LOOKING FOR LONG LASTING PAIN RELIEF WITH THIS INJECTION. INSTRUCTIONS WERE GIVEN, QUESTIONS WERE ANSWERED, AND THE PATIENT EXPRESSED UNDERSTANDING AND AGREED WITH THE PLAN. I, DARRIN LUNA, DOCUMENTED THE ABOVE INFORMATION ACTING A SCRIBE FOR DR. SMITH. I HAVE REVIEWED THE ABOVE DOCUMENT, WRITTEN BY DARRNI LUNA SCRIBE AND I VERIFY THAT IT IS ACCURATE. PROCEDURE CODES 00837 INJECT SACROILIAC JOINT, MODIFIERS: 50 [id number] RADXPS IN END [id number] PXD [id number] MOD SED SAME PHYS/QHP 5/>YRS 42010 MOD SED SAME PHYS/QHP EA DISPOSITION & COMMUNICATION FOLLOW UP 3 WEEKS ELECTRONICALLY SIGNED BY MATI SMITH MD, MD ON 11/01/2019 AT 05:31 PM EST DISCLAIMER : THIS IS A VISIT SUMMARY EXTRACTED FROM THE [employer] [employer] CHART. IT IS NOT A COPY OF THE [employer] PROGRESS NOTE. ALISHA
== END ==
LOC: M PAIN 11:00
PROVIDERS: ATTEND Anesthesiology
DX: M46.1 Sacroiliitis, not elsewhere classified (principal)
CPT/HCPCS: 99152; 99153; G0260; J2250; J3010; J3301; Q9967

== ENCOUNTER → 2019-11-14 | Outpatient (CLI) | payer MEDICARE ==
[~2019-11-14] MED LIST changes: -BUPIVACAINE HCL 0.25% 30 ML VIAL As Ordered ONE; -ISOVUE-M 300 61% 15ML VIAL (Q9967) As Ordered ONE; -LIDOCAINE 1% SDV INJ 30 ML VIAL As Ordered ONE; -MIDAZOLAM INJ 2 MG/2 ML VIAL (J2250) As Ordered ONE; -TRIAMCINOLONE ACETONIDE SUSP 40 MG/ML VIAL (J3301) As Ordered ONE; -fentaNYL 100 MCG/2 ML INJECTION (J3010) As Ordered ONE
--- NOTE | 2019-11-14 15:50 | REP ---
Clinical: Bronchitis. Technique: PA and lateral. Comparison: 02/12/2014. Findings: Mediastinum and cardiac silhouette are stable. Pacemaker overlies the right ventricle. The lung fuentes are clear and without focal consolidation or effusion. No pneumothorax. Skeletal structures are intact. Impression: No focal consolidation or effusion. Electronically Signed by Demetrio Martini MD 11/14/2019 03:41 P
== END ==
LOC: M CLY 15:12
PROVIDERS: ATTEND Family Medicine
DX: J40 Bronchitis, not specified as acute or chronic (principal); Z95.0 Presence of cardiac pacemaker

== ENCOUNTER → 2019-11-27 | Outpatient (CLI) | payer MEDICARE ==
--- NOTE | 2019-11-30 00:54 | ECWPNPC ---
PATIENT NAME: BUSHRA CARIAS : 1960 GENDER: MALE VISIT DATE: 11/27/2019 DISCHARGE DATE: 11/27/19 1624 VISIT LOCKED DATE TIME: PHYSICIAN: DANII CARIAS PHYSICIAN PAGER NO: [phone] RESOURCE: DANII CARIAS REASON FOR APPOINTMENT 1. POST SIJ HISTORY OF PRESENT ILLNESS HISTORY OF PRESENT ILLNESS: PAIN THE PATIENT DESCRIBES THE PAIN... 59-YEAR-OLD MALE IN FOR POST SIJ FOLLOW-UP. HE FEELS THE PROCEDURE WAS INEFFECTIVE OVERALL. RATING HIS PAIN CURRENTLY AT AN 8 OUT OF 10 AND DESCRIBING IT SHARP, BURNING, STABBING, AND SHOOTING. PATIENT FEELS MEDICATIONS ARE INEFFECTIVE AND WOULD LIKE TO DISCUSS CHANGING MEDICATIONS. HE DOES ADMIT TO AN UPCOMING APPOINTMENT WITH PALLIATIVE CARE AT THE [facility]. FALL RISK SCREENING: SCREENING :NO FALLS REPORTED IN THE LAST YEAR CURRENT MEDICATIONS TAKING AMOXICILLIN-POT CLAVULANATE 875-125 MG TABLET 1 TABLET ORALLY EVERY 12 HRS TAKING BENZONATATE 200 MG CAPSULE 1 CAPSULE ORALLY Q 6 H PRN COUGH TAKING METOPROLOL SUCCINATE ER 200 MG TABLET EXTENDED RELEASE 24 HOUR 1/2 TABLET ORALLY TWICE DAILY TAKING NORTRIPTYLINE HCL 25 MG CAPSULE 1 CAPSULE ORALLY TWICE A DAY TAKING METOLAZONE 2.5 MG TABLET ORALLY EVERY OTHE RDAY TAKING ALLOPURINOL 300 MG TABLET 1 TABLET ORALLY DAILY TAKING DILTIAZEM HCL ER 240 MG CAPSULE EXTENDED RELEASE 24 HOUR 1 CAPSULE ON AN EMPTY STOMACH IN THE MORNING ORALLY ONCE A DAY TAKING TORSEMIDE 10 MG TABLET 4 TABLET ORALLY DAILY TAKING LYRICA 100 MG CAPSULE 1 CAPSULE ORALLY DAILY TAKING PRADAXA 150 MG 1 TABLET TWICE A DAY TAKING RANOLAZINE ER 500 MG TABLET EXTENDED RELEASE 12 HOUR 1 TABLET ORALLY TWICE A DAY TAKING SPIRONOLACTONE 25 MG TABLET 1 TABLET ORALLY DAILY TAKING MAGNESIUM 400 MG TABLET 1 TABLET ORALLY DAILY OTC TAKING FOLIC ACID 1 MG TABLET 1 TABLET ORALLY ONCE A DAY TAKING NORCO 10-325 MG TABLET 1-2 TABLET NEEDED ORALLY EVERY 6 HRS MDD=4 TAKING TRAMADOL HCL 50 MG TABLET 1-2 TAB ORALLY EVERY 6 HRS PRN PAIN MDD=4 DISCONTINUED PREDNISONE 20 MG TABLET 1 TABLET ORALLY BID FOR 5 DAYS THEN ONCE DAILY DISCONTINUED BENZONATATE 200 MG CAPSULE 1 CAPSULE ORALLY Q6H PRN COUGH MEDICATION LIST REVIEWED AND RECONCILED WITH THE PATIENT PAST MEDICAL HISTORY HYPERTENSION GOUT ATRIAL FIB MICH- USES BIPAP- FOLLOWS WITH PULMONARY NEUROPATHY BOTH FEET ENLARGED HEART MITRAL REGURGITATION CONGESTIVE HEART FAILURE MD 09/2018 CARDIAC ABLATION 12/08/18 PACEMAKER/DEBRIBFRILATOR 10/26/18 BONE ON BONE RIGHT HIP ALLERGIES LISINOPRIL: LIGHTHEADEDNESS - SIDE EFFECTS CYMBALTA: NAUSEA/VOMITING - SIDE EFFECTS - ONSET DATE 09/07/2019 SURGICAL HISTORY 4TH METACARPAL RIGHT HAND SURGERY, A CHILD 1980 WISDOM TEETH EXTRACT CYST REMOVAL- LEFT SHOULDER 08/2016 CARDIOVERSION X 5 [id number] HEART [facility] 04/12/18 INSERTION OF BI[facility]TRICULAR [facility] (PACER/DEFIBRILL[facility]) 10/27/18 CARDIAC ABLATION 11/10/18 TRIGGER POINT INJECTIONS IN BACK 02/2019 BILATERAL INJECTIONS-LOWER BACK AND PELVIS 09/2019 FAMILY HISTORY FATHER: 69 YRS, DIVERTICULITIS, ANEURYSM MOTHER: 83 YRS, CARDIAC DISEASE, DIAGNOSED WITH UNSPECIFIED HEART DISEASE 3DAUGHTER(S) . SOCIAL HISTORY GENERAL: TOBACCO USE ARE YOU A:FORMER SMOKER HOW LONG HAS IT BEEN SINCE YOU LAST SMOKED?> 10 YEARS QUIT 2003 VAPORNO E-CIGARETTENO HIV / HEP-C SCREENING HIV TEST OFFERED TO PATIENT:YES DATE OFFERED:11/05/2019 TEST ACCEPTED:NO HEP-C TEST OFFERED TO PATIENT:YES DATE OFFERED:11/05/2019 REASON:PATIENT DECLINED TEST ACCEPTED:NO REASON:PATIENT DECLINED BROCHURE PROVIDED TO PATIENTNO OTHERS AT HOME: NONE. EDUCATION LEVEL OF EDUCATION:COLLEGE DIET: LOW FAT, LOW CHOLESTEROL, LOW SODIUM. LANGUAGE LANGUAGES SPOKEN:MALTESE NO DOMESTIC VIOLENCE DO YOU FEEL SAFE IN YOUR ENVIRONMENT?YES BMI CARE GOAL FOLLOW-UP ABOVE NORMAL BMI FOLLOW-UPDIETARY MANAGEMENT EDUCATION, GUIDANCE, AND COUNSELING RECREATIONAL DRUG USE DRUG USE?NO MARIJUANA IN PAST, NONE RECENTLY EXERCISE: NONE. 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 N/A HAS THE PATIENT BEEN EDUCATED REGARDING HIS/HER PLAN OF CARE?YES HAS THE PATIENT BEEN EDUCATED REGARDING PAIN, THE RISK FOR PAIN, THE IMPORTANCE OF EFFECTIVE PAIN MANAGEMENT, AND THE PAIN ASSESSMENT PROCESS?YES LATEX QUESTIONNAIRE LATEX ALLERGY : HAVE YOU EVER DEVELOPED ANY TYPE OF REACTION AFTER HANDLING LATEX PRODUCTS SUCH RUBBER GLOVES, CONDOMS, DIAPHRAGMS, BALLOONS, SOCKS, OR UNDERWEAR?NO LATEX ALLERGY : HAVE YOU EVER DEVELOPED ANY TYPE OF REACTION DURING OR AFTER DENTAL APPOINTMENT, VAGINAL/RECTAL EXAMINATION, SURGICAL PROCEDURE, OR ANY OTHER EXPOSURE?NO DATE ASKED : 09/11/2019 LATEX RISK : HAVE YOU EVER HAD ANY DIFFICULTY BREATHING OR HIVES AFTER EATING OR HANDLING ANY FRUITS, OR VEGETABLES; SUCH KIWI, BANANAS, STONE FRUITS, OR CHESTNUTSNO LATEX RISK : DO YOU HAVE A PREVIOUS PERSONAL HISTORY OF MORE THAN NINE SURGERIES, SPINA BIFIDA, OR REPEATED CATHERIZATIONS? NO LATEX RISK : ARE YOU FREQUENTLY EXPOSED TO LATEX PRODUCTS IN YOUR OCCUPATION?NO NO CAFFEINE CAFFEINE USE?NO ADVANCE DIRECTIVE ADVANCE DIRECTIVE DISCUSSED WITH PATIENT:YES PT STATES HE DOES NOT HAVE ANY ADVANCE DIRECTIVES AND HE DECLINES INFORMATION ON HCP AT THIS TIME. LATTER DAY [id number] LUTHERAN MARITAL STATUS: .. 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 SEXUAL HX HAD SEX IN THE LAST 12 MONTHS (VAGINAL, ORAL, OR ANAL)?YES WITHWOMEN ONLY USE PROTECTION?NO HAVE YOU EVER HAD AN STD?NO REVIEWED WITH PT 12/11/18 1320 BVREVIEWED WITH PATIENT 05/17/19 1419 NLJREVIEWED WITH PATIENT 10/05/19 1455 BV. HOSPITALIZATION/MAJOR DIAGNOSTIC PROCEDURE MULTIPLE HOSPITALIZATIONS FOR HIS HEART [facility] ATTACK/PLACEMENT OF ICD 10/23/2018-10/30/2018 REVIEW OF SYSTEMS REVIEWED BY: PROVIDER: DARCIE DOLAN . CONSTITUTIONAL: ANY CHANGE IN YOUR MEDICAL CONDITION? NO . CHILLS NO . FEVER NO . INFECTION: DO YOU HAVE NEW INFECTIONS? YES,SINUS INFECTION,URI . DO YOU HAVE HISTORY OF MRSA? NO . MUSCULOSKELETAL: ANY NEW PATTERNS OF PAIN OR NUMBNESS? YES, NUMBNESS AND PAIN GETTING WORSE . GENITOURINARY: ANY NEW CHANGE IN BLADDER CONTROL? YES,DYSURIA . IS THERE A CHANCE YOU COULD BE ? NO . HEMATOLOGY/LYMPH: DO YOU TAKE ANY BLOOD THINNERS? (FOR EXAMPLE- COUMADIN, PLAVIX, AGGRENOX, PLATEL, PRADAXA, OR XARELTO) YES, PRADAXA . WHEN WAS YOUR LAST DOSE? DATE: TIME: . NEUROLOGY: HAVE YOU FALLEN IN THE PAST 12 MONTHS? NO . ANY NEW EXTREMITY NUMBNESS OR WEAKNESS? YES,BILATERAL HANDS . CARDIOLOGY: DO YOU HAVE A PACEMAKER OR DEFIBRILLATOR? YES, PACEMAKER . RESPIRATORY: HAVE YOU BEEN SICK IN THE PAST WEEK? YES, SINUSITIS RESOLVING . FEVER NO . FLU LIKE SYMPTOMS? NO . COUGH NO, RESOLVED . INTEGUMENTARY: DO YOU HAVE ANY RASHES OR OPEN SORES? NO . ALLERGIC/IMMUNO: ARE YOU ALLERGIC TO IV DYE? NO . ANY NEW ALLERGIES? NO . PSYCHIATRIC: DO YOU HAVE THOUGHTS OF HURTING YOURSELF OR SOMEONE ELSE? NO . ARE YOU ABUSED, NEGLECTED, OR IN AN UNSAFE ENVIRONMENT? NO . ENDOCRINOLOGY: ARE YOU DIABETIC? NO . OTHER: DO YOU NEED ANY PRESCRIPTIONS? YES, HAVE TO DISCUSS . IF YES, PLEASE LIST: ____ . ANY NEW PROBLEMS WITH YOUR MEDICATIONS? NO . WHEN DID YOU LAST EAT? ____ . WHEN DID YOU LAST DRINK? ____ . WHAT DID YOU LAST DRINK? ____ . NAME OF PERSON DRIVING YOU HOME? ____ . DO YOU HAVE ANY OTHER QUESTIONS OR CONCERNS YES, CHANGE PAIN MEDS TO STRONGER . VITAL SIGNS WT 323 LBS, HT 72 IN, BMI 43.80 INDEX, BP 125/71 MM HG, HR 83 /MIN, RR 18 /MIN, TEMP 97.1 F, OXYGEN SAT % 96%, SAFE IN ENV? (Y/N) YES, REVIEWED BY: GARRETT VERDIN LPN. EXAMINATION GENERAL EXAMINATION: GENERALNO ACUTE DISTRESS, WELL NOURISHED AND HYDRATED. PSYCHAPPROPRIATE MOOD AND AFFECT . LUNGS:CLEAR TO AUSCULTATION BILATERALLY, NO WHEEZES, RHONCHI, RALES. HEART:NO MURMURS, REGULAR RATE AND RHYTHM. ASSESSMENTS SACROILIITIS, NOT ELSEWHERE CLASSIFIED - M46.1 (PRIMARY) TREATMENT SACROILIITIS, NOT ELSEWHERE CLASSIFIED STOP NORCO TABLET, 10-325 MG, 1-2 TABLET NEEDED, ORALLY, EVERY 6 HRS MDD=4 START OXYCODONE-ACETAMINOPHEN TABLET, 5-325 MG, 1 TABLET NEEDED, ORALLY, EVERY 8 HRS, 30 DAYS, 90 TABLET CLINICAL NOTES: 59-YEAR-OLD MALE IN FOR POST SIJ FOLLOW-UP. GIVEN PRESENTING SYMPTOMS AND RESULTS PHYSICAL EXAMINATION RECOMMENDED STOPPING NORCO AND STARTING OXYCODONE 5/325 MG 1 TABLET 3 TIMES A DAY NEEDED. PATIENT DOES HAVE AN UPCOMING APPOINTMENT WITH [facility] AND THEY WILL BE MANAGING HIS MEDICATIONS THEREAFTER. PATIENT HAS EXPRESSED UNDERSTANDING OF AND WAS IN AGREEMENT WITH TREATMENT PLAN. GIVEN TIME TO ASK QUESTIONS AND EXPRESS CONCERNS., ISTOP REGISTRY REVIEWED AND DEMONSTRATES COMPLLIANCE. (REF # [id number] ) BRINGS IN MEDICATIONS WHICH IS APPROPRIATE FOR WHAT WAS DISPENSED. RECENT URINE TOXICOLOGY REVIEWED. NO UNAUTHORIZED MEDICATIONS. NO ILLICIT SUBSTANCES AND PRESCRIBED MEDICATIONS WERE PRESENT. OTHERS NOTES: OXYCODONE MATERIAL WAS PRINTED. PROCEDURE CODES FA211 ESTABILISHED PATIENT [facility] CHARGE DISPOSITION & COMMUNICATION FOLLOW UP NEEDED (REASON: SACROILIITIS) ELECTRONICALLY SIGNED BY RYLEE OROURKE ON 11/29/2019 AT 08:47 AM EST DISCLAIMER : THIS IS A VISIT SUMMARY EXTRACTED FROM THE [employer] CHART. IT IS NOT A COPY OF THE [employer] PROGRESS NOTE. ALISHA
== END ==
LOC: M PAIN 14:15
PROVIDERS: ATTEND Family Medicine
DX: M46.1 Sacroiliitis, not elsewhere classified (principal)

== ENCOUNTER → 2020-08-14 | Outpatient (REF) | payer MEDICARE ==
[2020-08-14 12:47] LABS: ALBUMIN 3.9 GM/DL (3.2-5.2); BILIRUBIN,TOTAL 0.6 MG/DL (0.2-1.0); CALCIUM LEVEL 9.3 MG/DL (8.8-10.2); CHOLESTEROL RISK RATIO 5.514 (<5); CREATININE FOR GFR 2.29 MG/DL (0.70-1.30); FREE T4 1.05 NG/DL (0.76-1.46); GLOMERULAR FILTRATION RATE 31.2 (>49); MAGNESIUM LEVEL 1.9 MG/DL (1.8-2.4); THYROID STIMULATING HORMONE 2.7 uIU/ML (0.358-3.740); TOTAL PROTEIN 7.4 GM/DL (6.4-8.2); URIC ACID 8.1 MG/DL (3.5-7.2)
[2020-08-14 13:02] LABS: HEMOGLOBIN A1c 5.8 %
== END ==
LOC: M SFHCCLAY 09:06
PROVIDERS: ATTEND Family Medicine
DX: I48.91 Unspecified atrial fibrillation (principal); I47.2 Ventricular tachycardia; M54.12 Radiculopathy, cervical region; M10.9 Gout, unspecified; Z79.899 Other long term (current) drug therapy

== ENCOUNTER → 2020-12-08 | Outpatient (REF) | payer MEDICARE ==
[2020-12-08 11:39] LABS: HEMATOCRIT 42.3 % (42.0-52.0); HEMOGLOBIN 14.1 g/dl (13.5-17.5); MEAN CORPUSCULAR HEMOGLOBIN 32.7 pg (27.0-33.0); MEAN CORPUSCULAR HGB CONC 33.3 g/dl (32.0-36.5); MEAN CORPUSCULAR VOLUME 98.1 fl (80.0-96.0); PLATELET COUNT, AUTOMATED 249 10^3/uL (150-450); RED BLOOD COUNT 4.31 10^6/uL (4.30-6.10); WHITE BLOOD COUNT 12.2 10^3/uL (4.0-10.0)
[2020-12-08 11:50] LABS: APPEARANCE, URINE CLEAR (CLEAR); BACTERIA, URINE AUTO NEGATIVE (NEGATIVE); BILIRUBIN, URINE AUTO NEGATIVE (NEGATIVE); BLOOD, URINE BLOOD NEGATIVE (NEGATIVE); COLOR, URINE YELLOW (YELLOW); GLUCOSE, URINE (UA) AUTO NEGATIVE (NEGATIVE); KETONE, URINE AUTO NEGATIVE (NEGATIVE); LEUKOCYTE ESTERASE, URINE AUTO NEGATIVE (NEGATIVE); MUCUS, URINE SMALL (NEGATIVE); NITRITE, URINE AUTO NEGATIVE (NEGATIVE); PROTEIN, URINE AUTO NEGATIVE (NEGATIVE); RBC, URINE AUTO 0 /HPF (0-3); SPECIFIC GRAVITY URINE AUTO 1.013 (1.002-1.035); SQUAMOUS EPITHELIAL CELL UR AU 0 /HPF (0-6); UROBILINOGEN, URINE AUTO 0.2 mg/dL (0.0-2.0); WBC, URINE AUTO 1 /HPF (0-3)
[2020-12-08 12:05] LABS: INR 1.19; PROTHROMBIN TIME 15.4 SECONDS (12.5-14.3)
[2020-12-08 12:07] LABS: PARTIAL THROMBOPLASTIN TIME 46.4 SECONDS (24.2-38.5)
[2020-12-08 12:18] LABS: CALCIUM LEVEL 9.8 MG/DL (8.8-10.2); CREATININE FOR GFR 2.54 MG/DL (0.70-1.30); GLOMERULAR FILTRATION RATE 27.7 (>49); URIC ACID 6.3 MG/DL (3.5-7.2)
== END ==
LOC: M SFHCCLAY 08:15
PROVIDERS: ATTEND Family Medicine
DX: I12.9 Hypertensive chronic kidney disease with stage 1 through stage 4 chronic kidney disease, or unspecified chronic kidney disease (principal); Z82.49 Family history of ischemic heart disease and other diseases of the circulatory system; E78.5 Hyperlipidemia, unspecified; I48.91 Unspecified atrial fibrillation; M16.11 Unilateral primary osteoarthritis, right hip; N18.4 Chronic kidney disease, stage 4 (severe)

== ENCOUNTER → 2020-12-22 | Outpatient (CLI) | payer MEDICARE | LOC: M LABSMTC 11:37 | PROVIDERS: ATTEND Anesthesiology | DX: Z01.812 Encounter for preprocedural laboratory examination (principal); Z20.822 Contact with and (suspected) exposure to COVID-19 ==

== ENCOUNTER 2020-12-26 08:59 | Day surgery (SDC) | payer MEDICARE ==
[~2020-12-26] VITALS: Ht 185.4 cm; Wt 126.6 kg
[~2020-12-26 08:59] MED LIST changes: +AMIO200T3 PO; +CARD120T4 PO; +CYAN500T14 PO; +D31000TA2 PO; +FOLI1TAB11 PO; +MAGN400T3 PO; +METO200T28 PO; +METO25TA PO; +NS 1,000 ML IV ONE; +OXYC10TA12 PO; +RANO500T7 PO; +SPIR-10 PO
[2020-12-26] MEDS ORDERED: propofoL 200 MG/20 ML VIAL As Ordered ONE (09:36)
[2020-12-26] MEDS ORDERED: LIDOCAINE 2% 100MG/5ML SDV (FOR ANES.) As Ordered ONE ×2 (09:36→10:19)
--- NOTE | 2020-12-26 10:33 | ROOR ---
Patient Name: Brian Ayala Procedure Date: 12/26/2020 9:59 AM Date of : 1960 Age: 60 Room: [facility] Gender: Male Note Status: Finalized Procedure: Total Colonoscopy to Cecum + Cold Snare Polypectomy + Hemoclips Indications: Positive Cologuard test Providers: Joey Corona MD Referring MD: Chilo Vega MD Requesting Provider: Medicines: Monitored Anesthesia Care Complications: No immediate complications. Procedure: Pre-Anesthesia Assessment: - The heart rate, respiratory rate, oxygen saturations, blood pressure, adequacy of pulmonary ventilation, and response to care were monitored throughout the procedure. The Colonoscope was introduced through the anus and advanced to the cecum, identified by appendiceal orifice and ileocecal valve. The colonoscopy was performed without difficulty. The patient tolerated the procedure well. The quality of the bowel preparation was good. Findings: The perianal and digital rectal examinations were normal. Non-bleeding internal hemorrhoids were found during retroflexion. The hemorrhoids were small and Grade I (internal hemorrhoids that do not prolapse). Multiple small and large-mouthed diverticula were found in the recto-sigmoid colon, sigmoid colon and descending colon. A small polyp was found at 60 cm proximal to the anus. The polyp was sessile. The polyp was removed with a cold snare. Resection and retrieval were complete. To prevent bleeding after the polypectomy, two hemostatic clips were successfully placed (MR conditional). There was no bleeding at the end of the procedure. The exam was otherwise without abnormality on direct and retroflexion views. Impression: - Non-bleeding internal hemorrhoids. - Diverticulosis in the recto-sigmoid colon, in the sigmoid colon and in the descending colon. - One small polyp at 60 cm proximal to the anus, removed with a cold snare. Resected and retrieved. Clips (MR conditional) were placed. - The examination was otherwise normal on direct and retroflexion views. - The exam was otherwise normal to the cecum. Recommendation: - Patient has a contact number available for emergencies. The signs and symptoms of potential delayed complications were discussed with the patient. Return to normal activities tomorrow. Written discharge instructions were provided to the patient. - High fiber diet. - Discharge patient to home. - Resume Pradaxa (dabigatran) at prior dose tomorrow. - Await pathology results. - Telephone GI clinic for pathology results in 1 week. - Repeat colonoscopy in 5 years for surveillance based on pathology results. - Return to referring physician. - The findings and recommendations were discussed with the patient. Procedure Code(s): --- Professional --- 42802, Colonoscopy, flexible; with removal of tumor(s), polyp(s), or other lesion(s) by snare technique Diagnosis Code(s): --- Professional --- K64.0, First degree hemorrhoids K63.5, Polyp of colon R19.5, Other fecal abnormalities K57.30, Diverticulosis of large intestine without perforation or abscess without bleeding CPT copyright 2019 [employer]. All rights reserved. The codes documented in this report are preliminary and upon professional fee coder review may be revised to meet current compliance requirements. Joey Corona MD Joey Corona MD 12/26/2020 10:33:17 AM Electronically signed by Joey Corona MD Number of Addenda: 0 Note Initiated On: 12/26/2020 9:59 AM Estimated Blood Loss: Estimated blood loss: none.
[2020-12-26 11:00] VITALS: BP 103/59
== END 2020-12-26 11:02 | disposition home or self-care (01) ==
LOC: M OPP 08:59
PROVIDERS: ATTEND Internal Medicine Gastroenterology
DX: D12.6 Benign neoplasm of colon, unspecified (principal); K57.30 Diverticulosis of large intestine without perforation or abscess without bleeding; K64.8 Other hemorrhoids; R19.5 Other fecal abnormalities; I10 Essential (primary) hypertension; Z79.899 Other long term (current) drug therapy; Z87.891 Personal history of nicotine dependence; Z88.8 Allergy status to other drugs, medicaments and biological substances; Z95.5 Presence of coronary angioplasty implant and graft

== ENCOUNTER → 2021-02-12 | Outpatient (REF) | payer MEDICARE ==
[~2021-02-12] MED LIST changes: -NS 1,000 ML IV ONE
[2021-02-12 17:47] LABS: BASO # 0.1 10^3/uL (0.0-0.2); EOS # 0.3 10^3/uL (0.0-0.5); EOS % 3.7 % (0.0-3.0); HEMATOCRIT 36.3 % (42.0-52.0); HEMOGLOBIN 11.8 g/dl (13.5-17.5); LYMPH # 1.2 10^3/uL (1.5-5.0); LYMPH % 13.3 % (24.0-44.0); MEAN CORPUSCULAR HEMOGLOBIN 31.4 pg (27.0-33.0); MEAN CORPUSCULAR HGB CONC 32.5 g/dl (32.0-36.5); MEAN CORPUSCULAR VOLUME 96.5 fl (80.0-96.0); MONO # 0.8 10^3/uL (0.0-0.8); MONO % 8.7 % (2.0-8.0); NEUTROPHILS # 6.6 10^3/uL (1.5-8.5); NEUTROPHILS % 73.1 % (36.0-66.0); PLATELET COUNT, AUTOMATED 234 10^3/uL (150-450); RED BLOOD COUNT 3.76 10^6/uL (4.30-6.10)
[2021-02-12 18:13] LABS: CALCIUM LEVEL 9.6 MG/DL (8.8-10.2); CREATININE FOR GFR 2.29 MG/DL (0.70-1.30); GLOMERULAR FILTRATION RATE 31.2 (>49); POTASSIUM SERUM 3.8 MEQ/L (3.5-5.1)
== END ==
LOC: M SFHCCLAY 13:54
PROVIDERS: ATTEND Family Medicine
DX: N18.4 Chronic kidney disease, stage 4 (severe) (principal)

== ENCOUNTER → 2021-05-26 | Outpatient (REF) | payer MEDICARE ==
[2021-05-26 19:06] LABS: BASO # 0.1 10^3/uL (0.0-0.2); BASO % 0.5 % (0.0-1.0); EOS # 0.5 10^3/uL (0.0-0.5); EOS % 3.3 % (0.0-3.0); HEMATOCRIT 36.2 % (42.0-52.0); HEMOGLOBIN 12.1 g/dl (13.5-17.5); LYMPH # 2.3 10^3/uL (1.5-5.0); LYMPH % 14.8 % (24.0-44.0); MEAN CORPUSCULAR HEMOGLOBIN 32.2 pg (27.0-33.0); MEAN CORPUSCULAR HGB CONC 33.4 g/dl (32.0-36.5); MEAN CORPUSCULAR VOLUME 96.3 fl (80.0-96.0); MONO # 1.7 10^3/uL (0.0-0.8); MONO % 11.1 % (2.0-8.0); NEUTROPHILS # 10.5 10^3/uL (1.5-8.5); NEUTROPHILS % 68.8 % (36.0-66.0); PLATELET COUNT, AUTOMATED 303 10^3/uL (150-450); RED BLOOD COUNT 3.76 10^6/uL (4.30-6.10)
[2021-05-26 19:37] LABS: WHITE BLOOD COUNT 15.3 10^3/uL (4.0-10.0)
[2021-05-26 19:39] LABS: ALBUMIN 3.8 GM/DL (3.2-5.2); ALT/SGPT 28 U/L (12-78); BILIRUBIN,TOTAL 0.7 MG/DL (0.2-1.0); BLOOD UREA NITROGEN 65 MG/DL (7-18); CALCIUM LEVEL 9.4 MG/DL (8.8-10.2); CARBON DIOXIDE LEVEL 33 MEQ/L (21-32); CHLORIDE LEVEL 96 MEQ/L (98-107); CREATININE FOR GFR 1.94 MG/DL (0.70-1.30); GLOMERULAR FILTRATION RATE 37.6 (>49); GLUCOSE, FASTING 95 MG/DL (70-100); POTASSIUM SERUM 4.2 MEQ/L (3.5-5.1); RHEUMATOID FACTOR QUANT < 10.0 IU/ML (<15.0); SODIUM LEVEL 136 MEQ/L (136-145); TOTAL PROTEIN 7.2 GM/DL (6.4-8.2)
== END ==
LOC: M SFHCCLAY 10:43
PROVIDERS: ATTEND Physician Assistant
DX: M79.89 Other specified soft tissue disorders (principal)

== ENCOUNTER → 2021-05-26 | Outpatient (CLI) | payer MEDICARE ==
--- NOTE | 2021-05-26 11:03 | REP ---
INDICATION: M79.89 SWELLING OF RIGHT LOWER EXTREMITY COMPARISON: None. TECHNIQUE: Five views right foot. FINDINGS: The base of the 1st metatarsal demonstrates moderate to severe lateral and dorsal subluxation with respect to the adjacent tarsal bones. There is dislocation of the proximal 2nd through 5th metatarsals laterally and dorsally with respect to the tarsal bones. There are multiple chip fractures along the distal margins of the tarsal bones and proximal margins of the metatarsals. There is diffuse soft tissue swelling of the foot. There is a small accessory ossicle along the medial margin of the navicular bone. IMPRESSION: The base of the 1st metatarsal demonstrates moderate to severe lateral and dorsal subluxation with respect to the adjacent tarsal bones. There is dislocation of the proximal 2nd through 5th metatarsals laterally and dorsally with respect to the tarsal bones. There are multiple chip fractures along the distal margins of the tarsal bones and proximal margins of the metatarsals. <Electronically signed by Jordin Irwin > 05/26/21 1058
== END ==
LOC: M CLY 09:59
PROVIDERS: ATTEND Physician Assistant
DX: S93.331A Other subluxation of right foot, initial encounter (principal); S92.201A Fracture of unspecified tarsal bone(s) of right foot, initial encounter for closed fracture; M79.89 Other specified soft tissue disorders; X58.XXXA Exposure to other specified factors, initial encounter; Y92.9 Unspecified place or not applicable; Y99.9 Unspecified external cause status

== ENCOUNTER → 2021-09-30 | Outpatient (REF) ==
[~2021-09-30] MED LIST changes: -MAGN400T3 PO; +MAGN400T33 PO
== END ==
LOC: M LABSMTC 09:26
PROVIDERS: ATTEND Pediatrics
DX: Z11.52 Encounter for screening for COVID-19 (principal)

== ENCOUNTER → 2021-11-04 | Outpatient (CLI) | payer MEDICARE ==
[~2021-11-04] MED LIST changes: -AMIO200T3 PO; +AMIO200T49 PO
== END ==
LOC: M CLY 13:50
PROVIDERS: ATTEND Family Medicine
DX: I51.7 Cardiomegaly (principal); J40 Bronchitis, not specified as acute or chronic; Z95.0 Presence of cardiac pacemaker

== ENCOUNTER → 2022-03-03 | Outpatient (REF) | payer MEDICARE ==
[~2022-03-03] MED LIST changes: -D31000TA2 PO; +VITA100093 PO
[2022-03-03 16:03] LABS: HEMATOCRIT 39.6 % (42.0-52.0); HEMOGLOBIN 13.2 g/dl (13.5-17.5); MEAN CORPUSCULAR HEMOGLOBIN 29.1 pg (27.0-33.0); MEAN CORPUSCULAR HGB CONC 33.3 g/dl (32.0-36.5); MEAN CORPUSCULAR VOLUME 87.2 fl (80.0-96.0); PLATELET COUNT, AUTOMATED 232 10^3/uL (150-450); RED BLOOD COUNT 4.54 10^6/uL (4.30-6.10); WHITE BLOOD COUNT 9.4 10^3/uL (4.0-10.0)
[2022-03-03 16:37] LABS: HEMOGLOBIN A1c 5.3 %
[2022-03-03 16:44] LABS: ALT/SGPT 15 U/L (12-78); BILIRUBIN,TOTAL 1.6 MG/DL (0.2-1.0); BLOOD UREA NITROGEN 18 MG/DL (7-18); CALCIUM LEVEL 9.5 MG/DL (8.8-10.2); CARBON DIOXIDE LEVEL 26 MEQ/L (21-32); CHLORIDE LEVEL 103 MEQ/L (98-107); CHOLESTEROL LEVEL 139 MG/DL (<200); CHOLESTEROL RISK RATIO 3.756 (<5); CREATININE FOR GFR 1.62 MG/DL (0.70-1.30); GLOMERULAR FILTRATION RATE 46.2 (>49); GLUCOSE, FASTING 81 MG/DL (70-100); HDL CHOLESTEROL 37 MG/DL (>40); LDL CHOLESTEROL 78 MG/DL (<100); MAGNESIUM LEVEL 1.8 MG/DL (1.8-2.4); NON-HDL-C 102 MG/DL; POTASSIUM SERUM 4.2 MEQ/L (3.5-5.1); SODIUM LEVEL 138 MEQ/L (136-145); THYROID STIMULATING HORMONE < 0.005 uIU/ML (0.358-3.740); TOTAL PROTEIN 7.5 GM/DL (6.4-8.2); TRIGLYCERIDES LEVEL 120 MG/DL (<150)
== END ==
LOC: M SFHCCLAY 13:26
PROVIDERS: ATTEND Physician Assistant
DX: R79.89 Other specified abnormal findings of blood chemistry (principal); I11.0 Hypertensive heart disease with heart failure

== ENCOUNTER → 2022-05-27 | Outpatient (REF) | payer MEDICARE ==
[2022-05-27 18:59] LABS: CALCIUM LEVEL 9.5 MG/DL (8.8-10.2); CREATININE FOR GFR 1.82 MG/DL (0.70-1.30); GLOMERULAR FILTRATION RATE 40.4 (>49); THYROID STIMULATING HORMONE 2.87 uIU/ML (0.358-3.740)
== END ==
LOC: M LABDRAWC 17:33
PROVIDERS: ATTEND Internal Medicine Cardiovascular Disease
DX: I48.91 Unspecified atrial fibrillation (principal)

== ENCOUNTER → 2022-05-27 | Outpatient (REF) | payer MEDICARE ==
[2022-05-27 18:17] LABS: FREE T4 1.25 NG/DL (0.76-1.46); THYROID STIMULATING HORMONE 2.68 uIU/ML (0.358-3.740)
== END ==
LOC: M SFHCCLAY 10:52
PROVIDERS: ATTEND Family Medicine
DX: R79.89 Other specified abnormal findings of blood chemistry (principal); Z79.899 Other long term (current) drug therapy

== ENCOUNTER → 2022-06-03 | Outpatient (REF) | payer MEDICARE ==
[2022-06-03 18:40] LABS: CALCIUM LEVEL 9.4 MG/DL (8.8-10.2); CREATININE FOR GFR 1.72 MG/DL (0.70-1.30); GLOMERULAR FILTRATION RATE 43.1 (>49); POTASSIUM SERUM 3.3 MEQ/L (3.5-5.1)
== END ==
LOC: M LABDRAWC 16:55
PROVIDERS: ATTEND Internal Medicine Cardiovascular Disease
DX: I42.0 Dilated cardiomyopathy (principal); E87.1 Hypo-osmolality and hyponatremia

== ENCOUNTER → 2022-07-24 | Outpatient (CLI) | payer MEDICARE | LOC: M SLEEP 20:00 | PROVIDERS: ATTEND Nurse Practitioner Adult Health | DX: G47.33 Obstructive sleep apnea (adult) (pediatric) (principal) ==

== ENCOUNTER → 2022-09-01 | Outpatient (CLI) | payer MEDICARE | LOC: M CARPUL 12:57 | PROVIDERS: ATTEND Nurse Practitioner Adult Health | DX: R06.02 Shortness of breath (principal) ==

== ENCOUNTER → 2022-09-03 | Outpatient (REF) | payer MEDICARE ==
[2022-09-03 18:53] LABS: CALCIUM LEVEL 9.8 MG/DL (8.3-10.6); CREATININE FOR GFR 2.4 MG/DL (0.70-1.30); GLOMERULAR FILTRATION RATE 29.3 (>49); POTASSIUM SERUM 3.3 MMOL/L (3.5-5.1)
== END ==
LOC: M LABDRAWC 17:32
PROVIDERS: ATTEND Nurse Practitioner Family
DX: I42.0 Dilated cardiomyopathy (principal)

== ENCOUNTER → 2022-09-30 | Outpatient (REF) | payer MEDICARE ==
[2022-09-30 11:33] LABS: INR 2.59; PROTHROMBIN TIME 28.2 SECONDS (12.5-14.5)
== END ==
LOC: M LABDRAWC 11:07
PROVIDERS: ATTEND Physician Assistant
DX: I42.0 Dilated cardiomyopathy (principal)

== ENCOUNTER → 2022-10-04 | Outpatient (REF) | payer MEDICARE ==
[2022-10-04 18:25] LABS: INR 2.26; PROTHROMBIN TIME 25.3 SECONDS (12.5-14.5)
== END ==
LOC: M LABDRAWC 16:47
PROVIDERS: ATTEND Physician Assistant
DX: I42.0 Dilated cardiomyopathy (principal)

== ENCOUNTER → 2022-10-13 | Outpatient (REF) | payer MEDICARE ==
[2022-10-13 12:13] LABS: INR 1.53; PROTHROMBIN TIME 18.7 SECONDS (12.5-14.5)
== END ==
LOC: M LABDRAWC 11:25
PROVIDERS: ATTEND Internal Medicine Cardiovascular Disease
DX: I48.20 Chronic atrial fibrillation, unspecified (principal)

== ENCOUNTER → 2022-10-18 | Outpatient (REF) | payer MEDICARE ==
[2022-10-18 18:12] LABS: MAGNESIUM LEVEL 1.8 MG/DL (1.8-2.4)
[2022-10-18 18:14] LABS: CALCIUM LEVEL 8.9 MG/DL (8.3-10.6); CREATININE FOR GFR 1.54 MG/DL (0.70-1.30); POTASSIUM SERUM 3.5 MMOL/L (3.5-5.1)
== END ==
LOC: M SFHCCLAY 14:14
PROVIDERS: ATTEND Family Medicine
DX: I48.91 Unspecified atrial fibrillation (principal); Z95.2 Presence of prosthetic heart valve

== ENCOUNTER → 2022-10-28 | Outpatient (REF) | payer MEDICARE ==
[2022-10-28 12:18] LABS: CALCIUM LEVEL 8.9 MG/DL (8.3-10.6); CREATININE FOR GFR 1.53 MG/DL (0.70-1.30); GLOMERULAR FILTRATION RATE 49.3 (>49)
== END ==
LOC: M LABDRAWC 11:20
PROVIDERS: ATTEND Nurse Practitioner Family
DX: I42.0 Dilated cardiomyopathy (principal)

== ENCOUNTER → 2022-11-02 | Outpatient (REF) | payer MEDICARE ==
[2022-11-02 18:13] LABS: CALCIUM LEVEL 9.4 MG/DL (8.3-10.6); CREATININE FOR GFR 1.88 MG/DL (0.70-1.30); GLOMERULAR FILTRATION RATE 38.9 (>49); POTASSIUM SERUM 3.4 MMOL/L (3.5-5.1)
== END ==
LOC: M LABDRAWC 17:01
PROVIDERS: ATTEND Internal Medicine Cardiovascular Disease
DX: I50.43 Acute on chronic combined systolic (congestive) and diastolic (congestive) heart failure (principal)

== ENCOUNTER → 2022-11-19 | Outpatient (REF) | payer MEDICARE ==
[2022-11-19 13:31] LABS: CALCIUM LEVEL 8.9 MG/DL (8.3-10.6); CREATININE FOR GFR 1.54 MG/DL (0.70-1.30); POTASSIUM SERUM 3.5 MMOL/L (3.5-5.1)
== END ==
LOC: M LABDRAWC 11:48
PROVIDERS: ATTEND Internal Medicine Cardiovascular Disease
DX: I50.43 Acute on chronic combined systolic (congestive) and diastolic (congestive) heart failure (principal)

== ENCOUNTER → 2022-12-14 | Outpatient (REF) | payer MEDICARE | LOC: M SFHCCLAY 15:50 | PROVIDERS: ATTEND Family Medicine | DX: I50.22 Chronic systolic (congestive) heart failure (principal); E03.9 Hypothyroidism, unspecified ==

== ENCOUNTER → 2022-12-21 | Outpatient (CLI) | payer MEDICARE | LOC: M LABSMTC 09:57 | PROVIDERS: ATTEND Anesthesiology | DX: Z01.812 Encounter for preprocedural laboratory examination (principal); Z11.52 Encounter for screening for COVID-19 ==

== ENCOUNTER 2022-12-31 10:55 | Inpatient (IN) | payer MEDICARE ==
[~2022-12-31] VITALS: Ht 185.4 cm; Wt 95.4 kg
[2022-12-31] VITALS (7 sets, daily range): BP systolic 108–124; BP diastolic 68–78; O2SAT 96–99
[2022-12-31 11:37] LABS: VENOUS BASE EXCESS 2.9 (-2.0-2.0); VENOUS HCO3 28.7 MEQ/L (23.0-27.0); VENOUS O2 SATURATION 66.3 % (60.0-80.0); VENOUS PARTIAL PRESSURE CO2 48.7 mmHg (38.0-50.0); VENOUS PH 7.388 UNITS (7.330-7.430); VENOUS STANDARD HCO3 26.3 MEQ/L; VENOUS TOTAL CO2 30.2 MEQ/L (24.0-28.0)
[2022-12-31 11:41] LABS: BASO # 0.1 10^3/uL (0.0-0.2); BASO % 0.7 % (0.0-1.0); EOS % 0.4 % (0.0-3.0); HEMATOCRIT 39.2 % (42.0-52.0); HEMOGLOBIN 12.9 g/dl (13.5-17.5); LYMPH # 0.8 10^3/uL (1.5-5.0); LYMPH % 7.7 % (24.0-44.0); MEAN CORPUSCULAR HEMOGLOBIN 31.2 pg (27.0-33.0); MEAN CORPUSCULAR HGB CONC 32.9 g/dl (32.0-36.5); MEAN CORPUSCULAR VOLUME 94.9 fl (80.0-96.0); MONO # 1.2 10^3/uL (0.0-0.8); MONO % 10.7 % (2.0-8.0); NEUTROPHILS # 8.6 10^3/uL (1.5-8.5); NEUTROPHILS % 79.9 % (36.0-66.0); PLATELET COUNT, AUTOMATED 267 10^3/uL (150-450); RED BLOOD COUNT 4.13 10^6/uL (4.30-6.10); WHITE BLOOD COUNT 10.8 10^3/uL (4.0-10.0)
[2022-12-31 12:09] LABS: CK-MB VALUE MASS 2.5 NG/ML (<3.6)
[2022-12-31 12:11] LABS: MB/CK RELATIVE INDEX 2.45 (< OR =4)
[2022-12-31 12:12] LABS: ALBUMIN 4.3 G/DL (3.2-5.2); BILIRUBIN,DIRECT 0.9 MG/DL (<0.4); BILIRUBIN,TOTAL 1.9 MG/DL (0.3-1.2); CALCIUM LEVEL 9.8 MG/DL (8.3-10.6); CREATININE FOR GFR 1.74 MG/DL (0.70-1.30); GLOMERULAR FILTRATION RATE 42.5 (>49); POTASSIUM SERUM 3.7 MMOL/L (3.5-5.1); TOTAL PROTEIN 7.8 G/DL (5.7-8.2)
[2022-12-31 12:13] LABS: THYROXINE (T4) 8.3 UG/DL (4.5-10.9)
[2022-12-31 12:14] LABS: THYROID STIMULATING HORMONE 3.981 uIU/ML (0.55-4.78)
[2022-12-31] MEDS ORDERED: AZITHROMYCIN INJ 500 MG, VIAL MATE ADAPTER 1 EACH in D5W 250 ML IV ONE (12:20)
[2022-12-31] MEDS ORDERED: cefTRIAXone SOD 1 GM in D5W MINI-BAG PLUS 50 ML IV ONE (12:20)
[2022-12-31] MEDS ORDERED: ISOVUE-370 76% 100ML VIAL As Ordered ONE (12:42)
[2022-12-31 13:00] LABS: CK-MB VALUE MASS 2.2 NG/ML (<3.6)
[2022-12-31 13:11] LABS: MB/CK RELATIVE INDEX 2.34 (< OR =4)
[2022-12-31 13:28] LABS: INR 3.11; PROTHROMBIN TIME 32.5 SECONDS (12.5-14.5)
[2022-12-31 13:29] LABS: PARTIAL THROMBOPLASTIN TIME 40.9 SECONDS (24.8-34.2)
[2022-12-31] MEDS ORDERED: FUROSEMIDE 20MG/2ML VIAL IV ONE (14:05)
[2022-12-31] MEDS ORDERED: LEVO25TA5 PO (15:07)
[2022-12-31] MEDS ORDERED: OXYC10TA12 PO (15:07)
[2022-12-31] MEDS ORDERED: DOCU100C16 PO (15:07)
[2022-12-31] MEDS ORDERED: WARF-18 PO ×2 (15:07)
[2022-12-31] MEDS ORDERED: ACET500T15 PO (15:07)
[2022-12-31] MEDS ORDERED: ALBU8.5H INH (15:07)
[2022-12-31] MEDS ORDERED: FLUT1BLS5 INH (15:07)
[2022-12-31] MEDS ORDERED: TOPR25TA PO (15:07)
[2022-12-31] MEDS ORDERED: MORP-69 PO (15:07)
[2022-12-31] MEDS ORDERED: ASPI-226 PO (15:07)
[2022-12-31] MEDS ORDERED: THERTAB21 PO (15:07)
[2022-12-31] MEDS ORDERED: MIRA3350 PO (15:07)
[2022-12-31] MEDS ORDERED: TORS100T PO (15:07)
[2022-12-31] MEDS ORDERED: FERR32TA PO (15:10)
[2022-12-31] MEDS ORDERED: HOME MED LIST COMPLETE! XX SCH (15:15)
[2022-12-31] MEDS ORDERED: MOM 30ML SUSPENSION UDC PO PRN (16:10)
[2022-12-31] MEDS: FUROSEMIDE 40MG/4ML VIAL IV SCH ×2 (18:21→22:38)
[2022-12-31] MEDS: WARFARIN SOD 2.5MG TAB PO SCH (18:22)
[2022-12-31] MEDS: ADVAIR HFA 115/21MCG INHALER INH SCH (19:18)
[2022-12-31 19:43] LABS: CALCIUM LEVEL 8.9 MG/DL (8.3-10.6); CREATININE FOR GFR 1.7 MG/DL (0.70-1.30); GLOMERULAR FILTRATION RATE 43.7 (>49); POTASSIUM SERUM 4.8 MMOL/L (3.5-5.1)
[2022-12-31] MEDS: oxyCODONE 5MG TAB PO SCH (20:08)
[2022-12-31] MEDS: DOCUSATE SODIUM 100MG CAPSULE PO SCH (20:09)
[2022-12-31] MEDS: FERROUS GLUCONATE 324 MG TAB PO SCH (20:09)
[2022-12-31] MEDS: ACETAMINOPHEN TAB 650MG DOSE (2X325MG) PO PRN (20:13)
[2022-12-31] MEDS: MORPHINE 15 MG SA TAB PO SCH (21:33)
[2023-01-01] VITALS (30 sets, daily range): BP systolic 103–124; BP diastolic 61–78; O2SAT 80–100
[2023-01-01] MEDS: FUROSEMIDE 40MG/4ML VIAL IV SCH ×2 (02:40→05:48)
[2023-01-01] MEDS: LEVOTHYROXINE 25MCG TABLET (0.025MG) PO SCH (05:49)
[2023-01-01 06:25] LABS: HEMATOCRIT 34.1 % (42.0-52.0); MEAN CORPUSCULAR HGB CONC 32.3 g/dl (32.0-36.5); MEAN CORPUSCULAR VOLUME 96.1 fl (80.0-96.0); PLATELET COUNT, AUTOMATED 239 10^3/uL (150-450); RED BLOOD COUNT 3.55 10^6/uL (4.30-6.10); WHITE BLOOD COUNT 11.8 10^3/uL (4.0-10.0)
[2023-01-01 06:42] LABS: INR 3.27; PROTHROMBIN TIME 33.8 SECONDS (12.5-14.5)
[2023-01-01 06:55] LABS: CALCIUM LEVEL 9.2 MG/DL (8.3-10.6); CREATININE FOR GFR 1.82 MG/DL (0.70-1.30); GLOMERULAR FILTRATION RATE 40.4 (>49); MAGNESIUM LEVEL 2.1 MG/DL (1.8-2.4); POTASSIUM SERUM 3.4 MMOL/L (3.5-5.1)
[2023-01-01] MEDS: ADVAIR HFA 115/21MCG INHALER INH SCH ×2 (08:39→19:47)
[2023-01-01] MEDS ORDERED: MIRALAX *UNIT DOSE* 17GM PACKET PO SCH (09:00)
[2023-01-01] MEDS ORDERED: SPIRONOLACTONE 12.5MG PER 1/2 TABLET PO SCH (09:00)
[2023-01-01] MEDS ORDERED: METOPROLOL SUCC *XL* 25MG TAB (TopROL *XL*) PO SCH (09:00)
[2023-01-01] MEDS: MAGNESIUM OXIDE 400MG TAB (MAG-OX) PO SCH (09:37)
[2023-01-01] MEDS: allopurinoL 100 MG TAB PO SCH (09:37)
[2023-01-01] MEDS: FERROUS GLUCONATE 324 MG TAB PO SCH ×2 (09:37→20:07)
[2023-01-01] MEDS: MULTIVITAMINS/MINERALS THERAP 1 TAB PO SCH (09:37)
[2023-01-01] MEDS: DOCUSATE SODIUM 100MG CAPSULE PO SCH ×2 (09:37→20:07)
[2023-01-01] MEDS: ASPIRIN 81MG ENTERIC TABLET PO SCH (09:37)
[2023-01-01] MEDS: FOLIC ACID 1MG TAB PO SCH (09:37)
[2023-01-01] MEDS: CYANOCOBALAMIN 500 MCG TAB PO SCH (09:37)
[2023-01-01] MEDS: VITAMIN D 1,000 INTERNATIONAL UNITS TABLET PO SCH (09:37)
[2023-01-01] MEDS: MORPHINE 15 MG SA TAB PO SCH ×2 (09:38→21:28)
[2023-01-01] MEDS: METOPROLOL SUCC *XL* 12.5MG PER 1/2 TAB (TopROL *XL*) PO SCH (09:38)
[2023-01-01] MEDS: oxyCODONE 5MG TAB PO SCH ×2 (09:39→20:06)
[2023-01-01] MEDS ORDERED: SENNA 8.6 MG TAB (SENOKOT) PO PRN (11:45)
[2023-01-01] MEDS: FUROSEMIDE 100MG/10ML VIAL IV SCH ×3 (13:16→23:32)
[2023-01-01] MEDS: POTASSIUM CHLORIDE 10MEQ SR TABLET PO SCH ×2 (13:17→20:06)
[2023-01-01] MEDS: **hydrALAZINE** 10 MG TAB PO SCH ×2 (18:24→20:06)
[2023-01-01] MEDS: DAPAGLIFLOZIN PROPANEDIOL 10MG TABLET (FARXIGA) PO SCH (18:24)
[2023-01-01] MEDS: WARFARIN SOD 2.5MG TAB PO SCH (18:24)
[2023-01-01] MEDS: ISOSORBIDE DIN (ISORDIL) 10MG TAB PO SCH ×2 (18:24→20:07)
[2023-01-01] MEDS: ALBUTEROL 90 MCG/ACT 8GM HFA INHALER INH PRN (19:48)
[2023-01-01] MEDS: MIRALAX *UNIT DOSE* 17GM PACKET PO SCH (20:16)
[2023-01-01] MEDS: ACETAMINOPHEN TAB 650MG DOSE (2X325MG) PO PRN (21:30)
[2023-01-02] VITALS (26 sets, daily range): BP systolic 109–139; BP diastolic 61–88; O2SAT 92–98
[2023-01-02] MEDS: FUROSEMIDE 100MG/10ML VIAL IV SCH ×3 (05:42→18:07)
[2023-01-02] MEDS: LEVOTHYROXINE 25MCG TABLET (0.025MG) PO SCH (05:42)
[2023-01-02 05:43] LABS: HEMATOCRIT 31.3 % (42.0-52.0); MEAN CORPUSCULAR HEMOGLOBIN 30.5 pg (27.0-33.0); MEAN CORPUSCULAR HGB CONC 31.9 g/dl (32.0-36.5); MEAN CORPUSCULAR VOLUME 95.4 fl (80.0-96.0); PLATELET COUNT, AUTOMATED 227 10^3/uL (150-450); RED BLOOD COUNT 3.28 10^6/uL (4.30-6.10); WHITE BLOOD COUNT 12.5 10^3/uL (4.0-10.0)
[2023-01-02 05:54] LABS: INR 3.82; PROTHROMBIN TIME 38.2 SECONDS (12.5-14.5)
[2023-01-02 06:07] LABS: CALCIUM LEVEL 8.5 MG/DL (8.3-10.6); CREATININE FOR GFR 1.8 MG/DL (0.70-1.30); GLOMERULAR FILTRATION RATE 40.9 (>49); MAGNESIUM LEVEL 2.2 MG/DL (1.8-2.4); POTASSIUM SERUM 4.1 MMOL/L (3.5-5.1)
[2023-01-02] MEDS: WARFARIN SOD 2.5MG TAB PO SCH (07:24)
[2023-01-02] MEDS: ADVAIR HFA 115/21MCG INHALER INH SCH ×2 (07:49→21:59)
[2023-01-02] MEDS: ACETAMINOPHEN TAB 650MG DOSE (2X325MG) PO PRN ×2 (08:39→16:16)
[2023-01-02] MEDS: VITAMIN D 1,000 INTERNATIONAL UNITS TABLET PO SCH (08:39)
[2023-01-02] MEDS: CYANOCOBALAMIN 500 MCG TAB PO SCH (08:39)
[2023-01-02] MEDS: MIRALAX *UNIT DOSE* 17GM PACKET PO SCH ×2 (08:39→21:29)
[2023-01-02] MEDS: MULTIVITAMINS/MINERALS THERAP 1 TAB PO SCH (08:40)
[2023-01-02] MEDS: allopurinoL 100 MG TAB PO SCH (08:40)
[2023-01-02] MEDS: oxyCODONE 5MG TAB PO SCH ×2 (08:40→20:13)
[2023-01-02] MEDS: DOCUSATE SODIUM 100MG CAPSULE PO SCH ×2 (08:40→21:30)
[2023-01-02] MEDS: FERROUS GLUCONATE 324 MG TAB PO SCH ×2 (08:40→21:29)
[2023-01-02] MEDS: ASPIRIN 81MG ENTERIC TABLET PO SCH (08:40)
[2023-01-02] MEDS: MAGNESIUM OXIDE 400MG TAB (MAG-OX) PO SCH (08:40)
[2023-01-02] MEDS: MORPHINE 15 MG SA TAB PO SCH ×2 (08:40→20:12)
[2023-01-02] MEDS: FOLIC ACID 1MG TAB PO SCH (08:41)
[2023-01-02] MEDS: ISOSORBIDE DIN (ISORDIL) 10MG TAB PO SCH ×3 (10:17→21:32)
[2023-01-02] MEDS: METOPROLOL SUCC *XL* 12.5MG PER 1/2 TAB (TopROL *XL*) PO SCH (10:17)
[2023-01-02] MEDS: **hydrALAZINE** 10 MG TAB PO SCH ×3 (10:17→21:32)
[2023-01-02] MEDS: DAPAGLIFLOZIN PROPANEDIOL 10MG TABLET (FARXIGA) PO SCH (10:17)
[2023-01-02] MEDS: ALBUTEROL 90 MCG/ACT 8GM HFA INHALER INH PRN (16:17)
[2023-01-03] VITALS (31 sets, daily range): BP systolic 102–125; BP diastolic 54–87; O2SAT 89–98
[2023-01-03] MEDS: FUROSEMIDE 100MG/10ML VIAL IV SCH ×5 (00:19→18:21)
[2023-01-03] MEDS: LEVOTHYROXINE 25MCG TABLET (0.025MG) PO SCH (06:19)
[2023-01-03 06:33] LABS: HEMATOCRIT 30.9 % (42.0-52.0); MEAN CORPUSCULAR HEMOGLOBIN 31.1 pg (27.0-33.0); MEAN CORPUSCULAR HGB CONC 32.4 g/dl (32.0-36.5); PLATELET COUNT, AUTOMATED 246 10^3/uL (150-450); RED BLOOD COUNT 3.22 10^6/uL (4.30-6.10); WHITE BLOOD COUNT 11.5 10^3/uL (4.0-10.0)
[2023-01-03 07:01] LABS: INR 4.08; PROTHROMBIN TIME 40.2 SECONDS (12.5-14.5)
[2023-01-03 07:08] LABS: BLOOD UREA NITROGEN 43 MG/DL (9-23); CALCIUM LEVEL 8.3 MG/DL (8.3-10.6); CARBON DIOXIDE LEVEL 28 MMOL/L (20-31); CHLORIDE LEVEL 97 MMOL/L (98-107); CREATININE FOR GFR 1.84 MG/DL (0.70-1.30); GLOMERULAR FILTRATION RATE 39.9 (>49); GLUCOSE, FASTING 90 MG/DL (74-106); MAGNESIUM LEVEL 2.3 MG/DL (1.8-2.4); POTASSIUM SERUM 3.8 MMOL/L (3.5-5.1); SODIUM LEVEL 136 MMOL/L (136-145)
[2023-01-03 08:07] LABS: IRON (FE) 27 UG/DL (65-175); PERCENT SATURATION 8.9 % (19.7-50.0); TOTAL IRON BINDING CAPACITY 302 UG/DL (250-425)
[2023-01-03 08:10] LABS: FOLATE > 24.0 NG/ML (>5.4)
[2023-01-03 08:11] LABS: FERRITIN 222.9 NG/ML (10.5-307.3); VITAMIN B12 LEVEL 1607 PG/ML (211-911)
[2023-01-03] MEDS: ADVAIR HFA 115/21MCG INHALER INH SCH ×2 (08:32→19:32)
[2023-01-03] MEDS: MIRALAX *UNIT DOSE* 17GM PACKET PO SCH ×2 (09:00→21:00)
[2023-01-03] MEDS: ENTRESTO 24-26MG TABLET (SACUBITRIL/VALSARTAN) PO SCH ×2 (09:56→21:00)
[2023-01-03] MEDS: MAGNESIUM OXIDE 400MG TAB (MAG-OX) PO SCH (09:57)
[2023-01-03] MEDS: ASPIRIN 81MG ENTERIC TABLET PO SCH (09:57)
[2023-01-03] MEDS: oxyCODONE 5MG TAB PO SCH ×2 (09:58→20:59)
[2023-01-03] MEDS: VITAMIN D 1,000 INTERNATIONAL UNITS TABLET PO SCH (09:59)
[2023-01-03] MEDS: MORPHINE 15 MG SA TAB PO SCH ×2 (09:59→21:00)
[2023-01-03] MEDS: FERROUS GLUCONATE 324 MG TAB PO SCH ×2 (10:00→21:00)
[2023-01-03] MEDS: MULTIVITAMINS/MINERALS THERAP 1 TAB PO SCH (10:00)
[2023-01-03] MEDS: DOCUSATE SODIUM 100MG CAPSULE PO SCH ×2 (10:00→21:00)
[2023-01-03] MEDS: allopurinoL 100 MG TAB PO SCH (10:00)
[2023-01-03] MEDS: DAPAGLIFLOZIN PROPANEDIOL 10MG TABLET (FARXIGA) PO SCH (10:00)
[2023-01-03] MEDS: FOLIC ACID 1MG TAB PO SCH (10:01)
[2023-01-03] MEDS: METOPROLOL SUCC *XL* 12.5MG PER 1/2 TAB (TopROL *XL*) PO SCH (10:01)
[2023-01-03] MEDS: CYANOCOBALAMIN 500 MCG TAB PO SCH (10:02)
[2023-01-03] MEDS ORDERED: FERRIC CARBOXYMALTOSE INJ 750 MG, VIAL MATE ADAPTER 1 EACH in NS 250 ML IV ONE (12:00)
[2023-01-03] MEDS: WARFARIN SOD 2.5MG TAB PO SCH (12:23)
[2023-01-03] MEDS ORDERED: FARX1TAB3 PO (17:53)
[2023-01-03] MEDS ORDERED: ENTR1TAB PO (17:53)
[2023-01-04] VITALS (20 sets, daily range): BP systolic 94–122; BP diastolic 28–76; O2SAT 86–98
[2023-01-04] MEDS: FUROSEMIDE 100MG/10ML VIAL IV SCH ×2 (00:28→06:00)
[2023-01-04 06:11] LABS: HEMATOCRIT 31.4 % (42.0-52.0); HEMOGLOBIN 10.4 g/dl (13.5-17.5); MEAN CORPUSCULAR HEMOGLOBIN 31.6 pg (27.0-33.0); MEAN CORPUSCULAR HGB CONC 33.1 g/dl (32.0-36.5); MEAN CORPUSCULAR VOLUME 95.4 fl (80.0-96.0); PLATELET COUNT, AUTOMATED 272 10^3/uL (150-450); RED BLOOD COUNT 3.29 10^6/uL (4.30-6.10); WHITE BLOOD COUNT 11.4 10^3/uL (4.0-10.0)
[2023-01-04] MEDS: LEVOTHYROXINE 25MCG TABLET (0.025MG) PO SCH (06:17)
[2023-01-04 06:29] LABS: PROTHROMBIN TIME 31.6 SECONDS (12.5-14.5)
[2023-01-04 06:46] LABS: CALCIUM LEVEL 8.2 MG/DL (8.3-10.6); CREATININE FOR GFR 1.83 MG/DL (0.70-1.30); GLOMERULAR FILTRATION RATE 40.1 (>49); MAGNESIUM LEVEL 2.2 MG/DL (1.8-2.4); POTASSIUM SERUM 4.1 MMOL/L (3.5-5.1)
[2023-01-04] MEDS: ADVAIR HFA 115/21MCG INHALER INH SCH (07:30)
[2023-01-04] MEDS: MIRALAX *UNIT DOSE* 17GM PACKET PO SCH (09:00)
[2023-01-04] MEDS: VITAMIN D 1,000 INTERNATIONAL UNITS TABLET PO SCH (09:06)
[2023-01-04] MEDS: FERROUS GLUCONATE 324 MG TAB PO SCH (09:06)
[2023-01-04] MEDS: FOLIC ACID 1MG TAB PO SCH (09:06)
[2023-01-04] MEDS: CYANOCOBALAMIN 500 MCG TAB PO SCH (09:06)
[2023-01-04] MEDS: DAPAGLIFLOZIN PROPANEDIOL 10MG TABLET (FARXIGA) PO SCH (09:06)
[2023-01-04] MEDS: oxyCODONE 5MG TAB PO SCH (09:07)
[2023-01-04] MEDS: ENTRESTO 24-26MG TABLET (SACUBITRIL/VALSARTAN) PO SCH (09:07)
[2023-01-04] MEDS: DOCUSATE SODIUM 100MG CAPSULE PO SCH (09:07)
[2023-01-04] MEDS: allopurinoL 100 MG TAB PO SCH (09:08)
[2023-01-04] MEDS: METOPROLOL SUCC *XL* 12.5MG PER 1/2 TAB (TopROL *XL*) PO SCH (09:08)
[2023-01-04] MEDS: MULTIVITAMINS/MINERALS THERAP 1 TAB PO SCH (09:08)
[2023-01-04] MEDS: MAGNESIUM OXIDE 400MG TAB (MAG-OX) PO SCH (09:08)
[2023-01-04] MEDS: ASPIRIN 81MG ENTERIC TABLET PO SCH (09:08)
[2023-01-04] MEDS: MORPHINE 15 MG SA TAB PO SCH (09:09)
[2023-01-04] MEDS: ACETAMINOPHEN TAB 650MG DOSE (2X325MG) PO PRN (09:13)
[2023-01-04] MEDS ORDERED: SENN18TA PO (09:14)
[2023-01-04] MEDS ORDERED: TOPR25TA PO (09:14)
[2023-01-04] MEDS ORDERED: METO25TA PO (11:28)
== END 2023-01-04 15:02 | disposition home health service (06) | DRG 291 ==
LOC: M ED 10:55 → M ED INP 16:10 → M PCU 17:20
PROVIDERS: ADMIT Student in an Organized Health Care Education/Training Program; ATTEND Student in an Organized Health Care Education/Training Program
DX: I13.0 Hypertensive heart and chronic kidney disease with heart failure and stage 1 through stage 4 chronic kidney disease, or unspecified chronic kidney disease (principal); I50.23 Acute on chronic systolic (congestive) heart failure; N18.4 Chronic kidney disease, stage 4 (severe); I48.19 Other persistent atrial fibrillation; E87.20 Acidosis, unspecified; E03.9 Hypothyroidism, unspecified; Z95.2 Presence of prosthetic heart valve; D50.9 Iron deficiency anemia, unspecified; E78.5 Hyperlipidemia, unspecified; I25.10 Atherosclerotic heart disease of native coronary artery without angina pectoris; G89.29 Other chronic pain; M10.9 Gout, unspecified; Z95.810 Presence of automatic (implantable) cardiac defibrillator; Z79.01 Long term (current) use of anticoagulants; G47.33 Obstructive sleep apnea (adult) (pediatric); Z88.8 Allergy status to other drugs, medicaments and biological substances; Z79.899 Other long term (current) drug therapy; Z79.82 Long term (current) use of aspirin; Z95.0 Presence of cardiac pacemaker; Z96.641 Presence of right artificial hip joint; Z87.891 Personal history of nicotine dependence

== ENCOUNTER → 2023-01-25 | Outpatient (REF) | payer MEDICARE ==
[~2023-01-25] MED LIST changes: +ACET500T15 PO; +ALBU8.5H INH; +ASPI-226 PO; +DOCU100C16 PO; +ENTR1TAB PO; +FARX1TAB3 PO; +FERR32TA PO; +FLUT1BLS5 INH; +LEVO25TA5 PO; +MIRA3350 PO; +MORP-69 PO; +SENN18TA PO; +THERTAB21 PO; +TOPR25TA PO; +TORS100T PO; +WARF-18 PO
[2023-01-25 12:11] LABS: BASO # 0.1 10^3/uL (0.0-0.2); BASO % 1.7 % (0.0-1.0); EOS # 0.5 10^3/uL (0.0-0.5); HEMATOCRIT 40.2 % (42.0-52.0); HEMOGLOBIN 12.9 g/dl (13.5-17.5); LYMPH # 1.8 10^3/uL (1.5-5.0); LYMPH % 28.3 % (24.0-44.0); MEAN CORPUSCULAR HEMOGLOBIN 31.2 pg (27.0-33.0); MEAN CORPUSCULAR HGB CONC 32.1 g/dl (32.0-36.5); MEAN CORPUSCULAR VOLUME 97.1 fl (80.0-96.0); MONO # 0.6 10^3/uL (0.0-0.8); MONO % 9.1 % (2.0-8.0); NEUTROPHILS # 3.4 10^3/uL (1.5-8.5); NEUTROPHILS % 52.7 % (36.0-66.0); PLATELET COUNT, AUTOMATED 233 10^3/uL (150-450); RED BLOOD COUNT 4.14 10^6/uL (4.30-6.10); WHITE BLOOD COUNT 6.5 10^3/uL (4.0-10.0)
[2023-01-25 12:54] LABS: ALBUMIN 3.9 G/DL (3.2-5.2); BILIRUBIN,TOTAL 0.8 MG/DL (0.3-1.2); CALCIUM LEVEL 9.5 MG/DL (8.3-10.6); CREATININE FOR GFR 1.96 MG/DL (0.70-1.30); FREE T4 1.09 NG/DL (0.89-1.76); GLOMERULAR FILTRATION RATE 37.1 (>49); POTASSIUM SERUM 3.8 MMOL/L (3.5-5.1); TOTAL PROTEIN 7.3 G/DL (5.7-8.2)
[2023-01-25 12:55] LABS: THYROID STIMULATING HORMONE 7.076 uIU/ML (0.55-4.78)
== END ==
LOC: M SFHCCLAY 08:15
PROVIDERS: ATTEND Family Medicine
DX: I48.91 Unspecified atrial fibrillation (principal); Z95.2 Presence of prosthetic heart valve; Z98.890 Other specified postprocedural states; I50.22 Chronic systolic (congestive) heart failure; E03.9 Hypothyroidism, unspecified

== ENCOUNTER → 2023-03-07 | Outpatient (REF) | payer MEDICARE ==
[~2023-03-07] MED LIST changes: +SENN-111 PO; -SENN18TA PO
[2023-03-07 18:31] LABS: BASO # 0.1 10^3/uL (0.0-0.2); BASO % 0.9 % (0.0-1.0); EOS # 0.6 10^3/uL (0.0-0.5); EOS % 4.9 % (0.0-3.0); HEMOGLOBIN 11.7 g/dl (13.5-17.5); LYMPH # 0.9 10^3/uL (1.5-5.0); LYMPH % 7.5 % (24.0-44.0); MEAN CORPUSCULAR HEMOGLOBIN 31.5 pg (27.0-33.0); MEAN CORPUSCULAR HGB CONC 33.4 g/dl (32.0-36.5); MEAN CORPUSCULAR VOLUME 94.3 fl (80.0-96.0); MONO # 1.1 10^3/uL (0.0-0.8); NEUTROPHILS % 76.8 % (36.0-66.0); PLATELET COUNT, AUTOMATED 219 10^3/uL (150-450); RED BLOOD COUNT 3.71 10^6/uL (4.30-6.10); WHITE BLOOD COUNT 11.6 10^3/uL (4.0-10.0)
[2023-03-07 18:46] LABS: CALCIUM LEVEL 8.7 MG/DL (8.3-10.6); CREATININE FOR GFR 2.2 MG/DL (0.70-1.30); GLOMERULAR FILTRATION RATE 32.3 (>49); POTASSIUM SERUM 3.9 MMOL/L (3.5-5.1)
== END ==
LOC: M SHH 16:51
PROVIDERS: ATTEND Internal Medicine Cardiovascular Disease
DX: I50.42 Chronic combined systolic (congestive) and diastolic (congestive) heart failure (principal)

== ENCOUNTER 2023-03-31 20:07 | Inpatient (IN) | payer MEDICARE ==
[~2023-03-31] VITALS: Ht 185.4 cm; Wt 89.9 kg
[~2023-03-31 20:07] MED LIST changes: -LORA-622 PO; -METO1TAB32 PO; -MUCI600T31 PO; -NYST-13 EXT; -SENN8.6T58 PO; -SYNT50TA PO
[2023-03-31 21:01] LABS: VENOUS BASE EXCESS -0.4 (-2.0-2.0); VENOUS HCO3 24.9 MMOL/L (23.0-27.0); VENOUS O2 SATURATION 77.6 % (60.0-80.0); VENOUS PARTIAL PRESSURE CO2 43.3 mmHg (38.0-50.0); VENOUS PARTIAL PRESSURE O2 42.5 mmHg (30.0-50.0); VENOUS PH 7.377 UNITS (7.330-7.430); VENOUS STANDARD HCO3 23.7 MMOL/L; VENOUS TOTAL CO2 26.2 MMOL/L (24.0-28.0)
[2023-03-31 21:03] LABS: BASO # 0.1 10^3/uL (0.0-0.2); BASO % 0.5 % (0.0-1.0); EOS # 0.5 10^3/uL (0.0-0.5); EOS % 2.4 % (0.0-3.0); HEMATOCRIT 34.4 % (42.0-52.0); HEMOGLOBIN 11.8 g/dl (13.5-17.5); LYMPH # 0.8 10^3/uL (1.5-5.0); LYMPH % 4.2 % (24.0-44.0); MEAN CORPUSCULAR HEMOGLOBIN 31.5 pg (27.0-33.0); MEAN CORPUSCULAR HGB CONC 34.3 g/dl (32.0-36.5); MEAN CORPUSCULAR VOLUME 91.7 fl (80.0-96.0); MONO # 0.9 10^3/uL (0.0-0.8); MONO % 4.9 % (2.0-8.0); NEUTROPHILS # 16.5 10^3/uL (1.5-8.5); NEUTROPHILS % 87.6 % (36.0-66.0); PLATELET COUNT, AUTOMATED 237 10^3/uL (150-450); RED BLOOD COUNT 3.75 10^6/uL (4.30-6.10); WHITE BLOOD COUNT 18.9 10^3/uL (4.0-10.0)
[2023-03-31 21:16] LABS: INR 2.23; PROTHROMBIN TIME 25.1 SECONDS (12.5-14.5)
[2023-03-31] MEDS ORDERED: MED REC IN PROGRESS XX SCH (21:20)
[2023-03-31 21:35] LABS: CREATININE FOR GFR 3.66 MG/DL (0.70-1.30); MAGNESIUM LEVEL 3.2 MG/DL (1.8-2.4); PHOSPHORUS LEVEL 5.3 MG/DL (2.4-5.1); POTASSIUM SERUM 4.4 MMOL/L (3.5-5.1)
[2023-03-31] MEDS ORDERED: NYST-13 EXT (22:45)
[2023-03-31] MEDS ORDERED: METO25TA PO (22:45)
[2023-03-31] MEDS ORDERED: SENN8.6T58 PO (22:45)
[2023-03-31] MEDS ORDERED: SYNT50TA PO (22:47)
[2023-03-31] MEDS ORDERED: METO1TAB32 PO (22:47)
[2023-03-31] MEDS ORDERED: ENTR1TAB PO (22:48)
[2023-03-31] MEDS ORDERED: LORA-622 PO (22:48)
[2023-03-31] MEDS ORDERED: MUCI600T31 PO (22:48)
[2023-03-31] MEDS ORDERED: HOME MED LIST COMPLETE! XX SCH (22:50)
[2023-03-31] MEDS ORDERED: ACETAMINOPHEN TAB 650MG DOSE (2X325MG) PO PRN (23:15)
[2023-03-31] MEDS ORDERED: MIRALAX *UNIT DOSE* 17GM PACKET PO PRN (23:15)
[2023-03-31 23:38] LABS: PTH INTACT 10.7 PG/ML (18.5-88.0)
[2023-03-31 23:41] LABS: FREE THYROXINE INDEX 2.2 % (1.4-3.8); T UPTAKE 36.1 % (22.5-37.0); THYROID STIMULATING HORMONE 2.211 uIU/ML (0.55-4.78); THYROXINE (T4) 6.1 UG/DL (4.5-10.9)
[2023-03-31 23:42] LABS: TOTAL 25(OH) VITAMIN D 55.6 NG/ML (20.0-100.0)
[2023-03-31] MEDS ORDERED: MORPHINE 15 MG SA TAB PO ONE (23:45)
[2023-03-31] MEDS ORDERED: oxyCODONE 5MG TAB PO ONE (23:50)
[2023-03-31] MEDS ORDERED: WARFARIN SOD 5MG TAB PO ONE (23:50)
[2023-03-31] MEDS ORDERED: MORPHINE 30 MG TAB **MSIR PO ONE (23:50)
[2023-04-01] MEDS: NS 1,000 ML IV SCH ×3 (00:13→20:49)
[2023-04-01] MEDS: CALCITONIN SALMON (MIACALCIN) 400INTERNATIONAL UNITS/2ML VIAL SQ SCH ×2 (00:36→12:00)
[2023-04-01 01:16] LABS: BILIRUBIN,DIRECT 0.6 MG/DL (<0.4); BILIRUBIN,TOTAL 1.2 MG/DL (0.3-1.2); TOTAL PROTEIN 7.8 G/DL (5.7-8.2)
[2023-04-01 01:30] LABS: SODIUM,RANDOM URINE 56 MMOL/L
[2023-04-01 01:40] LABS: CREATININE,RANDOM URINE 28.4 MG/DL
[2023-04-01 04:33] LABS: BASO # 0.1 10^3/uL (0.0-0.2); BASO % 0.6 % (0.0-1.0); EOS # 0.6 10^3/uL (0.0-0.5); EOS % 3.8 % (0.0-3.0); HEMATOCRIT 33.8 % (42.0-52.0); HEMOGLOBIN 11.5 g/dl (13.5-17.5); LYMPH # 0.9 10^3/uL (1.5-5.0); LYMPH % 5.9 % (24.0-44.0); MEAN CORPUSCULAR HEMOGLOBIN 31.3 pg (27.0-33.0); MEAN CORPUSCULAR VOLUME 91.8 fl (80.0-96.0); MONO # 0.9 10^3/uL (0.0-0.8); MONO % 5.8 % (2.0-8.0); NEUTROPHILS # 12.9 10^3/uL (1.5-8.5); NEUTROPHILS % 83.6 % (36.0-66.0); PLATELET COUNT, AUTOMATED 243 10^3/uL (150-450); RED BLOOD COUNT 3.68 10^6/uL (4.30-6.10); WHITE BLOOD COUNT 15.4 10^3/uL (4.0-10.0)
[2023-04-01 04:50] LABS: INR 2.24; PROTHROMBIN TIME 25.2 SECONDS (12.5-14.5)
[2023-04-01 05:15] LABS: PROCALCITONIN 0.44 ng/ml
[2023-04-01 05:21] LABS: CALCIUM LEVEL 14.5 MG/DL (8.3-10.6); CREATININE FOR GFR 3.57 MG/DL (0.70-1.30); GLOMERULAR FILTRATION RATE 18.5 (>49); MAGNESIUM LEVEL 3.2 MG/DL (1.8-2.4); POTASSIUM SERUM 4.5 MMOL/L (3.5-5.1)
[2023-04-01] MEDS: LEVOTHYROXINE 50MCG TABLET (0.05MG) PO SCH (06:01)
[2023-04-01] MEDS: FUROSEMIDE 40MG/4ML VIAL IV SCH ×3 (06:01→22:04)
[2023-04-01] MEDS: ADVAIR HFA 115/21MCG INHALER INH SCH ×2 (08:25→19:27)
[2023-04-01] MEDS: METOPROLOL SUCC *XL* 12.5MG PER 1/2 TAB (TopROL *XL*) PO SCH (09:00)
[2023-04-01 09:27] LABS: CALCIUM LEVEL 13.8 MG/DL (8.3-10.6); CREATININE FOR GFR 3.39 MG/DL (0.70-1.30); GLOMERULAR FILTRATION RATE 19.6 (>49); POTASSIUM SERUM 4.1 MMOL/L (3.5-5.1)
[2023-04-01] MEDS: oxyCODONE 5MG TAB PO SCH ×2 (09:35→20:50)
[2023-04-01] MEDS: ASPIRIN 81MG ENTERIC TABLET PO SCH (09:35)
[2023-04-01] MEDS: guaiFENesin ER 600 MG TAB PO SCH ×2 (09:36→20:50)
[2023-04-01] MEDS: ACETAMINOPHEN 500 MG TAB PO SCH ×2 (09:36→20:51)
[2023-04-01] MEDS: FOLIC ACID 1MG TAB PO SCH (09:36)
[2023-04-01] MEDS: MORPHINE 15 MG SA TAB PO SCH ×2 (09:36→20:50)
[2023-04-01] MEDS: allopurinoL 100 MG TAB PO SCH (09:36)
[2023-04-01] MEDS: LORATADINE 10 MG TAB PO SCH (09:36)
[2023-04-01] MEDS: DOCUSATE SODIUM 100MG CAPSULE PO SCH ×2 (09:36→20:51)
[2023-04-01] MEDS: AZITHROMYCIN 250MG TABLET PO SCH (11:57)
[2023-04-01] MEDS: cefTRIAXone SOD 1 GM in D5W MINI-BAG PLUS 50 ML IV SCH (11:58)
[2023-04-01] MEDS: FERROUS GLUCONATE 324 MG TAB PO SCH ×2 (11:58→20:51)
[2023-04-01 13:47] VITALS: BP 106/61; TEMP 97; O2SAT 97
[2023-04-01 15:30] VITALS: BP 106/56; TEMP 97.1; O2SAT 100
[2023-04-01] MEDS: WARFARIN SOD 2.5MG TAB PO SCH (16:47)
[2023-04-01 16:58] LABS: CREATININE FOR GFR 3.24 MG/DL (0.70-1.30); GLOMERULAR FILTRATION RATE 20.7 (>49)
[2023-04-01 16:59] LABS: CALCIUM LEVEL 15.7 MG/DL (8.3-10.6)
[2023-04-01] MEDS ORDERED: WARFARIN SOD 2.5MG TAB PO ONE (17:00)
[2023-04-01 20:00] VITALS: BP 122/62; TEMP 96.9; O2SAT 100
[2023-04-01 22:43] LABS: CALCIUM LEVEL 14.4 MG/DL (8.3-10.6); CREATININE FOR GFR 3.02 MG/DL (0.70-1.30); GLOMERULAR FILTRATION RATE 22.4 (>49)
[2023-04-02] VITALS (7 sets, daily range): BP systolic 104–122; BP diastolic 56–81; TEMP 96.6–97.4; O2SAT 98–100
[2023-04-02] MEDS: CALCITONIN SALMON (MIACALCIN) 400INTERNATIONAL UNITS/2ML VIAL SQ SCH ×3 (00:16→21:53)
[2023-04-02 04:28] LABS: BASO # 0.1 10^3/uL (0.0-0.2); BASO % 0.8 % (0.0-1.0); EOS # 0.5 10^3/uL (0.0-0.5); EOS % 4.4 % (0.0-3.0); HEMATOCRIT 32.7 % (42.0-52.0); LYMPH # 0.8 10^3/uL (1.5-5.0); LYMPH % 7.3 % (24.0-44.0); MEAN CORPUSCULAR HEMOGLOBIN 31.3 pg (27.0-33.0); MEAN CORPUSCULAR HGB CONC 33.6 g/dl (32.0-36.5); MEAN CORPUSCULAR VOLUME 92.9 fl (80.0-96.0); MONO # 0.8 10^3/uL (0.0-0.8); MONO % 7.7 % (2.0-8.0); NEUTROPHILS # 8.4 10^3/uL (1.5-8.5); NEUTROPHILS % 79.2 % (36.0-66.0); PLATELET COUNT, AUTOMATED 244 10^3/uL (150-450); RED BLOOD COUNT 3.52 10^6/uL (4.30-6.10); WHITE BLOOD COUNT 10.6 10^3/uL (4.0-10.0)
[2023-04-02 04:41] LABS: INR 2.36; PROTHROMBIN TIME 26.2 SECONDS (12.5-14.5)
[2023-04-02 04:50] LABS: CALCIUM LEVEL 12.7 MG/DL (8.3-10.6); CREATININE FOR GFR 2.98 MG/DL (0.70-1.30); GLOMERULAR FILTRATION RATE 22.8 (>49); POTASSIUM SERUM 4.1 MMOL/L (3.5-5.1)
[2023-04-02] MEDS: LEVOTHYROXINE 50MCG TABLET (0.05MG) PO SCH (05:55)
[2023-04-02] MEDS: FUROSEMIDE 40MG/4ML VIAL IV SCH ×3 (05:56→21:51)
[2023-04-02] MEDS: NS 1,000 ML IV SCH ×2 (06:03→15:42)
[2023-04-02] MEDS: ADVAIR HFA 115/21MCG INHALER INH SCH ×2 (08:17→19:22)
[2023-04-02] MEDS: allopurinoL 100 MG TAB PO SCH (08:20)
[2023-04-02] MEDS: guaiFENesin ER 600 MG TAB PO SCH ×2 (08:20→21:53)
[2023-04-02] MEDS: AZITHROMYCIN 250MG TABLET PO SCH (08:20)
[2023-04-02] MEDS: FERROUS GLUCONATE 324 MG TAB PO SCH ×2 (08:21→21:53)
[2023-04-02] MEDS: DOCUSATE SODIUM 100MG CAPSULE PO SCH ×2 (08:21→21:51)
[2023-04-02] MEDS: LORATADINE 10 MG TAB PO SCH (08:21)
[2023-04-02] MEDS: ASPIRIN 81MG ENTERIC TABLET PO SCH (08:21)
[2023-04-02] MEDS: FOLIC ACID 1MG TAB PO SCH (08:21)
[2023-04-02] MEDS: ACETAMINOPHEN 500 MG TAB PO SCH ×2 (08:21→21:52)
[2023-04-02] MEDS: METOPROLOL SUCC *XL* 12.5MG PER 1/2 TAB (TopROL *XL*) PO SCH (08:22)
[2023-04-02] MEDS: MORPHINE 15 MG SA TAB PO SCH ×2 (08:23→21:52)
[2023-04-02] MEDS: oxyCODONE 5MG TAB PO SCH ×2 (08:24→21:52)
[2023-04-02 08:33] LABS: MAGNESIUM LEVEL 2.7 MG/DL (1.8-2.4)
[2023-04-02] MEDS: cefTRIAXone SOD 1 GM in D5W MINI-BAG PLUS 50 ML IV SCH (10:38)
[2023-04-02 10:49] LABS: CALCIUM LEVEL 13.4 MG/DL (8.3-10.6); CREATININE FOR GFR 2.73 MG/DL (0.70-1.30); GLOMERULAR FILTRATION RATE 25.2 (>49); POTASSIUM SERUM 3.9 MMOL/L (3.5-5.1)
[2023-04-02] MEDS ORDERED: WARFARIN SOD 5MG TAB PO SCH (17:00)
[2023-04-02] MEDS ORDERED: WARFARIN SOD 2.5MG TAB PO ONE (17:00)
[2023-04-03] VITALS: BP 123/77; TEMP 97.4; O2SAT 100
[2023-04-03] MEDS: NS 1,000 ML IV SCH ×3 (01:31→20:37)
[2023-04-03 04:48] VITALS: BP 123/78; TEMP 97.3; O2SAT 99
[2023-04-03 05:12] LABS: BASO # 0.1 10^3/uL (0.0-0.2); BASO % 0.9 % (0.0-1.0); EOS # 0.4 10^3/uL (0.0-0.5); EOS % 3.5 % (0.0-3.0); HEMATOCRIT 30.3 % (42.0-52.0); HEMOGLOBIN 10.2 g/dl (13.5-17.5); LYMPH % 9.5 % (24.0-44.0); MEAN CORPUSCULAR HEMOGLOBIN 31.4 pg (27.0-33.0); MEAN CORPUSCULAR HGB CONC 33.7 g/dl (32.0-36.5); MEAN CORPUSCULAR VOLUME 93.2 fl (80.0-96.0); MONO # 0.7 10^3/uL (0.0-0.8); MONO % 6.5 % (2.0-8.0); NEUTROPHILS # 8.5 10^3/uL (1.5-8.5); PLATELET COUNT, AUTOMATED 240 10^3/uL (150-450); RED BLOOD COUNT 3.25 10^6/uL (4.30-6.10); WHITE BLOOD COUNT 10.8 10^3/uL (4.0-10.0)
[2023-04-03 05:26] LABS: INR 2.9; PROTHROMBIN TIME 30.8 SECONDS (12.5-14.5)
[2023-04-03 05:36] LABS: CREATININE FOR GFR 2.45 MG/DL (0.70-1.30); GLOMERULAR FILTRATION RATE 28.6 (>49); POTASSIUM SERUM 3.6 MMOL/L (3.5-5.1)
[2023-04-03] MEDS: LEVOTHYROXINE 50MCG TABLET (0.05MG) PO SCH (06:22)
[2023-04-03] MEDS: FUROSEMIDE 40MG/4ML VIAL IV SCH ×3 (06:22→23:13)
[2023-04-03 07:42] VITALS: BP 112/68; TEMP 98; O2SAT 100
[2023-04-03] MEDS: AZITHROMYCIN 250MG TABLET PO SCH (08:50)
[2023-04-03] MEDS: METOPROLOL SUCC *XL* 12.5MG PER 1/2 TAB (TopROL *XL*) PO SCH (08:50)
[2023-04-03] MEDS: allopurinoL 100 MG TAB PO SCH (08:51)
[2023-04-03] MEDS: ASPIRIN 81MG ENTERIC TABLET PO SCH (08:51)
[2023-04-03] MEDS: FERROUS GLUCONATE 324 MG TAB PO SCH ×2 (08:51→20:38)
[2023-04-03] MEDS: ACETAMINOPHEN 500 MG TAB PO SCH ×2 (08:52→20:40)
[2023-04-03] MEDS: MORPHINE 15 MG SA TAB PO SCH ×2 (08:52→20:39)
[2023-04-03] MEDS: oxyCODONE 5MG TAB PO SCH ×2 (08:53→20:38)
[2023-04-03] MEDS: guaiFENesin ER 600 MG TAB PO SCH ×2 (08:54→20:40)
[2023-04-03] MEDS: FOLIC ACID 1MG TAB PO SCH (08:54)
[2023-04-03] MEDS: DOCUSATE SODIUM 100MG CAPSULE PO SCH ×2 (08:54→20:40)
[2023-04-03] MEDS: LORATADINE 10 MG TAB PO SCH (08:54)
[2023-04-03] MEDS: CALCITONIN SALMON (MIACALCIN) 400INTERNATIONAL UNITS/2ML VIAL SQ SCH ×2 (08:55→23:13)
[2023-04-03] MEDS: ADVAIR HFA 115/21MCG INHALER INH SCH ×2 (09:20→19:29)
[2023-04-03 11:19] VITALS: BP 111/70; TEMP 97.7; O2SAT 99
[2023-04-03] MEDS: cefTRIAXone SOD 1 GM in D5W MINI-BAG PLUS 50 ML IV SCH (11:20)
[2023-04-03 16:30] VITALS: BP 116/80; TEMP 97.5; O2SAT 98
[2023-04-03] MEDS: WARFARIN SOD 2.5MG TAB PO SCH (18:04)
[2023-04-03 19:40] VITALS: BP 112/72; TEMP 98.1; O2SAT 97
[2023-04-04 06:00] VITALS: BP 114/74; TEMP 97.5; O2SAT 97
[2023-04-04] MEDS: LEVOTHYROXINE 50MCG TABLET (0.05MG) PO SCH (06:00)
[2023-04-04] MEDS: FUROSEMIDE 40MG/4ML VIAL IV SCH (06:00)
[2023-04-04] MEDS: NS 1,000 ML IV SCH (06:00)
[2023-04-04 06:26] LABS: BASO # 0.1 10^3/uL (0.0-0.2); EOS # 0.4 10^3/uL (0.0-0.5); HEMOGLOBIN 10.6 g/dl (13.5-17.5); LYMPH # 1.3 10^3/uL (1.5-5.0); LYMPH % 12.8 % (24.0-44.0); MEAN CORPUSCULAR HEMOGLOBIN 31.1 pg (27.0-33.0); MEAN CORPUSCULAR HGB CONC 33.1 g/dl (32.0-36.5); MEAN CORPUSCULAR VOLUME 93.8 fl (80.0-96.0); MONO # 0.8 10^3/uL (0.0-0.8); MONO % 7.5 % (2.0-8.0); NEUTROPHILS # 7.5 10^3/uL (1.5-8.5); NEUTROPHILS % 74.4 % (36.0-66.0); PLATELET COUNT, AUTOMATED 247 10^3/uL (150-450); RED BLOOD COUNT 3.41 10^6/uL (4.30-6.10); WHITE BLOOD COUNT 10.1 10^3/uL (4.0-10.0)
[2023-04-04 06:38] LABS: INR 3.05
[2023-04-04 06:46] LABS: CALCIUM LEVEL 10.1 MG/DL (8.3-10.6); CREATININE FOR GFR 2.2 MG/DL (0.70-1.30); GLOMERULAR FILTRATION RATE 32.3 (>49); MAGNESIUM LEVEL 2.2 MG/DL (1.8-2.4); POTASSIUM SERUM 3.7 MMOL/L (3.5-5.1)
[2023-04-04] MEDS: ADVAIR HFA 115/21MCG INHALER INH SCH ×2 (07:50→21:07)
[2023-04-04] MEDS: AZITHROMYCIN 250MG TABLET PO SCH (09:14)
[2023-04-04] MEDS: ASPIRIN 81MG ENTERIC TABLET PO SCH (09:15)
[2023-04-04] MEDS: FERROUS GLUCONATE 324 MG TAB PO SCH ×2 (09:15→20:18)
[2023-04-04] MEDS: oxyCODONE 5MG TAB PO SCH ×2 (09:15→20:20)
[2023-04-04] MEDS: METOPROLOL SUCC *XL* 12.5MG PER 1/2 TAB (TopROL *XL*) PO SCH (09:15)
[2023-04-04] MEDS: allopurinoL 100 MG TAB PO SCH (09:16)
[2023-04-04] MEDS: LORATADINE 10 MG TAB PO SCH (09:16)
[2023-04-04] MEDS: ACETAMINOPHEN 500 MG TAB PO SCH ×2 (09:16→20:19)
[2023-04-04] MEDS: DOCUSATE SODIUM 100MG CAPSULE PO SCH ×2 (09:16→20:18)
[2023-04-04] MEDS: guaiFENesin ER 600 MG TAB PO SCH ×2 (09:16→20:19)
[2023-04-04] MEDS: FOLIC ACID 1MG TAB PO SCH (09:16)
[2023-04-04] MEDS: MORPHINE 15 MG SA TAB PO SCH ×2 (09:16→20:19)
[2023-04-04] MEDS: cefTRIAXone SOD 1 GM in D5W MINI-BAG PLUS 50 ML IV SCH (10:50)
[2023-04-04 14:00] VITALS: BP 107/62; TEMP 97.7; O2SAT 99
[2023-04-04 20:00] VITALS: BP 114/77; TEMP 97.7; O2SAT 99
[2023-04-05] MEDS: LEVOTHYROXINE 50MCG TABLET (0.05MG) PO SCH (05:38)
[2023-04-05 06:00] VITALS: BP 113/75; TEMP 97.7; O2SAT 98
[2023-04-05] MEDS ORDERED: LevoFLOXacin 750 MG TABLET PO SCH (06:00)
[2023-04-05 06:01] LABS: BASO # 0.1 10^3/uL (0.0-0.2); BASO % 0.8 % (0.0-1.0); EOS # 0.4 10^3/uL (0.0-0.5); EOS % 4.2 % (0.0-3.0); HEMATOCRIT 30.6 % (42.0-52.0); HEMOGLOBIN 10.3 g/dl (13.5-17.5); LYMPH # 1.4 10^3/uL (1.5-5.0); LYMPH % 14.3 % (24.0-44.0); MEAN CORPUSCULAR HEMOGLOBIN 31.2 pg (27.0-33.0); MEAN CORPUSCULAR HGB CONC 33.7 g/dl (32.0-36.5); MEAN CORPUSCULAR VOLUME 92.7 fl (80.0-96.0); MONO # 0.8 10^3/uL (0.0-0.8); MONO % 8.1 % (2.0-8.0); NEUTROPHILS # 7.1 10^3/uL (1.5-8.5); NEUTROPHILS % 72.2 % (36.0-66.0); PLATELET COUNT, AUTOMATED 235 10^3/uL (150-450); WHITE BLOOD COUNT 9.8 10^3/uL (4.0-10.0)
[2023-04-05 06:11] LABS: INR 2.95; PROTHROMBIN TIME 31.2 SECONDS (12.5-14.5)
[2023-04-05 06:29] LABS: CALCIUM LEVEL 10.5 MG/DL (8.3-10.6); CREATININE FOR GFR 2.15 MG/DL (0.70-1.30); GLOMERULAR FILTRATION RATE 33.2 (>49); POTASSIUM SERUM 3.6 MMOL/L (3.5-5.1)
[2023-04-05] MEDS: ADVAIR HFA 115/21MCG INHALER INH SCH (07:33)
[2023-04-05 08:47] VITALS: BP 111/68
[2023-04-05] MEDS: MORPHINE 15 MG SA TAB PO SCH (08:47)
[2023-04-05] MEDS: METOPROLOL SUCC *XL* 12.5MG PER 1/2 TAB (TopROL *XL*) PO SCH (08:47)
[2023-04-05] MEDS: LORATADINE 10 MG TAB PO SCH (08:48)
[2023-04-05] MEDS: guaiFENesin ER 600 MG TAB PO SCH (08:48)
[2023-04-05] MEDS: allopurinoL 100 MG TAB PO SCH (08:48)
[2023-04-05] MEDS: FOLIC ACID 1MG TAB PO SCH (08:48)
[2023-04-05] MEDS: oxyCODONE 5MG TAB PO SCH (08:48)
[2023-04-05] MEDS: ASPIRIN 81MG ENTERIC TABLET PO SCH (08:48)
[2023-04-05] MEDS: ACETAMINOPHEN 500 MG TAB PO SCH (08:48)
[2023-04-05] MEDS: DOCUSATE SODIUM 100MG CAPSULE PO SCH (08:48)
[2023-04-05] MEDS: FERROUS GLUCONATE 324 MG TAB PO SCH (08:48)
[2023-04-05] MEDS ORDERED: D5W IV ONE (12:00)
[2023-04-05] MEDS ORDERED: PAMIDRONATE DISODIUM FOR IV ONE (12:00)
[2023-04-05 14:00] VITALS: BP 110/69; TEMP 97.7; O2SAT 99
[2023-04-05] MEDS ORDERED: LEVO1TAB40 PO (16:53)
[2023-04-05] MEDS: WARFARIN SOD 2.5MG TAB PO SCH (16:59)
[2023-04-05] MEDS ORDERED: ENTR1TAB PO (18:17)
[2023-04-05] MEDS ORDERED: TORS100T PO (18:17)
[2023-04-05] MEDS ORDERED: SPIR-10 PO (18:17)
[2023-04-05 19:07] LABS: FREE LAMBDA LIGHT CHAINS SERUM 94.7 mg/L (5.7-26.3); KAPPA/LAMBDA RATIO SERUM 1.34 (0.26-1.65)
[2023-04-07 21:08] LABS: PTH RELATED PEPTIDE < 2.0 pmol/L (.); VITAMIN D 1,25 DIHYDROXY 89.7 pg/mL (24.8-81.5)
== END 2023-04-05 18:43 | disposition home health service (06) | DRG 682 ==
LOC: M ED 20:07 → M ED INP 23:11 → M PCU 04-01 13:48 → M MSPAV 04-03 16:25
PROVIDERS: ADMIT Family Medicine; ATTEND General Practice
DX: N17.9 Acute kidney failure, unspecified (principal); J15.6 Pneumonia due to other Gram-negative bacteria; I50.22 Chronic systolic (congestive) heart failure; A52.16 Charcot's arthropathy (tabetic); E87.1 Hypo-osmolality and hyponatremia; E83.52 Hypercalcemia; N18.4 Chronic kidney disease, stage 4 (severe); Z95.810 Presence of automatic (implantable) cardiac defibrillator; I25.10 Atherosclerotic heart disease of native coronary artery without angina pectoris; E83.39 Other disorders of phosphorus metabolism; E03.9 Hypothyroidism, unspecified; M10.9 Gout, unspecified; G47.33 Obstructive sleep apnea (adult) (pediatric); E83.41 Hypermagnesemia; D50.9 Iron deficiency anemia, unspecified; I48.0 Paroxysmal atrial fibrillation; Z95.0 Presence of cardiac pacemaker; J44.9 Chronic obstructive pulmonary disease, unspecified; Z79.01 Long term (current) use of anticoagulants; Z88.8 Allergy status to other drugs, medicaments and biological substances; Z79.899 Other long term (current) drug therapy; Z79.82 Long term (current) use of aspirin

== ENCOUNTER → 2023-03-31 | Outpatient (CLI) | payer MEDICARE ==
[~2023-03-31] MED LIST changes: +LORA-622 PO; +METO1TAB32 PO; +MUCI600T31 PO; +NYST-13 EXT; +SENN8.6T58 PO; +SYNT50TA PO
== END ==
LOC: M CLY 15:25
PROVIDERS: ATTEND Physician Assistant Medical
DX: R91.8 Other nonspecific abnormal finding of lung field (principal); R05.2 Subacute cough

== ENCOUNTER → 2023-03-31 | Outpatient (REF) | payer MEDICARE ==
[2023-03-31 17:18] LABS: BASO # 0.1 10^3/uL (0.0-0.2); BASO % 0.6 % (0.0-1.0); EOS # 0.5 10^3/uL (0.0-0.5); HEMATOCRIT 32.2 % (42.0-52.0); HEMOGLOBIN 10.9 g/dl (13.5-17.5); LYMPH # 0.7 10^3/uL (1.5-5.0); LYMPH % 4.2 % (24.0-44.0); MEAN CORPUSCULAR HEMOGLOBIN 31.6 pg (27.0-33.0); MEAN CORPUSCULAR HGB CONC 33.9 g/dl (32.0-36.5); MEAN CORPUSCULAR VOLUME 93.3 fl (80.0-96.0); MONO # 1.1 10^3/uL (0.0-0.8); MONO % 6.4 % (2.0-8.0); NEUTROPHILS # 14.9 10^3/uL (1.5-8.5); NEUTROPHILS % 85.3 % (36.0-66.0); PLATELET COUNT, AUTOMATED 248 10^3/uL (150-450); RED BLOOD COUNT 3.45 10^6/uL (4.30-6.10); WHITE BLOOD COUNT 17.4 10^3/uL (4.0-10.0)
[2023-03-31 19:13] LABS: ALBUMIN 3.8 G/DL (3.2-5.2); ALKALINE PHOSPHATASE 118 U/L (46-116); ALT/SGPT < 9 U/L (7.0-40); AST/SGOT < 8 U/L (<34); BILIRUBIN,TOTAL 1.4 MG/DL (0.3-1.2); BLOOD UREA NITROGEN 111 MG/DL (9-23); CARBON DIOXIDE LEVEL 29 MMOL/L (20-31); CHLORIDE LEVEL 95 MMOL/L (98-107); CREATININE FOR GFR 3.76 MG/DL (0.70-1.30); GLOMERULAR FILTRATION RATE 17.4 (>49); GLUCOSE, FASTING 100 MG/DL (74-106); POTASSIUM SERUM 4.4 MMOL/L (3.5-5.1); SODIUM LEVEL 134 MMOL/L (136-145); TOTAL PROTEIN 7.1 G/DL (5.7-8.2)
[2023-03-31 19:14] LABS: CALCIUM LEVEL 16.6 MG/DL (8.3-10.6)
== END ==
LOC: M SFHCCLAY 15:17
PROVIDERS: ATTEND Physician Assistant Medical
DX: I50.22 Chronic systolic (congestive) heart failure (principal)

== ENCOUNTER → 2023-05-06 | Outpatient (REF) | payer MEDICARE ==
[~2023-05-06] MED LIST changes: +LEVO1TAB40 PO; +LORA-622 PO; +METO1TAB32 PO; +MUCI600T31 PO; +NYST-13 EXT; +SENN8.6T58 PO; +SYNT50TA PO
[2023-05-06 18:28] LABS: ALBUMIN 3.8 G/DL (3.2-5.2); CALCIUM LEVEL 11.1 MG/DL (8.3-10.6); CREATININE FOR GFR 3.74 MG/DL (0.70-1.30); GLOMERULAR FILTRATION RATE 17.5 (>49); PHOSPHORUS LEVEL 4.9 MG/DL (2.4-5.1); POTASSIUM SERUM 4.6 MMOL/L (3.5-5.1)
== END ==
LOC: M SFHCCLAY 10:32
PROVIDERS: ATTEND Family Medicine
DX: I50.22 Chronic systolic (congestive) heart failure (principal); N18.4 Chronic kidney disease, stage 4 (severe); E83.52 Hypercalcemia; Z12.5 Encounter for screening for malignant neoplasm of prostate
CPT/HCPCS: 80069; G0103

== ENCOUNTER → 2023-05-12 | Outpatient (REF) | payer MEDICARE ==
[2023-05-12 11:32] LABS: BASO # 0.1 10^3/uL (0.0-0.2); BASO % 0.8 % (0.0-1.0); EOS # 0.5 10^3/uL (0.0-0.5); HEMOGLOBIN 11.2 g/dl (13.5-17.5); LYMPH # 1.2 10^3/uL (1.5-5.0); LYMPH % 9.9 % (24.0-44.0); MONO # 0.9 10^3/uL (0.0-0.8); MONO % 7.5 % (2.0-8.0); NEUTROPHILS # 9.2 10^3/uL (1.5-8.5); NEUTROPHILS % 77.3 % (36.0-66.0); PLATELET COUNT, AUTOMATED 246 10^3/uL (150-450); WHITE BLOOD COUNT 11.9 10^3/uL (4.0-10.0)
[2023-05-12 11:33] LABS: ALBUMIN 3.9 G/DL (3.2-5.2); BILIRUBIN,TOTAL 0.7 MG/DL (0.3-1.2); CALCIUM LEVEL 11.7 MG/DL (8.3-10.6); CREATININE FOR GFR 3.27 MG/DL (0.70-1.30); GLOMERULAR FILTRATION RATE 20.5 (>49); POTASSIUM SERUM 5.4 MMOL/L (3.5-5.1); TOTAL PROTEIN 7.4 G/DL (5.7-8.2)
== END ==
LOC: M SHH 11:09
PROVIDERS: ATTEND Internal Medicine Cardiovascular Disease
DX: I50.42 Chronic combined systolic (congestive) and diastolic (congestive) heart failure (principal)

== ENCOUNTER → 2023-05-16 | Outpatient (REF) | payer MEDICARE ==
[2023-05-16 11:53] LABS: BASO # 0.1 10^3/uL (0.0-0.2); BASO % 1.3 % (0.0-1.0); EOS # 0.7 10^3/uL (0.0-0.5); HEMOGLOBIN 10.9 g/dl (13.5-17.5); LYMPH # 1.2 10^3/uL (1.5-5.0); LYMPH % 12.7 % (24.0-44.0); MEAN CORPUSCULAR HEMOGLOBIN 32.7 pg (27.0-33.0); MEAN CORPUSCULAR VOLUME 99.1 fl (80.0-96.0); MONO # 0.9 10^3/uL (0.0-0.8); MONO % 9.4 % (2.0-8.0); NEUTROPHILS # 6.4 10^3/uL (1.5-8.5); NEUTROPHILS % 69.3 % (36.0-66.0); PLATELET COUNT, AUTOMATED 232 10^3/uL (150-450); RED BLOOD COUNT 3.33 10^6/uL (4.30-6.10); WHITE BLOOD COUNT 9.3 10^3/uL (4.0-10.0)
[2023-05-16 12:25] LABS: BILIRUBIN,TOTAL 0.6 MG/DL (0.3-1.2); CALCIUM LEVEL 11.2 MG/DL (8.3-10.6); CREATININE FOR GFR 3.52 MG/DL (0.70-1.30); GLOMERULAR FILTRATION RATE 18.8 (>49); POTASSIUM SERUM 4.1 MMOL/L (3.5-5.1); TOTAL PROTEIN 7.6 G/DL (5.7-8.2)
== END ==
LOC: M LABDRAWC 11:10
PROVIDERS: ATTEND Internal Medicine Cardiovascular Disease
DX: I50.42 Chronic combined systolic (congestive) and diastolic (congestive) heart failure (principal)

== ENCOUNTER → 2023-07-18 | Outpatient (REF) | payer MEDICARE ==
[2023-07-18 17:36] LABS: INR 3.16; PROTHROMBIN TIME 31.7 SECONDS (12.5-14.5)
== END ==
LOC: M SHH 16:48
PROVIDERS: ATTEND Internal Medicine Cardiovascular Disease
DX: Z95.4 Presence of other heart-valve replacement (principal)

== ENCOUNTER → 2023-07-18 | Outpatient (REF) | payer MEDICARE ==
[2023-07-18 22:08] LABS: CALCIUM LEVEL 9.9 MG/DL (8.3-10.6); CREATININE FOR GFR 2.08 MG/DL (0.70-1.30); GLOMERULAR FILTRATION RATE 34.5 (>49); POTASSIUM SERUM 4.5 MMOL/L (3.5-5.1)
== END ==
LOC: M SHH 16:46
DX: N17.9 Acute kidney failure, unspecified (principal)

== ENCOUNTER → 2023-07-27 | Outpatient (REF) | payer MEDICARE ==
[2023-07-27 18:30] LABS: HEMATOCRIT 33.2 % (42.0-52.0); HEMOGLOBIN 10.9 g/dl (13.5-17.5); MEAN CORPUSCULAR HEMOGLOBIN 32.3 pg (27.0-33.0); MEAN CORPUSCULAR HGB CONC 32.8 g/dl (32.0-36.5); MEAN CORPUSCULAR VOLUME 98.5 fl (80.0-96.0); PLATELET COUNT, AUTOMATED 252 10^3/uL (150-450); RED BLOOD COUNT 3.37 10^6/uL (4.30-6.10); WHITE BLOOD COUNT 8.2 10^3/uL (4.0-10.0)
[2023-07-27 18:57] LABS: CALCIUM LEVEL 9.3 MG/DL (8.3-10.6); CREATININE FOR GFR 1.56 MG/DL (0.70-1.30); GLOMERULAR FILTRATION RATE 48.1 (>49)
== END ==
LOC: M SHH 17:11
PROVIDERS: ATTEND Physician Assistant Medical
DX: I50.20 Unspecified systolic (congestive) heart failure (principal)

== ENCOUNTER → 2023-08-15 | Outpatient (REF) | payer MEDICARE ==
[2023-08-15 14:07] LABS: HEMATOCRIT 34.1 % (42.0-52.0); MEAN CORPUSCULAR HGB CONC 32.3 g/dl (32.0-36.5); MEAN CORPUSCULAR VOLUME 99.1 fl (80.0-96.0); PLATELET COUNT, AUTOMATED 280 10^3/uL (150-450); RED BLOOD COUNT 3.44 10^6/uL (4.30-6.10); WHITE BLOOD COUNT 8.3 10^3/uL (4.0-10.0)
[2023-08-15 14:29] LABS: CALCIUM LEVEL 9.3 MG/DL (8.3-10.6); CREATININE FOR GFR 1.91 MG/DL (0.70-1.30); GLOMERULAR FILTRATION RATE 38.1 (>49); POTASSIUM SERUM 4.1 MMOL/L (3.5-5.1)
== END ==
LOC: M SHH 13:17
DX: I50.9 Heart failure, unspecified (principal)

== ENCOUNTER → 2023-08-24 | Outpatient (REF) | payer MEDICARE ==
[2023-08-24 18:59] LABS: CALCIUM LEVEL 8.7 MG/DL (8.3-10.6); CREATININE FOR GFR 1.84 MG/DL (0.70-1.30); GLOMERULAR FILTRATION RATE 39.8 (>49); POTASSIUM SERUM 3.6 MMOL/L (3.5-5.1)
[2023-08-24 19:00] LABS: HEMATOCRIT 35.2 % (42.0-52.0); HEMOGLOBIN 11.4 g/dl (13.5-17.5); MEAN CORPUSCULAR HEMOGLOBIN 32.1 pg (27.0-33.0); MEAN CORPUSCULAR HGB CONC 32.4 g/dl (32.0-36.5); MEAN CORPUSCULAR VOLUME 99.2 fl (80.0-96.0); PLATELET COUNT, AUTOMATED 263 10^3/uL (150-450); RED BLOOD COUNT 3.55 10^6/uL (4.30-6.10); WHITE BLOOD COUNT 8.1 10^3/uL (4.0-10.0)
== END ==
LOC: M SHH 16:58
PROVIDERS: ATTEND Physician Assistant Medical
DX: I50.20 Unspecified systolic (congestive) heart failure (principal)

== ENCOUNTER → 2023-08-31 | Outpatient (REF) | payer MEDICARE ==
[2023-08-31 13:02] LABS: HEMATOCRIT 33.7 % (42.0-52.0); HEMOGLOBIN 11.3 g/dl (13.5-17.5); MEAN CORPUSCULAR HEMOGLOBIN 31.9 pg (27.0-33.0); MEAN CORPUSCULAR HGB CONC 33.5 g/dl (32.0-36.5); MEAN CORPUSCULAR VOLUME 95.2 fl (80.0-96.0); PLATELET COUNT, AUTOMATED 212 10^3/uL (150-450); RED BLOOD COUNT 3.54 10^6/uL (4.30-6.10); WHITE BLOOD COUNT 9.4 10^3/uL (4.0-10.0)
[2023-08-31 13:24] LABS: CALCIUM LEVEL 9.3 MG/DL (8.3-10.6); CREATININE FOR GFR 2.05 MG/DL (0.70-1.30); GLOMERULAR FILTRATION RATE 35.1 (>49); POTASSIUM SERUM 4.2 MMOL/L (3.5-5.1)
== END ==
LOC: M SHH 12:31
PROVIDERS: ATTEND Physician Assistant Medical
DX: I50.20 Unspecified systolic (congestive) heart failure (principal)

== ENCOUNTER → 2023-09-05 | Outpatient (REF) | payer MEDICARE ==
[2023-09-05 18:28] LABS: HEMATOCRIT 36.1 % (42.0-52.0); HEMOGLOBIN 11.9 g/dl (13.5-17.5); MEAN CORPUSCULAR HEMOGLOBIN 31.5 pg (27.0-33.0); MEAN CORPUSCULAR VOLUME 95.5 fl (80.0-96.0); PLATELET COUNT, AUTOMATED 203 10^3/uL (150-450); RED BLOOD COUNT 3.78 10^6/uL (4.30-6.10); WHITE BLOOD COUNT 8.2 10^3/uL (4.0-10.0)
[2023-09-05 18:45] LABS: CALCIUM LEVEL 10.2 MG/DL (8.3-10.6); CREATININE FOR GFR 2.08 MG/DL (0.70-1.30); GLOMERULAR FILTRATION RATE 34.5 (>49); POTASSIUM SERUM 4.5 MMOL/L (3.5-5.1)
== END ==
LOC: M SHH 17:27
PROVIDERS: ATTEND Physician Assistant Medical
DX: I50.20 Unspecified systolic (congestive) heart failure (principal)

== ENCOUNTER → 2023-09-12 | Outpatient (REF) | payer MEDICARE ==
[2023-09-12 12:49] LABS: HEMATOCRIT 35.3 % (42.0-52.0); HEMOGLOBIN 11.7 g/dl (13.5-17.5); MEAN CORPUSCULAR HEMOGLOBIN 32.6 pg (27.0-33.0); MEAN CORPUSCULAR HGB CONC 33.1 g/dl (32.0-36.5); MEAN CORPUSCULAR VOLUME 98.3 fl (80.0-96.0); PLATELET COUNT, AUTOMATED 219 10^3/uL (150-450); RED BLOOD COUNT 3.59 10^6/uL (4.30-6.10); WHITE BLOOD COUNT 9.4 10^3/uL (4.0-10.0)
[2023-09-12 13:24] LABS: CALCIUM LEVEL 9.4 MG/DL (8.3-10.6); CREATININE FOR GFR 1.74 MG/DL (0.70-1.30); GLOMERULAR FILTRATION RATE 42.4 (>49); POTASSIUM SERUM 3.8 MMOL/L (3.5-5.1)
== END ==
LOC: M SHH 11:35
PROVIDERS: ATTEND Physician Assistant Medical
DX: I50.20 Unspecified systolic (congestive) heart failure (principal)